=== PATIENT | female | born 1975 | race Caucasian/White ===

== ENCOUNTER → 2020-02-04 09:31 | Outpatient (REF) | payer OTHER, SELFPAY ==
--- NOTE | 2020-02-04 09:30 | CA_ITS ---
Transthoracic Echocardiogram Patient (Last, First, Middle): Brook oGnzales, Gender: Female Date of : 1975 Age: 44 Procedure Date: 02/04/2020 Procedure Type: Transthoracic Echocardiogram Location: OP Height: 157.48 cm Weight: 116.58 kg BSA: 2.13 m2 Heart Rate: bpm BP: 110 / 78 mmHg Coding Specialist: Referring MD: Abdias Yu MD Symptoms: I50.20 HFrEF,I42.8 NON ISCHEMIC CMP, I10 HTN Study Quality: Good ECG Rhythm: Sinus Conclusions: - The left ventricular systolic function is severely decreased. The visually estimated ejection fraction is between 25-30%. Findings Procedure Information Contrast agent, definity, is being given per protocol without apparent complications. Left Ventricle Normal left ventricular cavity size. The left ventricular systolic function is severely decreased. The visually estimated ejection fraction is between 25-30%. The calculated ejection fraction is 29% by biplane method. There is severe global hypokinesis. Prior Study Comparison No significant change compared to prior study dated: 08/10/2019. Measurements 2D Linear Measurements LVIDd: 5.03 3.9-5.3/4.2-5.9 cm LVIDd Index: 2.36 2.4-3.2/2.2-3.1 cm/m2 LVIDs: 4.25 2.0-3.6 cm 2D Systolic Function EF 4C: 24.20 >55% EF 2C: 32.10 >55% EF BiP: 28.60 >55% Mitral Valve MV Pk E: 0.79 MV PK A: 0.67 MV Decel Time: 211.00 E/A: 1.20 E'Lateral: 4.14 E'Medial: 3.97 E/E' Med: 19.90 E/E' Lat: 19.10 PHT: 62.00 MVA PHT: 3.55 Decel [place]: 3.74 Diastolic Function MV Pk E: 0.79 MV Pk A: 0.67 E/A: 1.20 E'Medial: 3.97 E/E' Med: 19.90 E' Laterial: 4.14 E/E' Lat: 19.10 Updated in Other Vendor System with Status of Final Ruben Patel MD electronically signed on 02/06/2020 12:42:51 PM with status of Final
== END ==
LOC: HO.CARD 09:31
PROVIDERS: Visit Provider Internal Medicine Cardiovascular Disease
DX: I42.8 Other cardiomyopathies (principal); I11.0 Hypertensive heart disease with heart failure; I50.20 Unspecified systolic (congestive) heart failure
CPT/HCPCS: 93308; Q9957

== ENCOUNTER → 2020-02-11 10:58 | Outpatient (BNVA) | payer OTHER, SELFPAY | PROVIDERS: PCP Internal Medicine; Visit Provider Internal Medicine Cardiovascular Disease | DX: I50.22 Chronic systolic (congestive) heart failure (principal); I42.8 Other cardiomyopathies | CPT/HCPCS: 99212 ==

== ENCOUNTER 2020-06-04 12:05 | Inpatient (IN) | payer OTHER, SELFPAY ==
[2020-06-04] VITALS (13 sets, daily range): BP systolic 142–200; BP diastolic 77–130; PULSE 90–103; RESP 16–22; TEMP 36–37.1; O2SAT 95–100; BMI 51.0
--- NOTE | ~2020-06-04 | XR_ITS ---
EXAMINATION: XR CHEST CLINICAL INFORMATION: Pneumonia. Follow-up. COMPARISON: CT chest noncontrast 06/04/2020, chest radiographs 06/04/2020, 07/10/2019 TECHNIQUE: 2 views of the chest were obtained. FINDINGS: There is groundglass opacity right lateral base better appreciated on the CT study. Subsegmental atelectasis is seen right midlung zone. The effusions are decreased with only minimal blunting posterior costophrenic sulci. The vascularity is normal. The cardiac and hilar and mediastinal contours and bony structures are unremarkable. XR/XR chest 2V IMPRESSION: 1. Groundglass opacity right lateral base similar to CT 06/04/2020. 2. Subsegmental atelectasis right mid zone. 3. Small bibasilar effusions decreased.
--- NOTE | ~2020-06-04 | CT_ITS ---
EXAMINATION: CT CHEST WITHOUT CONTRAST CLINICAL INFORMATION: Abnormality seen on abdominal CT same day COMPARISON: CT abdomen earlier today, chest radiograph earlier today, chest CT 09/29/2019 TECHNIQUE: Multidetector volumetric CT imaging of the chest was done. Axial MIP volume rendering provided. Sagittal and coronal reformatted images were obtained. This CT examination was performed using dose optimization techniques as appropriate, variously including the following: *Automated exposure control *Adjustment of mA and/or kV according to patient size (this includes techniques or standardized protocols for targeted exams where dose is matched to indication/reason for exam; i.e. extremities or head) *Use of iterative reconstruction technique DLP: 424 mGy-cm FINDINGS: LUNGS and PLEURA: Nonspecific mosaic groundglass changes are present mostly dependently in both lungs with associated small bilateral pleural effusions and associated generalized thickening of interstitium. These findings are mostly suggestive of CHF with interstitial edema. Consolidation/groundglass opacities are seen in the anterobasal segment of the right lower lobe as well as anteriorly in the right middle lobe. No other focal opacities are seen. MEDIASTINUM: Mediastinal nodes are present in the AP window region as well as the pretracheal region the largest measuring 2.6 x 2.1 cm, AXILLA: No lymphadenopathy. UPPER ABDOMEN: See CT abdomen report from earlier today. A cyst is present in the liver. OSSEOUS STRUCTURES: Unremarkable. CT/CT chest wo con IMPRESSION: Cardiomegaly and increased interstitial markings with bilateral pleural effusions. The most likely diagnosis is CHF with interstitial edema. Associated focal infiltrates in the right middle lobe and right lower lobe may be infectious. Nonspecific mediastinal nodes most likely reactive.
--- NOTE | ~2020-06-04 | XR_ITS ---
EXAMINATION: XR CHEST CLINICAL INFORMATION: Cough. Shortness of breath. COMPARISON: Chest done on 07/10/2019. TECHNIQUE: 2 views of the chest were obtained. FINDINGS: Previously documented dense airspace opacity at left mid to lower lung field shows interval resolution. The cardiac mediastinal silhouette is enlarged. There is diffuse apparent opacity identified within the right mid to lower lung field, may represent layering pleural effusion versus asymmetric edema. Small left-sided pleural effusion is present. Mild pulmonary venous congestion. XR/XR chest 2V IMPRESSION: 1. Enlarged cardiac mediastinal silhouette with asymmetric opacity within the right mid to lower lung field, may represent asymmetric pulmonary edema/infiltrate/combination thereof versus layering effusion. Small left-sided pleural effusion is also noted. 2. Previously documented dense airspace opacity at left mid to lower lung field shows interval resolution.
--- NOTE | ~2020-06-04 | CT_ITS ---
EXAMINATION: CT ABDOMEN AND PELVIS WITH CONTRAST CLINICAL INFORMATION: Right-sided abdominal pain. COMPARISON: 09/29/2019 TECHNIQUE: Multidetector volumetric images were obtained from the superior aspect of the liver through the pubic symphysis following administration 85 mL of Omnipaque 350 intravenous contrast. Sagittal and coronal reformatted images were obtained on the technologist's workstation. Oral contrast: No This CT examination was performed using dose optimization techniques as appropriate, variously including the following: *Automated exposure control *Adjustment of mA and/or kV according to patient size (this includes techniques or standardized protocols for targeted exams where dose is matched to indication/reason for exam; i.e. extremities or head) *Use of iterative reconstruction technique DLP: 1102 mGy-cm FINDINGS: LUNG BASES: There is diffuse groundglass haziness in both lower lobes and a patchy airspace consolidation right upper lobe anterior segment adjacent to the major fissure. Heart size is mildly enlarged. There is small bilateral pleural effusions. LIVER, GALLBLADDER, AND BILIARY TREE: The liver is normal in size, shape, and attenuation. There is a 1.1 cm lesion in the right hepatic lobe caudate segment. No additional lesions seen. The gallbladder is nondistended with enhancing area within the gallbladder lumen. There is very gallbladder fluid collection. Similar findings were seen on previous study. Findings are suspicious for cholecystitis. No radiopaque calculi seen. The CBD is normal caliber. PANCREAS: Unremarkable. SPLEEN: Unremarkable. ADRENAL GLANDS: Unremarkable. KIDNEYS AND URETERS: The kidneys are normal in size, shape, and attenuation. No hydronephrosis, hydroureter, or calculi seen. No perinephric stranding. BLADDER: Unremarkable. GASTROINTESTINAL TRACT: There is scattered stool, diverticuli and gas seen throughout the colon without significant distention. The small bowel loops are normal caliber. Appendix is normal caliber. There is no free air or free fluid seen.. ABDOMINAL WALL: There are 2 midline supraumbilical and infraumbilical hernias containing fat . Also visualized is a small umbilical hernia. There is mild haziness in the abdominal wall. LYMPH NODES: Normal. VASCULAR: Unremarkable. PELVIC VISCERA: There is mild fat stranding in the adnexa bilaterally. A pelvic mass seen. The uterus is anteverted and appears unremarkable. No free fluid seen in the cul-de-sac. OSSEOUS STRUCTURES: Mild ventral spondylosis lower dorsal spine. No lytic process. There is mild sclerosis involving bilateral SI joints similar to previous study. CT/CT abdomen pelvis w con IMPRESSION: Right lateral small pleural effusions with bibasilar groundglass attenuation likely low-grade inflammation. Addition there is a right lower lobe anterior segment infiltrate. Mild cardiomegaly. Slight interval or dense area or enhancement in the gallbladder lumen with mild thickening and surrounding fluid suspicious for acalculus cholecystitis. Similar findings were seen on the previous exam 2019. Hepatic cyst is stable. Umbilical, supraumbilical and infraumbilical midline hernias containing fat. These are stable. Mild haziness in abdominal wall could be secondary to mild edema. There is minimal haziness in the parametrium bilaterally similar previous study. Bilateral sacroiliitis similar to previous study from 2019
--- NOTE | ~2020-06-04 | NM_ITS ---
EXAMINATION: NM IMAGING STUDY WITH CCK BILIARY TRACT CLINICAL INFORMATION: Acalculus cholecystitis COMPARISON: 06/04/2020 TECHNIQUE: Serial gamma scintillation camera images were obtained over the abdomen for a total observation period of 90 minutes following the intravenous administration of 5 mCi Tc-99m mebrofenin. FINDINGS: Prompt homogeneous radiotracer accumulation in the liver. The gallbladder is visualized rapidly, by 15 minutes. Radiotracer accumulation within the small bowel is visible by 15 minutes as well, increasing progressively. At 60 minutes post injection, a 30-minute infusion of 2.5 mcg Sincalide was then begun and an additional 40 minutes of images were obtained. The calculated gallbladder ejection fraction is 53% (normal gallbladder ejection fraction is greater than 35%). NM/AR hepatobiliary w pharm IMPRESSION: Normal hepatobiliary scintigraphy. Radiotracer accumulation in the gallbladder is strong evidence of a patent cystic duct. Normal gallbladder ejection fraction.
--- NOTE | 2020-06-04 13:01 | ED_ITS ---
HPI - General Adult General Chief complaint: General Medical Stated complaint: multiple complaints Time Seen by Provider: 06/04/20 12:40 Source: patient Mode of arrival: ambulatory Limitations: no limitations History of Present Illness HPI narrative: 44-year-old female who presents emergency department for evaluation of abdominal pain, shortness of breath, cough and chest pain. The patient states she has been having constant, abdominal pain x2 weeks. The patient runs or hand over her entire abdomen when asked to localize the pain but she states that the right side of her abdomen hurts more than her left, the pain is constant, sharp, associated with distension, nausea with no vomiting. She states that she has had very small bowel movements over the past 2 weeks. She has been passing gas. She states she has had similar pain in the past when she has had gastritis. She states that she is feeling short of breath x1 month and it has gotten progressively worse. She states she has intermittent, sharp, l eft-sided chest pain which lasts minutes and she has had multiple episodes over the past 2 weeks. She has noted increased swelling of her lower extremities x2 weeks. She has had a cough which is productive of mucus occasionally productive of blood. She has had sweats with no fever. The patient states she has 2 abdominal hernias and she states that her hernias feels distended and are painful. The patient has not had a COVID-19 inspection. She has not been vaccinated for COVID-19. Related Data Home Medications Medication Instructions Recorded Confirmed amitriptyline 25 mg tablet 25 mg PO BEDTIME 02/11/20 02/11/20 bupropion HCl 150 mg 24 hr tablet, 150 mg PO QAM 02/11/20 02/11/20 extended release carvedilol 25 mg tablet 25 mg PO BID 02/11/20 02/11/20 paroxetine HCl 30 mg tablet 30 mg PO DAILY 02/11/20 02/11/20 spironolactone 50 mg tablet 50 mg PO DAILY 02/11/20 02/11/20 zolpidem 10 mg tablet 10 mg PO BEDTIME PRN 02/11/20 02/11/20 Previous Rx's Medication Instructions Recorded blood pressure monitor #1 ea 02/11/20 empagliflozin 10 mg tablet 10 mg PO DAILY #30 tab 02/11/20 metolazone 2.5 mg tablet 2.5 mg PO .weekly #20 tab 02/11/20 sacubitril 97 mg-valsartan 103 mg 1 tab PO BID #60 tab 02/11/20 tablet bumetanide 2 mg tablet 2 mg PO BID #60 tab 03/16/20 Allergies Allergy/AdvReac Type Severity Reaction Status Date / Time SEASONAL ALLERGIES Allergy Unknown ASTHMA, Uncoded 06/04/20 12:12 NASAL CONGESTION Review of Systems Review of Systems: Yes all other systems are reviewed and are negative Neurologic: Reports Abnormal speech present [facility] Past Medical History [facility] Narrative: The patient smokes 1 pack of cigarettes per day times greater than 30 years, she cuticle drinks alcohol, she denies alcohol use. Source: unable to obtain Medical History Chronic HFrEF (heart failure with reduced ejection fraction) HTN (hypertension) Nonischemic cardiomyopathy Obesity JONI (obstructive sleep apnea) Surgical History Hx of section Family History Family History Mother HTN (hypertension) Social History Social History Alcohol intake: never Smoking Status: Current every day smoker Use of substances other than those prescribed or required for medical reasons: No Advance Directives: No Advance Directives Information Provided: Yes Physical Exam Vital Signs: Vital Signs: Last Vital Signs Temp 98.0 F 06/04/20 13:50 Pulse 103 H 06/04/20 13:50 Resp 16 06/04/20 16:20 BP 187/112 H 06/04/20 13:50 Pulse Ox 96 06/04/20 13:50 Body Mass Index 51.0 Const: General: cooperative Nutritional Appearance: obese morbidly obese Orientation/consciousness: oriented to person and oriented to place Limitations: no limitations HENMT: Head: Yes normal to inspection, Yes normocephalic and Yes atraumatic Ears: external ears normal General nose exam: Normal external nose present Face and sinus: Yes normal facial exam Mouth: Normal oral and palatal mucosa present Throat: Yes posterior oropharynx normal Eyes: Periorbital: periorbital findings normal Eyelids: Yes eyelids normal Conjunctivae: conjunctivae normal Sclerae: sclerae normal Corneas: corn eas normal Pupils: Equal, round and reactive pupils present Direct Ophthalmoscopy: normal light reflex Neck: Neck: Yes full ROM, Yes no lymphadenopathy, Yes no meningeal signs, Yes trachea midline and Yes supple Chest: Chest palpation & inspection: normal inspection of the chest and normal palpation of entire chest wall Resp: Effort & Inspection: normal respiratory effort and able to speak in complete sentences Auscultation: clear to auscultation bilaterally Cardio: Rate: regular rate Rhythm: regular rhythm Heart sounds: S1 normal heart sound present, S2 normal heart sound present and no murmurs GI: Other: Tender been abdominal hernia and periumbilical hernia Inspection: Yes normal to inspection and Yes obesity Palpation (GI): Soft to palpation, Tenderness to palpation present (GI) ([id number], diffuse tenderness) in the RLQ (Moderate) and in the RUQ (Moderate), no guarding, not rigid and No hepatosplenomegaly present : General: Yes no CVA tenderness Back/Spine/Pelvis: Back: no CVA tenderness Cervical Spine: normal cervical lordosis Thoracic/Lumbar Spine: thoracic and lumbar spine normal to inspection Skin: Lesions: no lesions Rashes: no rashes Wounds: no wounds Neuro: General: oriented to person, oriented to place and no meningeal signs Cranial nerves: Yes Equal, round and reactive pupils present Cognition (Neuro): normal cognition Speech: Abnormal speech present Motor exam (neuro): 5/5 motor strength present throughout Extrem: Other: Trace to 1+ pitting edema, symmetric General: Yes normal to inspection and Yes full ROM Psych: Appearance: well kempt Mental Status: mental status grossly normal Speech and movement: Normal speech and movement present Affect: normal affect Attitude: cooperative Thought process: Normal thought process present Thought content: Normal thought content present Course Course Course Narrative: 44-year-old female who presents emergency department for evaluation of abdominal pain, shortness of breath, cough and chest pain. Physical examination revealed a morbidly obese female with abnormal vital signs including an elevated blood pressure of 200/130, elevated pulse of 103 and elevated respiratory rate of 22. O2 saturation was 100% on room air and she was afebrile. Examination revealed diffuse abdominal tenderness with increased tenderness over the right upper and right lower quadrants of her abdomen. The patient does have to soft abdominal hernias, on located in the mid abdomen 1 periumbilical. I ordered a CBC, CMP, lipase, troponin, EKG, two view chest x- ray and a CT scan of the abdomen pelvis with IV contrast only. Patient's pain w as treated with morphine 4 mg IV and Zofran 4 mg IV. She was also ordered to get normal saline x1 L IV. 1557: The patient's laboratory evaluation [place] an [place] [address], patient had an elevated BNP of 2519 and an elevated troponin of 48.2. LFTs and lipase were normal. COVID-19 test was negative. Chest x-ray revealed asymmetric opacities within the right mid and lower lung [place] which the radiologist felt could be consistent with an asymmetric pulmonary edema versus infiltrate versus layering pleural effusion. CT scan of the abdomen pelvis revealed diffuse ground-glass haziness in both lower lobes and a patchy airspace consolidation in the right upper lobe anterior segment adjacent to the major fissure. This is concerning for possible pneumonia. The patient's gallbladder is nondistended with enhanced area within the gallbladder lumen with mild thickening and surrounding fluid suspicious for a calculous cholecystitis. Patient does have supraumbilical and infraumbilical hernias which are containing fat only. Given these findings, I am concerned that the patient may have a of right-sided pneumonia and right acalculous cholecystitis. Blood cultures will be obtained. Patient also has an elevation in her high sensitivity troponin this will be repeated at 4:30 p.m.. The patient will be treated with Zosyn 4.5 g IV which we give her lung and intra-abdominal coverage. Patient's pain only slightly improved with the initial dose of morphine therefore she was ordered to get a 2nd dose of morphine 4 mg IV. I will discuss the patient's presentation with the covering hospitalist and with the covering surgeon. 1616: I did discuss the patient's presentation with the covering surgical physician property management assistant, Mr. Dutton. He recommended that the patient be admitted and that the patient get a HIDA scan to further evaluate her gallbladder. 16 40: I did discuss the patient's presentation with the covering hospitalist, Dr. Brower. He recommended the patient get a CT scan of the chest without IV contrast evaluate for pneumonia versus CHF. The patient will be admitted to the hospitalist service for further treatment. Medical Decision Making Lab Data Result diagrams: 06/04/20 13:33 04/10/21 13:33 Labs: Lab Results 06/04/20 06/04/20 06/04/20 Range/Units 13:20 13:33 13:33 WBC 14.2 H (4.8-10.8) X10*3/uL RBC 4.90 (4.20-5.50) X10*6/uL Hgb 12.8 (12.0-16.0) g/dl Hct 41.5 (37-47) % MCV 84.7 (80-98) fL MCH 26.1 L (27.0-33.0) pg MCHC 30.8 L (31.0-35.0) g/dl RDW 16.6 H (11.0-16.0) % Plt Count 253 (160-400) X10*3/uL MPV 10.5 (9.4-12.3) fL Immature Gran % (Auto) 0.4 (0.0-0.4) % Neut % (Auto) 79.8 H (45-73) % Lymph % (Auto) 14.0 L (20-40) % [place] % (Auto) 4.9 (2-11) % Eos % (Auto) 0.7 (0-4) % Baso % (Auto) 0.2 (0-2) % Lymph # (Auto) 2.0 (1.2-4.9) X10*3/uL [place] # (Auto) 0.7 (0.1-1.2) X10*3/uL Eos # (Auto) 0.1 (0.0-0.4) X10*3/uL Baso # (Auto) 0.0 (0.0-0.2) X10*3/uL Abs Immat Gran (auto) 0.06 H (0.00-0.03) X10*3/uL Absolute Neuts (auto) 11.3 H (2.0-8.3) X10*3/uL Absolute Nucleated RBC 0.000 (0.0-0.012) X10*3/uL Nucleated RBC % (auto) 0.0 (0.0-0.2) /100WBC PT (10.8-13.0) SEC INR (0.9-1.1) APTT (24.1-38.0) SEC Sodium (135-145) mmol/L Potassium (3.3-5.1) mmol/L Chloride (96-108) mmol/L Carbon Dioxide (22-29) mmol/L Anion Gap (12-20) BUN (9-16) mg/dL Creatinine (0.5-1.4) mg/dL Estim Creat Clear Calc Estimated GFR Random Glucose (60-115) mg/dL Lactic Acid (0.5-2.0) mmol/L Calcium (8.4-10.2) mg/dL Total Bilirubin (0.0-1.0) mg/dL AST (5-31) U/L ALT (0-31) U/L Alkaline Phosphatase (39-117) U/L Troponin I High Sens (<3.5-17.0) ng/L B-Natriuretic Peptide 2519 H (<100) pg/mL Total Protein (6.5-8.0) g/dL Albumin (3.5-5.0) g/dL Lipase (8-78) U/L COVID-19 (ANABELLA) Negative (Negative) COVID-19 Clin Com See Note 06/04/20 06/04/20 06/04/20 Range/Units 13:33 13:33 13:33 WBC (4.8-10.8) X10*3/uL RBC (4.20-5.50) X10*6/uL Hgb (12.0-16.0) g/dl Hct (37-47) % MCV (80-98) fL MCH (27.0-33.0) pg MCHC (31.0-35.0) g/dl RDW (11.0-16.0) % Plt Count (160-400) X10*3/uL MPV (9.4-12.3) fL Immature Gran % (Auto) (0.0-0.4) % Neut % (Auto) (45-73) % Lymph % (Auto) (20-40) % [place] % (Auto) (2-11) % Eos % (Auto) (0-4) % Baso % (Auto) (0-2) % Lymph # (Auto) (1.2-4.9) X10*3/uL [place] # (Auto) (0.1-1.2) X10*3/uL Eos # (Auto) (0.0-0.4) X10*3/uL Baso # (Auto) (0.0-0.2) X10*3/uL Abs Immat Gran (auto) (0.00-0.03) X10*3/uL Absolute Neuts (auto) (2.0-8.3) X10*3/uL Absolute Nucleated RBC (0.0-0.012) X10*3/uL Nucleated RBC % (auto) (0.0-0.2) /100WBC PT (10.8-13.0) SEC INR (0.9-1.1) APTT (24.1-38.0) SEC Sodium 139 (135-145) mmol/L Potassium 4.4 (3.3-5.1) mmol/L Chloride 109 H (96-108) mmol/L Carbon Dioxide 19 L (22-29) mmol/L Anion Gap 15 (12-20) BUN 17 H (9-16) mg/dL Creatinine 0.77 (0.5-1.4) mg/dL Estim Creat Clear Calc 115.4 Estimated GFR > 60 Random Glucose 104 (60-115) mg/dL Lactic Acid 1.2 (0.5-2.0) mmol/L Calcium 8.5 (8.4-10.2) mg/dL Total Bilirubin 1.7 H (0.0-1.0) mg/dL AST 24 (5-31) U/L ALT 22 (0-31) U/L Alkaline Phosphatase 75 (39-117) U/L Troponin I High Sens 48.2 H (<3.5-17.0) ng/L B-Natriuretic Peptide (<100) pg/mL Total Protein 6.7 (6.5-8.0) g/dL Albumin 3.7 (3.5-5.0) g/dL Lipase 8 (8-78) U/L COVID-19 (ANABELLA) (Negative) COVID-19 Clin Com 06/04/20 Range/Units 14:24 WBC (4.8-10.8) X10*3/uL RBC (4.20-5.50) X10*6/uL Hgb (12.0-16.0) g/dl Hct (37-47) % MCV (80-98) fL MCH (27.0-33.0) pg MCHC (31.0-35.0) g/dl RDW (11.0-16.0) % Plt Count (160-400) X10*3/uL MPV (9.4-12.3) fL Immature Gran % (Auto) (0.0-0.4) % Neut % (Auto) (45-73) % Lymph % (Auto) (20-40) % [place] % (Auto) (2-11) % Eos % (Auto) (0-4) % Baso % (Auto) (0-2) % Lymph # (Auto) (1.2-4.9) X10*3/uL [place] # (Auto) (0.1-1.2) X10*3/uL Eos # (Auto) (0.0-0.4) X10*3/uL Baso # (Auto) (0.0-0.2) X10*3/uL Abs Immat Gran (auto) (0.00-0.03) X10*3/uL Absolute Neuts (auto) (2.0-8.3) X10*3/uL Absolute Nucleated RBC (0.0-0.012) X10*3/uL Nucleated RBC % (auto) (0.0-0.2) /100WBC PT 14.9 H (10.8-13.0) SEC INR 1.3 H (0.9-1.1) APTT 30.3 (24.1-38.0) SEC Sodium (135-145) mmol/L Potassium (3.3-5.1) mmol/L Chloride (96-108) mmol/L Carbon Dioxide (22-29) mmol/L Anion Gap (12-20) BUN (9-16) mg/dL Creatinine (0.5-1.4) mg/dL Estim Creat Clear Calc Estimated GFR Random Glucose (60-115) mg/dL Lactic Acid (0.5-2.0) mmol/L Calcium (8.4-10.2) mg/dL Total Bilirubin (0.0-1.0) mg/dL AST (5-31) U/L ALT (0-31) U/L Alkaline Phosphatase (39-117) U/L Troponin I High Sens (<3.5-17.0) ng/L B-Natriuretic Peptide (<100) pg/mL Total Protein (6.5-8.0) g/dL Albumin (3.5-5.0) g/dL Lipase (8-78) U/L COVID-19 (ANABELLA) (Negative) COVID-19 Clin Com ECG Data Attestation: I personally reviewed and interpreted this ECG as follows: Interpretation: 1611: Normal sinus rhythm of rate is 97, normal IN and QRS intervals, prolonged QTC interval of 485 milliseconds, inverted T-waves in lead V5 and V6, no ST segment elevation or depression, no old EKG for comparison. Discharge Plan Discharge Prescriptions: No Action bumetanide 2 mg tablet 2 mg PO BID Qty: 60 RF: 0 carvedilol 25 mg tablet 25 mg PO BID RF: 0 spironolactone 50 mg tablet 50 mg PO DAILY RF: 0 bupropion HCl 150 mg tablet extended release 24 hr 150 mg PO QAM RF: 0 zolpidem 10 mg tablet 10 mg PO BEDTIME PRNRF: 0 paroxetine HCl 30 mg tablet 30 mg PO DAILY RF: 0 amitriptyline 25 mg tablet 25 mg PO BEDTIME RF: 0 Entresto 97-103 mg tablet 1 tab PO BID Qty: 60 RF: 3 Jardiance 10 mg tablet 10 mg PO DAILY Qty: 30 RF: 2 metolazone 2.5 mg tablet 2.5 mg PO .weekly Qty: 20 RF: 5 (DME) blood pressure monitor [Blood Pressure Kit] Kit See Rx Instructions .ROUTE .MEDSUPPLY Qty: 1 RF: 0
[2020-06-04 13:38] LABS: MANUAL DIFF FLAG NO
[2020-06-04 13:41] LABS: Basophils Percent Auto 0.2 % (0-2); Eosinophils Absolute Auto 0.1 X10*3/uL (0.0-0.4); Eosinophils Percent Auto 0.7 % (0-4); Hematocrit 41.5 % (37-47); Hemoglobin 12.8 g/dl (12.0-16.0); Imm Gran Abs Auto 0.06 X10*3/uL (0.00-0.03); Imm Gran Pct Auto 0.4 % (0.0-0.4); Mean Corpuscular HGB Conc 30.8 g/dl (31.0-35.0); Mean Corpuscular Hemoglobin 26.1 pg (27.0-33.0); Mean Corpuscular Volume 84.7 fL (80-98); Mean Platelet Volume 10.5 fL (9.4-12.3); Monocytes Absolute Auto 0.7 X10*3/uL (0.1-1.2); Monocytes Percent Auto 4.9 % (2-11); Neutrophils Absolute Auto 11.3 X10*3/uL (2.0-8.3); Neutrophils Percent Auto 79.8 % (45-73); Platelet Count 253 X10*3/uL (160-400); Red Cell Distribution Width 16.6 % (11.0-16.0); White Blood Count 14.2 X10*3/uL (4.8-10.8)
[2020-06-04] MEDS: Morphine Sulfate 4 MG/ML CARTRIDGE IVPUSH ×2 (13:41→16:20)
[2020-06-04] MEDS: ondansetron HCL 4 MG/2 ML VIAL IVPUSH (13:41)
[2020-06-04] MEDS: 0.9 % Sodium Chloride 1,000 ML 999 ML IV (13:41)
[2020-06-04 13:54] LABS: COVID-19 Test Negative (Negative); IDNOW Serial# 9DD0AD1C
[2020-06-04 14:04] LABS: Lactic Acid 1.2 mmol/L (0.5-2.0)
[2020-06-04 14:10] LABS: Alanine Aminotransferase 22 U/L (0-31); Albumin Level 3.7 g/dL (3.5-5.0); Alkaline Phosphatase 75 U/L (39-117); Anion Gap 15 (12-20); Aspartate Amino Transferase 24 U/L (5-31); B Type Natriuretic Peptide 2519 pg/mL (<100); Bilirubin Total 1.7 mg/dL (0.0-1.0); Blood Urea Nitrogen 17 mg/dL (9-16); Calcium 8.5 mg/dL (8.4-10.2); Carbon Dioxide 19 mmol/L (22-29); Chloride 109 mmol/L (96-108); Creatinine Clr Calc Pharmacy 115.4; Estimated Glomerular Filt Rate > 60; Glucose Random 104 mg/dL (60-115); Lipase 8 U/L (8-78); Potassium 4.4 mmol/L (3.3-5.1); Sodium 139 mmol/L (135-145); Total Protein 6.7 g/dL (6.5-8.0)
[2020-06-04 14:19] LABS: Troponin-I High Sensitivity 48.2 ng/L (<3.5-17.0)
[2020-06-04 14:36] LABS: INTERNATIONAL NORM RATIO 1.3 (0.9-1.1); Prothrombin Time 14.9 SEC (10.8-13.0)
[2020-06-04 14:39] LABS: Partial Thromboplastin Time 30.3 SEC (24.1-38.0)
[2020-06-04] MEDS: iohexoL 350 MG/ML 100 ML INFUS..BTL IV (14:59)
--- NOTE | 2020-06-04 15:58 | ECG_ITS ---
Test Reason : ABDOMINAL PAIN Blood Pressure : / mmHG Vent. Rate : 097 BPM Atrial Rate : 097 BPM P-R Int : 152 ms QRS Dur : 092 ms QT Int : 382 ms P-R-T Axes : 066 037 049 degrees QTc Int : 485 ms Normal sinus rhythm Possible Left atrial enlargement Left ventricular hypertrophy with repolizeration abnormality. Prolonged QT Abnormal ECG When compared with ECG of 10-JUL-2019 13:18, Nonspecific T wave abnormality now evident in Inferior leads Referred By: Valeriano Laguna Electronically Signed By:BISI WASHINGTON
[2020-06-04] MEDS: Piperacillin Sodium/Tazobactam 4.5 GM in 0.9 % Sodium Chloride 100 ML IV ×2 (17:01→20:24)
--- NOTE | 2020-06-04 17:43 | P.HPHOSP_ITS ---
History of Present Illness Date of Service: 06/04/20 Chief Complaint: generalized swelling, dyspnea, RUQ pain Ms Gonzales is a 44 year-old Hungarian- and Iranian-speaking woman with severe nonischemic cardiomyopathy (LVEF 25% 02/04/20) followed by Abdias Yu here at [facility] [place], essential hypertension, JONI on CPAP, and morbid obesity who presents with approximately 3 months of worsening swelling of her legs and abdomen, nearly 50- pound weight gain (dry weight approximately 220 lb), increasing dyspnea on exertion, and 3-pillow orthopnea. She also notes an intermittent dry cough over the last month or so, and today coughed up some blood. She denies fever, nasal congestion, anosmia, or sore throat. She denies contact with any COVID-19 cases. Her , with whom she lives, had his 2nd dose of the COVID-19 vacc ine today; the patient has not had any COVID-19 vaccination. Over the last 2 weeks, she has also developed severe pain in her right upper quadrant, just under her ribcage. The pain is constant and not exacerbated by eating fatty foods. It is associated with nausea and bloating. In the ED, she was noted to be severely hypertensive with BP 200/130; currently 170/116. Room air SaO2 was 100% EKG showed NSR with LAE and LVH with strain pattern. CXR demonstrated cardiac enlargement with asymmetric opacity in the right mid-to lower-lung field concerning for asymmetric pulmonary edema or infiltrate or layering effusion, with a small left-sided effusion. CT of the abdomen demonstrated bibasilar groundglass opacities of the lungs, an anterior RLL infiltrate, enhancement and thickening of the gallbladder with surrounding fluid suspicious for acalculous cholecystitits, stable periumbilical hernias, and haziness of the abdominal wall. She was given about 500 mL of normal saline and a dose of IV piperacillin/tazobactam. At that point, the hospitalist team was called to evaluate and admit the patient. Review of Systems Review of Systems: Yes all other systems are reviewed and are negative [facility] Medical History Chronic HFrEF (heart failure with reduced ejection fraction) HTN (hypertension) Nonischemic cardiomyopathy Obesity JONI (obstructive sleep apnea) Family History Mother HTN (hypertension) Surgical History Hx of section Social History Alcohol intake: never Smoking Status: Current every day smoker Use of substances other than those prescribed or required for medical reasons: No Advance Directives: No Advance Directives Information Provided: Yes Meds Allergies Allergy/AdvReac Type Severity Reaction Status Date / Time SEASONAL ALLERGIES Allergy Unknown ASTHMA, Uncoded 06/04/20 12:12 NASAL CONGESTION Active Medications: Current Medications Generic Name Dose Route Start Last Admin Trade Name Freq PRN Reason Stop Dose Admin Acetaminophen 650 mg 06/04/20 17:35 Acetaminophen 325 Mg Tablet PO Q6H PRN fever or pain Carvedilol 25 mg 06/04/20 21:00 Carvedilol 25 Mg Tablet PO BID JOSTIN Protocol Chlorothiazide Sodium 500 mg 06/04/20 17:34 Chlorothiazide Sodium 500 Mg Vial IVPUSH 06/04/20 17:35 ONCE ONE Protocol Docusate Sodium 100 mg 06/04/20 17:35 Docusate Sodium 100 Mg Capsule PO BID PRN Constipation Enoxaparin Sodium 40 mg 06/04/20 17:45 Enoxaparin Sodium 40 Mg/0.4 Ml Syringe SUBCUT Q24H JOSTIN Bumetanide 25 mg/ IV 100 mls @ 2 mls/hr 06/04/20 17:45 Miscellaneous Supplies IVCONT .Q24H JOSTIN 0.5 MG/HR Loratadine 10 mg 06/05/20 09:00 Loratadine 10 Mg Tablet PO DAILY JOSTIN Ondansetron HCl 4 mg 06/04/20 17:35 Ondansetron Hcl 4 Mg/2 Ml Vial IVPUSH Q8H PRN Nausea and Vomiting Pharmacy Consult 1 each 06/04/20 16:43 Consult Rx Perform Med Rec MISCELLANE ONCE PRN Consult order Sodium Chloride 3 ml 06/05/20 00:00 0.9 % Sodium Chloride Flush 3 Ml Syringe IVFLUSH QSHIFT [facility] Home Medications Medication Instructions Recorded Confirmed Last Taken Type carvedilol 25 mg tablet 25 mg PO BID 02/11/20 06/04/20 Unknown History spironolactone 50 mg tablet 50 mg PO DAILY 02/11/20 06/04/20 Unknown History bumetanide 1 tab PO BID 06/04/20 06/04/20 Unknown History cetirizine 1 tab PO DAILY 06/04/20 06/04/20 Unknown History Physical Exam Vital Signs and Narrative: Vital Signs: Last Vital Signs Temp 98.8 F 06/04/20 17:06 Pulse 93 06/04/20 17:06 Resp 17 06/04/20 17:06 BP 170/116 H 06/04/20 17:06 Pulse Ox 100 06/04/20 17:06 Body Mass Index 51.0 Gen: in no acute distress but with obvious generalized edema HEENT: sclera anicteric, moist mucus membranes Neck: supple Lungs: diminished at bases bilaterally Heart: regular rate and rhythm, no murmurs though auscultation limited due to body habitus, JVD Abd: soft, obese, RUQ tender without Pizano sign, generalized abdominal wall edema Ext: 3+ pitting LE edema Skin: warm/well-perfused Neuro: alert and oriented x3, no focal findings Psych: appropriate affect Results Labs CBC and Chem 7: 06/04/20 13:33 06/04/20 13:33 Labs: Laboratory Results - last 24 hr 06/04/20 06/04/20 06/04/20 13:20 13:33 13:33 MCV 84.7 MCH 26.1 L MCHC 30.8 L RDW 16.6 H Plt Count 253 MPV 10.5 Immature Gran % (Auto) 0.4 Neut % (Auto) 79.8 H Lymph % (Auto) 14.0 L Sibley % (Auto) 4.9 Eos % (Auto) 0.7 Baso % (Auto) 0.2 Lymph # (Auto) 2.0 Sibley # (Auto) 0.7 Eos # (Auto) 0.1 Baso # (Auto) 0.0 Abs Immat Gran (auto) 0.06 H Absolute Neuts (auto) 11.3 H Absolute Nucleated RBC 0.000 Nucleated RBC % (auto) 0.0 PT INR APTT Anion Gap Estim Creat Clear Calc Estimated GFR Random Glucose Lactic Acid Calcium Total Bilirubin AST ALT Alkaline Phosphatase Troponin I High Sens B-Natriuretic Peptide 2519 H Total Protein Albumin Lipase COVID-19 (ANABELLA) Negative COVID-19 Clin Com See Note 06/04/20 06/04/20 06/04/20 13:33 13:33 13:33 MCV MCH MCHC RDW Plt Count MPV Immature Gran % (Auto) Neut % (Auto) Lymph % (Auto) Sibley % (Auto) Eos % (Auto) Baso % (Auto) Lymph # (Auto) Sibley # (Auto) Eos # (Auto) Baso # (Auto) Abs Immat Gran (auto) Absolute Neuts (auto) Absolute Nucleated RBC Nucleated RBC % (auto) PT INR APTT Anion Gap 15 Estim Creat Clear Calc 115.4 Estimated GFR > 60 Random Glucose 104 Lactic Acid 1.2 Calcium 8.5 Total Bilirubin 1.7 H AST 24 ALT 22 Alkaline Phosphatase 75 Troponin I High Sens 48.2 H B-Natriuretic Peptide Total Protein 6.7 Albumin 3.7 Lipase 8 COVID-19 (ANABELLA) COVID-19 Clin Com 06/04/20 14:24 MCV MCH MCHC RDW Plt Count MPV Immature Gran % (Auto) Neut % (Auto) Lymph % (Auto) Sibley % (Auto) Eos % (Auto) Baso % (Auto) Lymph # (Auto) Sibley # (Auto) Eos # (Auto) Baso # (Auto) Abs Immat Gran (auto) Absolute Neuts (auto) Absolute Nucleated RBC Nucleated RBC % (auto) PT 14.9 H INR 1.3 H APTT 30.3 Anion Gap Estim Creat Clear Calc Estimated GFR Random Glucose Lactic Acid Calcium Total Bilirubin AST ALT Alkaline Phosphatase Troponin I High Sens B-Natriuretic Peptide Total Protein Albumin Lipase COVID-19 (ANABELLA) COVID-19 Clin Com Imaging Radiologist's Impressions: Impressions Abdomen/Pelvis CT 06/04/20 12:58 IMPRESSION: Right lateral small pleural effusions with bibasilar groundglass attenuation likely low-grade inflammation. Addition there is a right lower lobe anterior segment infiltrate. Mild cardiomegaly. Slight interval or dense area or enhancement in the gallbladder lumen with mild thickening and surrounding fluid suspicious for acalculus cholecystitis. Similar findings were seen on the previous exam 2019. Hepatic cyst is stable. Umbilical, supraumbilical and infraumbilical midline hernias containing fat. These are stable. Mild haziness in abdominal wall could be secondary to mild edema. There is minimal haziness in the parametrium bilaterally similar previous study. Bilateral sacroiliitis similar to previous study from 2019 Chest X-Ray 06/04/20 12:58 IMPRESSION: 1. Enlarged cardiac mediastinal silhouette with asymmetric opacity within the right mid to lower lung field, may represent asymmetric pulmonary edema/infiltrate/combination thereof versus layering effusion. Small left-sided pleural effusion is also noted. 2. Previously documented dense airspace opacity at left mid to lower lung field shows interval resolution. Assessment and Plan (1) Acute decompensated heart failure: Status: Acute (2) Acalculous cholecystitis: Status: Acute (3) Pneumonia: Qualifiers: Laterality: right Pneumonia type: due to unspecified organism Status: Acute (4) Elevated troponin: Status: Acute (5) Nonischemic cardiomyopathy: Status: Acute (6) Acute on chronic HFrEF (heart failure with reduced ejection fraction): Status: Acute 44 year-old woman with severe HFrEF/nonischemic cardiomyopathy, essential HTN, obstructive sleep apnea, morbid obesity, and tobacco abuse presenting with progressive dyspnea and edema along with 50-lb weight gain over the past 3 months, now with cough with minor hemoptysis, and RUQ pain. She's presenting in acute decompensated heart failure and may have acalculous cholecystitis. There is also a question of pneumonia. # ADHF, acute/chronic HFrEF, nonischemic cardiomyopathy # HTN urgency # troponin elevation - admit to [facility] and start butemanide infusion. will also give 1 dose of IV chlorthiazide. consult Cardiology; trend BNP; monitor BMP, Mg, and I/O - continue carvedilol, Entresto, and spironolactone; will also start Imdur - suspect troponin elevation is due to CHF and HTN, not ACS # acute acalculous cholecystitis - HIDA scan, surgery consult, IV piperacillin/tazobactam # possible pneumonia with hemoptysis - could all be due to pulmonary edema from CHF, but will continue piperacillin/tazobactam [also for cholecystitis] and add doxycycline; follow blood cultures and trend PCT. out of an abundance of caution, will check CT chest and also perform respiratory virus PCR panel. # JONI - CPAP as per home regimen # morbid obesity - weight loss will be encouraged # tobacco abuse - NRT # VTE ppx - SCDs; in the presence of hemoptysis, will hold off on heparinoids # code - FULL
[2020-06-04 17:44] LABS: C Reactive Protein 0.73 mg/dL (< or = 0.50)
--- NOTE | 2020-06-04 17:47 | PC.NURSE ---
Pt unable to tell this rn name or doses of home meds, has not filled any meds after 01/2020. Pt states she has extras at home...I sometimes take them . Dr. Brower aware.
[2020-06-04 17:54] LABS: Troponin-I High Sensitivity 43.8 ng/L (<3.5-17.0)
[2020-06-04 18:00] LABS: Lactate Dehydrogenase 307 U/L (122-220)
[2020-06-04 18:05] LABS: Ferritin 82 ng/mL (10-250)
[2020-06-04 18:09] LABS: Procalcitonin 0.03 ng/mL
[2020-06-04] MEDS: Bumetanide 25 MG in Container,Empty 0 ML IVCONT (18:43)
[2020-06-04] MEDS: Isosorbide Mononitrate 30 MG TAB.ER.24H PO (18:48)
[2020-06-04] MEDS: Chlorothiazide Sodium 500 MG VIAL IVPUSH (20:20)
[2020-06-04] MEDS: carvediloL 25 MG TABLET PO (20:23)
[2020-06-04] MEDS: Sacubitril/Valsartan 97/103 1 TAB TABLET PO (20:24)
[2020-06-04 20:27] LABS: Glucose Urine UA NEG (NEG); Leukocyte Esterase Urine NEG (NEG); Nitrite Urine NEG (NEG); PH 5.5 (5.0-8.0); Specific Gravity - Urine 1.015 (1.005-1.025); Urine Blood TRACE (NEG); Urine Ketones NEG (NEG); Urine Protein 2+ MG/DL (NEG-TRACE)
[2020-06-04 20:29] LABS: Appearance Urine CLEAR; Color Urine YELLOW
[2020-06-04 20:30] LABS: UPreg QC Valid YES; Urine Pregnancy NEGATIVE (NEGATIVE)
[2020-06-04 20:30] LABS: Adenovirus PCR Not Detected (Not Detect.); Bordetella parapertussis PCR Not Detected (Not Detect.); Bordetella pertussis PCR Not Detected (Not Detect.); Chlamydia pneumoniae PCR Not Detected (Not Detect.); Coronavirus 229E PCR Not Detected (Not Detect.); Coronavirus HKU1 PCR Not Detected (Not Detect.); Coronavirus NL63 PCR Not Detected (Not Detect.); Coronavirus OC43 PCR Not Detected (Not Detect.); Human metapneumovirus PCR Not Detected (Not Detect.); Influenza A PCR Not Detected (Not Detect.); Influenza B PCR Not Detected (Not Detect.); Mycoplasma pneumoniae PCR Not Detected (Not Detect.); Parainfluenza 1 PCR Not Detected (Not Detect.); Parainfluenza 2 PCR Not Detected (Not Detect.); Parainfluenza 3 PCR Not Detected (Not Detect.); Parainfluenza 4 PCR Not Detected (Not Detect.); RSV PCR Not Detected (Not Detect.); Rhino/Enterovirus PCR Not Detected (Not Detect.); SARS-CoV-2 PCR Not Detected (Not Detect.)
--- NOTE | 2020-06-04 20:33 | PC.NURSE ---
Pt ambulatory with steady gait to bathroom with this RN standby assist. Pt returned to stretcher without incidence. Pt urine sample obained and sent to lab. Pt with collection vial at bedside for resp culture. Pt aware to provide sample when possible. Meds infusing as appropriate per MAR. Pt offers no additional complaints/concerns. This RN appreciates fine crackles in R bases on lungs, bilateral diminished breath sounds. Pt with +2-+3 pitting edema BLE. Pt resting on stretcher in NAD. Stretcher low locked, rails raised, call sykes within reach.
[2020-06-04 20:36] LABS: Squamous Epithelial Cell Urine 1+ /LPF; WBC Urine 0 /HPF (0-4)
--- NOTE | 2020-06-04 22:07 | PC.NURSE ---
Report called to ROMAIN Chris
[2020-06-05] VITALS (8 sets, daily range): BP systolic 73–140; BP diastolic 54–65; PULSE 67–76; RESP 16–20; TEMP 36.2–36.9; O2SAT 94–98; BMI 51.0
[2020-06-05] MEDS: Piperacillin Sodium/Tazobactam 4.5 GM in 0.9 % Sodium Chloride 100 ML IV ×4 (02:53→21:03)
[2020-06-05] MEDS: Acetaminophen 325 MG TABLET 650 MG PO ×2 (06:25→18:45)
[2020-06-05 06:47] LABS: MANUAL DIFF FLAG NO
[2020-06-05 07:02] LABS: Basophils Percent Auto 0.2 % (0-2); Eosinophils Absolute Auto 0.1 X10*3/uL (0.0-0.4); Eosinophils Percent Auto 0.6 % (0-4); Hematocrit 45.7 % (37-47); Imm Gran Abs Auto 0.08 X10*3/uL (0.00-0.03); Imm Gran Pct Auto 0.5 % (0.0-0.4); Lymphocytes Absolute Auto 1.5 X10*3/uL (1.2-4.9); Lymphocytes Percent Auto 10.3 % (20-40); Mean Corpuscular HGB Conc 30.6 g/dl (31.0-35.0); Mean Corpuscular Hemoglobin 26.3 pg (27.0-33.0); Mean Corpuscular Volume 85.9 fL (80-98); Monocytes Absolute Auto 0.8 X10*3/uL (0.1-1.2); Monocytes Percent Auto 5.2 % (2-11); Neutrophils Absolute Auto 12.2 X10*3/uL (2.0-8.3); Neutrophils Percent Auto 83.2 % (45-73); Platelet Count 257 X10*3/uL (160-400); Red Blood Count 5.32 X10*6/uL (4.20-5.50); Red Cell Distribution Width 16.8 % (11.0-16.0); White Blood Count 14.7 X10*3/uL (4.8-10.8)
[2020-06-05 07:17] LABS: Anion Gap 18 (12-20); Blood Urea Nitrogen 16 mg/dL (9-16); Calcium 8.6 mg/dL (8.4-10.2); Carbon Dioxide 28 mmol/L (22-29); Chloride 99 mmol/L (96-108); Creatinine Clr Calc Pharmacy 83.1; Estimated Glomerular Filt Rate 56; Glucose Random 98 mg/dL (60-115); Magnesium 1.6 mg/dL (1.6-2.6); Potassium 3.6 mmol/L (3.3-5.1); Sodium 141 mmol/L (135-145)
[2020-06-05 07:34] LABS: B Type Natriuretic Peptide 2249 pg/mL (<100)
[2020-06-05] MEDS: Loratadine 10 MG TABLET PO (08:05)
--- NOTE | 2020-06-05 11:14 | P.CONCA_ITS ---
History of Present Illness History of Present Illness Date of Service: 06/05/20 Consult reason: congestive heart failure Chief complaint: ADHF, cholecystitis Narrative: This is a cardiology consultation regarding congestive heart failure. She is a patient of Dr. Yu. Has a history of obesity, hypertension, obstructive sleep apnea. She has been gaining weight recently with increasing shortness of breath and also orthopnea. Additionally, some cough with blood- tinged mucus in her sputum. She also felt as though her abdomen was bloated and she had some right upper quadrant discomfort. In the ER, she was quite hypertensive at 200/130 mm Hg. She was admitted for further care with a diagnosis of congestive heart failure. She is on a Bumex drip. She admits to being very compliant with her medications and takes Bumex b.i.d. and also takes metolazone once a week. Other medications for heart failure per guidelines. Review of Systems Review of Systems: Yes all other systems are reviewed and are negative Cardiovascular: Cardiovascular: Reports as per HPI, Reports no additional cardiovascular complaints, Denies acrocyanosis, Denies cool extremities, Denies painful fingertips, Denies chest pain, Denies chest pain at rest, Denies diaphoresis, Denies syncope, Denies irregular heart rhythm, Denies claudication, Denies leg edema, Denies lightheadedness, Denies palpitations and Reports dyspnea Respiratory: Respiratory: Reports dyspnea Neurologic: Denies syncope Endocrine: Endocrine: Denies palpitations [facility] Past Medical History Medical History (Updated 06/05/20 @ 11:18 by Ruben Patel MD) Chronic HFrEF (heart failure with reduced ejection fraction) Essential hypertension HTN (hypertension) Morbid obesity Nonischemic cardiomyopathy Obesity JONI (obstructive sleep apnea) Family History Family History Mother HTN (hypertension) Surgical History Surgical History Hx of section Social History Social History Household Members: Spouse and Children Housing: Apartment Do you presently have visiting nurse or other home services: No Alcohol intake: never Smoking Status: Current every day smoker Tobacco Type: Cigarette Smoked in Last 30 Days: Yes Patient Interested in Nicotine Replacement: Yes Patient Given Instructions on How to Stop Smoking: No Second Hand Smoke Exposure: Yes Use of substances other than those prescribed or required for medical reasons: No Currently Displaying Signs/Symptoms of Drug Intoxication Withdrawal: No Have you been hit, kicked, punched, or otherwise hurt by someone within the past year? If so, by whom?: No Do you feel safe in your current relationship?: Yes Is there a partner from a previous relationship who is making you feel unsafe now?: No Are you made to feel afraid or neglected: No Advance Directives: No Advance Directives Information Provided: Yes Advance Directives on File: No Do you have thoughts of harming others: None Do you have a plan to hurt others: No Plan Recently lost weight without trying: No Meds Allergies Allergy/AdvReac Type Severity Reaction Status Date / Time SEASONAL ALLERGIES Allergy Unknown ASTHMA, Uncoded 06/04/20 12:12 NASAL CONGESTION Active Medications: Current Medications Generic Name Dose Route Start Last Admin Trade Name Freq PRN Reason Stop Dose Admin Acetaminophen 650 mg 06/04/20 17:35 06/05/20 06:25 Acetaminophen 325 Mg Tablet PO 650 mg Q6H PRN Administration fever or pain Carvedilol 25 mg 06/04/20 21:00 06/04/20 20:23 Carvedilol 25 Mg Tablet PO 25 mg BID JOSTIN Administration Protocol Docusate Sodium 100 mg 06/04/20 17:35 Docusate Sodium 100 Mg Capsule PO BID PRN Constipation Doxycycline Hyclate 100 mg 06/04/20 20:00 06/05/20 08:05 Doxycycline Hyclate 100 Mg Tablet PO 100 mg Q12H JOSTIN Administration Bumetanide 25 mg/ IV 100 mls @ 2 mls/hr 06/04/20 17:45 06/04/20 18:43 Miscellaneous Supplies IVCONT 0.5 mg/hr .Q24H JOSTIN 2 mls/hr Administration 0.5 MG/HR Piperacillin Sod/Tazobactam 100 mls @ 200 mls/hr 06/04/20 21:00 06/05/20 0 9:11 Sod 4.5 gm/ Sodium Chloride IV Infused Q6H JOSTIN Infusion Isosorbide Mononitrate 30 mg 06/04/20 17:55 06/04/20 18:48 Isosorbide Mononitrate 30 Mg Tab.Er.24h PO 30 mg DAILY [facility] Administration Protocol Loratadine 10 mg 06/05/20 09:00 06/05/20 08:05 Loratadine 10 Mg Tablet PO 10 mg DAILY [facility] Administration Nicotine Polacrilex 4 mg 06/04/20 18:01 Nicotine Polacrilex 4 Mg Lozenge BUCCAL Q2H PRN Nicotine Cravings Ondansetron HCl 4 mg 06/04/20 17:35 Ondansetron Hcl 4 Mg/2 Ml Vial IVPUSH Q8H PRN Nausea and Vomiting Pharmacy Consult 1 each 06/04/20 16:43 Consult Rx Perform Med Rec MISCELLANE ONCE PRN Consult order Sacubitril/Valsartan 1 tab 06/04/20 18:00 06/04/20 20:24 Sacubitril/Valsartan 97/103 1 Tab Tablet PO 1 tab DAILY [facility] Administration Protocol Sodium Chloride 3 ml 06/05/20 00:00 06/05/20 08:16 0.9 % Sodium Chloride Flush 3 Ml Syringe IVFLUSH Not [facility] Spironolactone 50 mg 06/05/20 09:00 Spironolactone 25 Mg Tablet PO DAILY [facility] Protocol Home Medications Medication Instructions Recorded Confirmed Last Taken Type carvedilol 25 mg tablet 25 mg PO BID 02/11/20 06/04/20 Unknown History spironolactone 50 mg tablet 50 mg PO DAILY 02/11/20 06/04/20 Unknown History bumetanide 1 tab PO BID 06/04/20 06/04/20 Unknown History cetirizine 1 tab PO DAILY 06/04/20 06/04/20 Unknown History Physical Exam Vital Signs: Vital Signs: Last Vital Signs Temp 97.1 F 06/05/20 07:20 Pulse 71 06/05/20 07:20 Resp 18 06/05/20 07:20 BP 102/60 06/05/20 08:32 Pulse Ox 96 06/05/20 07:20 Body Mass Index 51.0 Const: General: cooperative, comfortable and no acute distress Orientation/consciousness: patient oriented x3 HENMT: Other: Unremarkable Neck: Neck: Yes normal visual inspection Chest: Chest palpation & inspection: normal inspection of the chest Resp: Auscultation: crackles (At lung bases) and no wheezes Cardio: Jugular venous distension: no JVD Palpation: normal PMI Heart sounds: S1 normal heart sound present, S2 normal heart sound present, no gallops, no murmurs and no rubs GI: Palpation (GI): Soft to palpation Back/Spine/Pelvis: Other: unremarkable Skin: General skin exam: no rashes or lesions noted Neuro: General: patient oriented x3 Extrem: General: Yes edema (1+) Psych: Mental Status: mental status grossly normal Results Labs and Meds Result diagrams: 06/05/20 06:05 06/05/20 06:05 Lab results: Laboratory Results - last 24 hr 06/04/20 06/04/20 06/04/20 13:20 13:33 13:33 WBC 14.2 H RBC 4.90 Hgb 12.8 Hct 41.5 MCV 84.7 MCH 26.1 L MCHC 30.8 L RDW 16.6 H Plt Count 253 MPV 10.5 Immature Gran % (Auto) 0.4 Neut % (Auto) 79.8 H Lymph % (Auto) 14.0 L [place] % (Auto) 4.9 Eos % (Auto) 0.7 Baso % (Auto) 0.2 Lymph # (Auto) 2.0 [place] # (Auto) 0.7 Eos # (Auto) 0.1 Baso # (Auto) 0.0 Abs Immat Gran (auto) 0.06 H Absolute Neuts (auto) 11.3 H Absolute Nucleated RBC 0.000 Nucleated RBC % (auto) 0.0 PT INR APTT Sodium Potassium Chloride Carbon Dioxide Anion Gap BUN Creatinine Estim Creat Clear Calc Estimated GFR Random Glucose Lactic Acid Calcium Magnesium Ferritin Total Bilirubin AST ALT Alkaline Phosphatase Lactate Dehydrogenase Troponin I High Sens C-Reactive Protein B-Natriuretic Peptide 2519 H Total Protein Albumin Lipase Procalcitonin Urine Color Urine Appearance Urine pH Ur Specific [place] Urine Protein Urine Glucose (UA) Urine Ketones Urine Blood Urine Nitrite Ur Leukocyte Esterase Urine RBC Urine WBC Ur Squamous Epith Cells Urine Bacteria Urine Test Respiratory Panel [place] Adenovirus (Rapid PCR) B.pert (TEM-PCR) B.parapertussis DNA PCR C. pneumoniae DNA (PCR) Coronavirus OC43 (PCR) Coronavirus HKU1 (PCR) Coronavirus 229E (PCR) COVID-19 (ANABELLA) Negative COVID-19 Clin Com See Note Coronavirus NL63 (PCR) Human Metapneumovir PCR Influenza A (RT-PCR) Influenza B (RT-PCR) M. pneumoniae (PCR) Parainfluenza 1 (PCR) Parainfluenza 2 (PCR) Parainfluenza 3 (PCR) Parainfluenza 4 (PCR) RSV (PCR) Entero/Rhino (PCR) SARS-CoV-2 RNA (RT-PCR) 06/04/20 06/04/20 06/04/20 13:33 13:33 13:33 WBC RBC Hgb Hct MCV MCH MCHC RDW Plt Count MPV Immature Gran % (Auto) Neut % (Auto) Lymph % (Auto) [place] % (Auto) Eos % (Auto) Baso % (Auto) Lymph # (Auto) [place] # (Auto) Eos # (Auto) Baso # (Auto) Abs Immat Gran (auto) Absolute Neuts (auto) Absolute Nucleated RBC Nucleated RBC % (auto) PT INR APTT Sodium 139 Potassium 4.4 Chloride 109 H Carbon Dioxide 19 L Anion Gap 15 BUN 17 H Creatinine 0.77 Estim Creat Clear Calc 115.4 Estimated GFR > 60 Random Glucose 104 Lactic Acid 1.2 Calcium 8.5 Magnesium Ferritin 82 Total Bilirubin 1.7 H AST 24 ALT 22 Alkaline Phosphatase 75 Lactate Dehydrogenase 307 H Troponin I High Sens 48.2 H C-Reactive Protein 0.73 H B-Natriuretic Peptide Total Protein 6.7 Albumin 3.7 Lipase 8 Procalcitonin Urine Color Urine Appearance Urine pH Ur Specific [place] Urine Protein Urine Glucose (UA) Urine Ketones Urine Blood Urine Nitrite Ur Leukocyte Esterase Urine RBC Urine WBC Ur Squamous Epith Cells Urine Bacteria Urine Test Respiratory Panel [place] Adenovirus (Rapid PCR) B.pert (TEM-PCR) B.parapertussis DNA PCR C. pneumoniae DNA (PCR) Coronavirus OC43 (PCR) Coronavirus HKU1 (PCR) Coronavirus 229E (PCR) COVID-19 (ANABELLA) COVID-19 Clin Com Coronavirus NL63 (PCR) Human Metapneumovir PCR Influenza A (RT-PCR) Influenza B (RT-PCR) M. pneumoniae (PCR) Parainfluenza 1 (PCR) Parainfluenza 2 (PCR) Parainfluenza 3 (PCR) Parainfluenza 4 (PCR) RSV (PCR) Entero/Rhino (PCR) SARS-CoV-2 RNA (RT-PCR) 06/04/20 06/04/20 06/04/20 13:33 14:24 16:53 WBC RBC Hgb Hct MCV MCH MCHC RDW Plt Count MPV Immature Gran % (Auto) Neut % (Auto) Lymph % (Auto) [place] % (Auto) Eos % (Auto) Baso % (Auto) Lymph # (Auto) [place] # (Auto) Eos # (Auto) Baso # (Auto) Abs Immat Gran (auto) Absolute Neuts (auto) Absolute Nucleated RBC Nucleated RBC % (auto) PT 14.9 H INR 1.3 H APTT 30.3 Sodium Potassium Chloride Carbon Dioxide Anion Gap BUN Creatinine Estim Creat Clear Calc Estimated GFR Random Glucose Lactic Acid Calcium Magnesium Ferritin Total Bilirubin AST ALT Alkaline Phosphatase Lactate Dehydrogenase Troponin I High Sens 43.8 H C-Reactive Protein B-Natriuretic Peptide Total Protein Albumin Lipase Procalcitonin 0.03 Urine Color Urine Appearance Urine pH Ur Specific [place] Urine Protein Urine Glucose (UA) Urine Ketones Urine Blood Urine Nitrite Ur Leukocyte Esterase Urine RBC Urine WBC Ur Squamous Epith Cells Urine Bacteria Urine Test Respiratory Panel [place] Adenovirus (Rapid PCR) B.pert (TEM-PCR) B.parapertussis DNA PCR C. pneumoniae DNA (PCR) Coronavirus OC43 (PCR) Coronavirus HKU1 (PCR) Coronavirus 229E (PCR) COVID-19 (ANABELLA) COVID-19 Clin Com Coronavirus NL63 (PCR) Human Metapneumovir PCR Influenza A (RT-PCR) Influenza B (RT-PCR) M. pneumoniae (PCR) Parainfluenza 1 (PCR) Parainfluenza 2 (PCR) Parainfluenza 3 (PCR) Parainfluenza 4 (PCR) RSV (PCR) Entero/Rhino (PCR) SARS-CoV-2 RNA (RT-PCR) 06/04/20 06/04/20 06/04/20 20:17 20:17 20:18 WBC RBC Hgb Hct MCV MCH MCHC RDW Plt Count MPV Immature Gran % (Auto) Neut % (Auto) Lymph % (Auto) [place] % (Auto) Eos % (Auto) Baso % (Auto) Lymph # (Auto) [place] # (Auto) Eos # (Auto) Baso # (Auto) Abs Immat Gran (auto) Absolute Neuts (auto) Absolute Nucleated RBC Nucleated RBC % (auto) PT INR APTT Sodium Potassium Chloride Carbon Dioxide Anion Gap BUN Creatinine Estim Creat Clear Calc Estimated GFR Random Glucose Lactic Acid Calcium Magnesium Ferritin Total Bilirubin AST ALT Alkaline Phosphatase Lactate Dehydrogenase Troponin I High Sens C-Reactive Protein B-Natriuretic Peptide Total Protein Albumin Lipase Procalcitonin Urine Color YELLOW Urine Appearance CLEAR Urine pH 5.5 Ur Specific [place] 1.015 Urine Protein 2+ H Urine Glucose (UA) NEG Urine Ketones NEG Urine Blood TRACE Urine Nitrite NEG Ur Leukocyte Esterase NEG Urine RBC 1-4 Urine WBC 0 Ur Squamous Epith Cells 1+ Urine Bacteria NONE Urine Test NEGATIVE Respiratory Panel [place] See Note Adenovirus (Rapid PCR) Not Detected B.pert (TEM-PCR) Not Detected B.parapertussis DNA PCR Not Detected C. pneumoniae DNA (PCR) Not Detected Coronavirus OC43 (PCR) Not Detected Coronavirus HKU1 (PCR) Not Detected Coronavirus 229E (PCR) Not Detected COVID-19 (ANABELLA) COVID-19 Clin Com Coronavirus NL63 (PCR) Not Detected Human Metapneumovir PCR Not Detected Influenza A (RT-PCR) Not Detected Influenza B (RT-PCR) Not Detected M. pneumoniae (PCR) Not Detected Parainfluenza 1 (PCR) Not Detected Parainfluenza 2 (PCR) Not Detected Parainfluenza 3 (PCR) Not Detected Parainfluenza 4 (PCR) Not Detected RSV (PCR) Not Detected Entero/Rhino (PCR) Not Detected SARS-CoV-2 RNA (RT-PCR) Not Detected 06/05/20 06/05/20 06/05/20 06:05 06:05 06:05 WBC 14.7 H RBC 5.32 Hgb 14.0 Hct 45.7 MCV 85.9 MCH 26.3 L MCHC 30.6 L RDW 16.8 H Plt Count 257 MPV 11.0 Immature Gran % (Auto) 0.5 H Neut % (Auto) 83.2 H Lymph % (Auto) 10.3 L [place] % (Auto) 5.2 Eos % (Auto) 0.6 Baso % (Auto) 0.2 Lymph # (Auto) 1.5 [place] # (Auto) 0.8 Eos # (Auto) 0.1 Baso # (Auto) 0.0 Abs Immat Gran (auto) 0.08 H Absolute Neuts (auto) 12.2 H Absolute Nucleated RBC 0.000 Nucleated RBC % (auto) 0.0 PT INR APTT Sodium 141 Potassium 3.6 Chloride 99 Carbon Dioxide 28 Anion Gap 18 BUN 16 Creatinine 1.07 Estim Creat Clear Calc 83.1 Estimated GFR 56 Random Glucose 98 Lactic Acid Calcium 8.6 Magnesium 1.6 Ferritin Total Bilirubin AST ALT Alkaline Phosphatase Lactate Dehydrogenase Troponin I High Sens C-Reactive Protein B-Natriuretic Peptide 2249 H Total Protein Albumin Lipase Procalcitonin Urine Color Urine Appearance Urine pH Ur Specific [place] Urine Protein Urine Glucose (UA) Urine Ketones Urine Blood Urine Nitrite Ur Leukocyte Esterase Urine RBC Urine WBC Ur Squamous Epith Cells Urine Bacteria Urine Test Respiratory Panel [place] Adenovirus (Rapid PCR) B.pert (TEM-PCR) B.parapertussis DNA PCR C. pneumoniae DNA (PCR) Coronavirus OC43 (PCR) Coronavirus HKU1 (PCR) Coronavirus 229E (PCR) COVID-19 (ANABELLA) COVID-19 Clin Com Coronavirus NL63 (PCR) Human Metapneumovir PCR Influenza A (RT-PCR) Influenza B (RT-PCR) M. pneumoniae (PCR) Parainfluenza 1 (PCR) Parainfluenza 2 (PCR) Parainfluenza 3 (PCR) Parainfluenza 4 (PCR) RSV (PCR) Entero/Rhino (PCR) SARS-CoV-2 RNA (RT-PCR) ECG Attestation: I personally reviewed and interpreted this ECG as follows: Interpretation: EKG with sinus rhythm at 97/Min; changes for left ventricular hypertrophy and a left atrial enlargement. QTc slightly prolonged Imaging Radiologist's impression: Impressions Abdomen/Pelvis CT 06/04/20 12:58 IMPRESSION: Right lateral small pleural effusions with bibasilar groundglass attenuation likely low-grade inflammation. Addition there is a right lower lobe anterior segment infiltrate. Mild cardiomegaly. Slight interval or dense area or enhancement in the gallbladder lumen with mild thickening and surrounding fluid suspicious for acalculus cholecystitis. Similar findings were seen on the previous exam 2019. Hepatic cyst is stable. Umbilical, supraumbilical and infraumbilical midline hernias containing fat. These are stable. Mild haziness in abdominal wall could be secondary to mild edema. There is minimal haziness in the parametrium bilaterally similar previous study. Bilateral sacroiliitis similar to previous study from 2019 Chest X-Ray 06/04/20 12:58 IMPRESSION: 1. Enlarged cardiac mediastinal silhouette with asymmetric opacity within the right mid to lower lung field, may represent asymmetric pulmonary edema/infiltrate/combination thereof versus layering effusion. Small left-sided pleural effusion is also noted. 2. Previously documented dense airspace opacity at left mid to lower lung field shows interval resolution. Chest CT 06/04/20 16:39 IMPRESSION: Cardiomegaly and increased interstitial markings with bilateral pleural effusions. The most likely diagnosis is CHF with interstitial edema. Associated focal infiltrates in the right middle lobe and right lower lobe may be infectious. Nonspecific mediastinal nodes most likely reactive. Assessment and Plan (1) Acute on chronic HFrEF (heart failure with reduced ejection fraction): Status: Acute (2) Essential hypertension: Status: Acute (3) Morbid obesity: Status: Acute (4) JONI (obstructive sleep apnea): Status: Acute Last echocardiogram from January 2020 with LVEF 25-30%. Agree with IV Bumex drip. Continue Coreg, Entresto, spironolactone. Echocardiogram tomorrow. We will follow. Cardiac catheterization from 2019-no significant coronary disease. Pertinent labs including troponins, cardiac BNP reviewed.
[2020-06-05] MEDS: Sacubitril/Valsartan 97/103 1 TAB TABLET PO (12:02)
[2020-06-05] MEDS: carvediloL 25 MG TABLET PO ×2 (12:02→21:02)
[2020-06-05] MEDS: Spironolactone 25 MG TABLET 50 MG PO (12:02)
--- NOTE | 2020-06-05 14:47 | PM.CNGS ---
History of Present Illness Consult details Consult date: 06/05/20 Reason for consult: abdominal pain Requesting physician: Yoselin Brower Narrative: 44 yo female with h/o Chronic HFrEF, Cardiomyopathy, HTN and morbid obesity presents for multiple complaints including RUQ pain. She states that she has been having this pain for about three weeks but worsened yesterday. She also admits to worsening cough and chest discomfort that also started yesterday to acutely worsen. She admits to coughing with blood tinged sputum. She states that most of her ABD discomfort in under her Right lower ribs and epigastic area. Not exacerbated by anything nor does it radiate. She denies worsening pain with food. She states she does not really have belly pain . She reports nausea and dry heaves, no dairrhea. A CT performed in the ED suggested possible acalculolus cholecystitis and patient had WBC of 14K. Surgery was consulted for further evaluation. She also had a elevated Troponin of 43.8 Review of Systems Review of Systems: Yes all other systems are reviewed and are negative Cardiovascular: Cardiovascular: Reports Epigastric Pain Respiratory: Respiratory: Reports cough (with blood tinged sputum) Gastrointestinal: Gastrointestinal: Reports as per [facility] Past Medical History Medical History (Updated 06/05/20 @ 15:01 by LISETTE Hector) Chronic HFrEF (heart failure with reduced ejection fraction) Essential hypertension HTN (hypertension) Morbid obesity Nonischemic cardiomyopathy Obesity JONI (obstructive sleep apnea) Family History Family History Mother HTN (hypertension) Surgical History Surgical History Hx of section Social History Social History Household Members: Spouse and Children Housing: Apartment Do you presently have visiting nurse or other home services: No Alcohol intake: never Smoking Status: Current every day smoker Tobacco Type: Cigarette Smoked in Last 30 Days: Yes Patient Interested in Nicotine Replacement: Yes Patient Given Instructions on How to Stop Smoking: No Second Hand Smoke Exposure: Yes Use of substances other than those prescribed or required for medical reasons: No Currently Displaying Signs/Symptoms of Drug Intoxication Withdrawal: No Have you been hit, kicked, punched, or otherwise hurt by someone within the past year? If so, by whom?: No Do you feel safe in your current relationship?: Yes Is there a partner from a previous relationship who is making you feel unsafe now?: No Are you made to feel afraid or neglected: No Advance Directives: No Advance Directives Information Provided: Yes Advance Directives on File: No Do you have thoughts of harming others: None Do you have a plan to hurt others: No Plan Recently lost weight without trying: No Meds Allergies Allergy/AdvReac Type Severity Reaction Status Date / Time SEASONAL ALLERGIES Allergy Unknown ASTHMA, Uncoded 06/04/20 12:12 NASAL CONGESTION Active Medications: Current Medications Generic Name Dose Route Start Last Admin Trade Name Freq PRN Reason Stop Dose Admin Acetaminophen 650 mg 06/04/20 17:35 06/05/20 06:25 Acetaminophen 325 Mg Tablet PO 650 mg Q6H PRN Administration fever or pain Carvedilol 25 mg 06/04/20 21:00 06/05/20 12:02 Carvedilol 25 Mg Tablet PO 25 mg BID JOSTIN Administration Protocol Docusate Sodium 100 mg 06/04/20 17:35 Docusate Sodium 100 Mg Capsule PO BID PRN Constipation Doxycycline Hyclate 100 mg 06/04/20 20:00 06/05/20 08:05 Doxycycline Hyclate 100 Mg Tablet PO 100 mg Q12H JOSTIN Administration Bumetanide 25 mg/ IV 100 mls @ 2 mls/hr 06/04/20 17:45 06/04/20 18:43 Miscellaneous Supplies IVCONT 0.5 mg/hr .Q24H JOSTIN 2 mls/hr Administration 0.5 MG/HR Piperacillin Sod/Tazobactam 100 mls @ 200 mls/hr 06/04/20 21:00 06/05/20 09:11 Sod 4.5 gm/ Sodium Chloride IV Infused Q6H JOSTIN Infusion Loratadine 10 mg 06/05/20 09:00 06/05/20 08:05 Loratadine 10 Mg Tablet PO 10 mg DAILY JOSTIN Administration Nicotine Polacrilex 4 mg 06/04/20 18:01 Nicotine Polacrilex 4 Mg Lozenge BUCCAL Q2H PRN Nicotine Cravings Ondansetron HCl 4 mg 06/04/20 17:35 Ondansetron Hcl 4 Mg/2 Ml Vial IVPUSH Q8H PRN Nausea and Vomiting Pharmacy Consult 1 each 06/04/20 16:43 Consult Rx Perform Med Rec MISCELLANE ONCE PRN Consult order Sacubitril/Valsartan 1 tab 06/04/20 18:00 06/05/20 12:02 Sacubitril/Valsartan 97/103 1 Tab Tablet PO 1 tab DAILY [facility] Administration Protocol Sodium Chloride 3 ml 06/05/20 00:00 06/05/20 08:16 0.9 % Sodium Chloride Flush 3 Ml Syringe IVFLUSH Not Given QSHIFT [facility] Spironolactone 50 mg 06/05/20 09:00 06/05/20 12:02 Spironolactone 25 Mg Tablet PO 50 mg DAILY [facility] Administration Protocol Home Medications Medication Instructions Recorded Confirmed Last Taken Type carvedilol 25 mg tablet 25 mg PO BID 02/11/20 06/04/20 Unknown History spironolactone 50 mg tablet 50 mg PO DAILY 02/11/20 06/04/20 Unknown History bumetanide 1 tab PO BID 06/04/20 06/04/20 Unknown History cetirizine 1 tab PO DAILY 06/04/20 06/04/20 Unknown History Physical Exam Vital Signs: Vital Signs: Last Vital Signs Temp 97.3 F 06/05/20 11:45 Pulse 69 06/05/20 11:45 Resp 18 06/05/20 11:45 BP 109/62 06/05/20 11:45 Pulse Ox 98 06/05/20 11:45 Body Mass Index 51.0 Const: General: cooperative and no acute distress Nutritional Appearance: obese Resp: Effort & Inspection: normal respiratory effort and able to speak in complete sentences Auscultation: clear to auscultation bilaterally Cardio: Jugular venous distension: no JVD Rhythm: regular rhythm Heart sounds: S1 normal heart sound present and S2 normal heart sound present GI: Inspection: Yes normal to inspection and Yes obesity Palpation (GI): Soft to palpation Auscultation: normal bowel sounds Skin: General skin exam: no rashes or lesions noted Extrem: General: Yes edema (Bilateral LE) Results Labs Result diagrams: 06/05/20 06:05 06/05/20 06:05 Labs: Abnormal lab results 06/04/20 06/04/20 06/04/20 Range/Units 13:33 16:53 20:17 WBC (4.8-10.8) X10*3/uL MCH (27.0-33.0) pg MCHC (31.0-35.0) g/dl RDW (11.0-16.0) % Immature Gran % (Auto) (0.0-0.4) % Neut % (Auto) (45-73) % Lymph % (Auto) (20-40) % Abs Immat Gran (auto) (0.00-0.03) X10*3/uL Absolute Neuts (auto) (2.0-8.3) X10*3/uL Lactate Dehydrogenase 307 H (122-220) U/L Troponin I High Sens 43.8 H (<3.5-17.0) ng/L C-Reactive Protein 0.73 H (< or = 0.50) mg/dL B-Natriuretic Peptide (<100) pg/mL Urine Protein 2+ H (NEG-TRACE) MG/DL 06/05/20 06/05/20 Range/Units 06:05 06:05 WBC 14.7 H (4.8-10.8) X10*3/uL MCH 26.3 L (27.0-33.0) pg MCHC 30.6 L (31.0-35.0) g/dl RDW 16.8 H (11.0-16.0) % Immature Gran % (Auto) 0.5 H (0.0-0.4) % Neut % (Auto) 83.2 H (45-73) % Lymph % (Auto) 10.3 L (20-40) % Abs Immat Gran (auto) 0.08 H (0.00-0.03) X10*3/uL Absolute Neuts (auto) 12.2 H (2.0-8.3) X10*3/uL Lactate Dehydrogenase (122-220) U/L Troponin I High Sens (<3.5-17.0) ng/L C-Reactive Protein (< or = 0.50) mg/dL B-Natriuretic Peptide 2249 H (<100) pg/mL Urine Protein (NEG-TRACE) MG/DL Short CBC 06/05/20 Range/Units 06:05 WBC 14.7 H (4.8-10.8) X10*3/uL Hgb 14.0 (12.0-16.0) g/dl Hct 45.7 (37-47) % Plt Count 257 (160-400) X10*3/uL BMP 06/05/20 06:05 Sodium 141 Potassium 3.6 Chloride 99 Carbon Dioxide 28 BUN 16 Creatinine 1.07 Calcium 8.6 Urine 06/04/20 06/04/20 Range/Units 20:17 20:17 Urine Color YELLOW Urine Appearance CLEAR Urine pH 5.5 (5.0-8.0) Ur Specific [place] 1.015 (1.005-1.025) Urine Protein 2+ H (NEG-TRACE) MG/DL Urine Glucose (UA) NEG (NEG) MG/DL Urine Test NEGATIVE (NEGATIVE) All other labs normal. Assessment and Plan (1) Acalculous cholecystitis: Problem details: 44 yo female with multiple complaints including RUQ pain with CT findings of possible acalculous cholecystitis with WBC of 14K. Status: Acute She will need HIDA scan to assess GB for conformation of cholecystitis. Continue ABX Pain mgmt She is currently not a surgical patient as she had multiple other possible etiologies that need further work-up. Surgery will follow along with patient while admitted Cardiac and Pulmonary issues being work-up by medicine service
--- NOTE | 2020-06-05 15:27 | P.PNIM_ITS ---
Subjective Subjective Date of Service: 06/05/20 Interval History: BP normalized I/O poorly recorded less dyspneic RUQ pain improved Physical Exam Vital Signs: Vital Signs: Last Vital Signs Temp 97.3 F 06/05/20 11:45 Pulse 69 06/05/20 11:45 Resp 18 06/05/20 11:45 BP 109/62 06/05/20 11:45 Pulse Ox 98 06/05/20 11:45 Body Mass Index 51.0 Gen: in no acute distress HEENT: sclera anicteric, moist mucus membranes Neck: supple Lungs: diminished at bases bilaterally Heart: regular rate and rhythm, no murmurs Abd: soft, obese, mild RUQ tenderness without [place] sign Ext: 2+ BLE edema Skin: warm/well-perfused Neuro: alert and oriented x3, no focal findings Psych: appropriate affect Objective Data Current Medications Generic Name Dose Route Start Last Admin Trade Name Freq PRN Reason Stop Dose Admin Acetaminophen 650 mg 06/04/20 17:35 06/05/20 06:25 Acetaminophen 325 Mg Tablet PO 650 mg Q6H PRN Administration fever or pain Carvedilol 25 mg 06/04/20 21:00 06/05/20 12:02 Carvedilol 25 Mg Tablet PO 25 mg BID JOSTIN Administration Protocol Docusate Sodium 100 mg 06/04/20 17:35 Docusate Sodium 100 Mg Capsule PO BID PRN Constipation Doxycycline Hyclate 100 mg 06/04/20 20:00 06/05/20 08:05 Doxycycline Hyclate 100 Mg Tablet PO 100 mg Q12H JOSTIN Administration Bumetanide 25 mg/ IV 100 mls @ 2 mls/hr 06/04/20 17:45 06/04/20 18:43 Miscellaneous Supplies IVCONT 0.5 mg/hr .Q24H JOSTIN 2 mls/hr Administration 0.5 MG/HR Piperacillin Sod/Tazobactam 100 mls @ 200 mls/hr 06/04/20 21:00 06/05/20 09:11 Sod 4.5 gm/ Sodium Chloride IV Infused Q6H JOSTIN Infusion Loratadine 10 mg 06/05/20 09:00 06/05/20 08:05 Loratadine 10 Mg Tablet PO 10 mg DAILY [facility] Administration Nicotine Polacrilex 4 mg 06/04/20 18:01 Nicotine Polacrilex 4 Mg Lozenge BUCCAL Q2H PRN Nicotine Cravings Ondansetron HCl 4 mg 06/04/20 17:35 Ondansetron Hcl 4 Mg/2 Ml Vial IVPUSH Q8H PRN Nausea and Vomiting Pharmacy Consult 1 each 06/04/20 16:43 Consult Rx Perform Med Rec MISCELLANE ONCE PRN Consult order Sacubitril/Valsartan 1 tab 06/04/20 18:00 06/05/20 12:02 Sacubitril/Valsartan 97/103 1 Tab Tablet PO 1 tab DAILY [facility]OST[facility] Administration Protocol Sodium Chloride 3 ml 06/05/20 00:00 06/05/20 08:16 0.9 % Sodium Chloride Flush 3 Ml Syringe IVFLUSH Not Given QSHIFT [facility] Spironolactone 50 mg 06/05/20 09:00 06/05/20 12:02 Spironolactone 25 Mg Tablet PO 50 mg DAILY [facility]OSTIN Administration Protocol Labs CBC & Chem 7: 06/05/20 06:05 06/05/20 06:05 Assessment and Plan (1) Acute decompensated heart failure: Status: Acute (2) Pneumonia: Status: Acute (3) Acalculous cholecystitis: Status: Acute Assessment and Plan: hospital d#2 44yo F with HFrEF/NICM, HTN, JONI, obesity presenting with weight gain,edema, dyspnea, cough, and RUQ pain admitted for ADHF, possible acalculous cholecystitis, possible pneumonia # ADHF, acute/chronic HFrEF, nonischemic cardiomyopathy - continue bumetanide infusion; got 1 dose IV chlorthiazide. TTE tomorrow. trend BNP; monitor BMP, Mg, I/O - continue carvedilol, Entresto, spironolactone # acute acalculous cholecystitis - surgery following, HIDA scan pending, IV piperacillin/tazobactam d#2, not currently a surgical candidate # possible pneumonia with hemoptysis - pip/miranda d#2, doxy d#2; follow blood cultures and trend PCT; however, ultim ately, could be attritubatle to pulmonary edema from CHF # JONI - CPAP as per home regimen # morbid obesity - weight loss # tobacco abuse - NRT # VTE ppx - SCDs; in the presence of hemoptysis, will hold off on heparinoids
--- NOTE | 2020-06-05 15:35 | MHC.CM.PN ---
CM ATTEMPTED TO SEE PT WHO WAS OFF UNIT. CM TO REVISIT
[2020-06-05] MEDS: 0.9 % Sodium Chloride Flush 3 ML SYRINGE IVFLUSH (16:09)
[2020-06-05] MEDS: Bumetanide 25 MG in Container,Empty 0 ML IVCONT (18:38)
[2020-06-06] VITALS (7 sets, daily range): BP systolic 84–163; BP diastolic 50–81; PULSE 68–82; RESP 18; TEMP 36.4–36.7; O2SAT 98–100; BMI 49.7
[2020-06-06] MEDS: Piperacillin Sodium/Tazobactam 4.5 GM in 0.9 % Sodium Chloride 100 ML IV (02:53)
[2020-06-06] MEDS: Acetaminophen 325 MG TABLET 650 MG PO (03:40)
--- NOTE | 2020-06-06 05:44 | PC.NURSE ---
0515 bp-88/54 p-68.pt asymptomatic. notified.ordered to hold bumex drip.
[2020-06-06 06:20] LABS: MANUAL DIFF FLAG NO
[2020-06-06 06:54] LABS: B Type Natriuretic Peptide 221 pg/mL (<100)
[2020-06-06 07:09] LABS: Basophils Percent Auto 0.2 % (0-2); Eosinophils Absolute Auto 0.2 X10*3/uL (0.0-0.4); Eosinophils Percent Auto 1.4 % (0-4); Hemoglobin 14.4 g/dl (12.0-16.0); Imm Gran Abs Auto 0.13 X10*3/uL (0.00-0.03); Imm Gran Pct Auto 0.9 % (0.0-0.4); Lymphocytes Absolute Auto 1.8 X10*3/uL (1.2-4.9); Lymphocytes Percent Auto 11.8 % (20-40); Mean Corpuscular HGB Conc 30.6 g/dl (31.0-35.0); Mean Corpuscular Hemoglobin 25.9 pg (27.0-33.0); Mean Corpuscular Volume 84.7 fL (80-98); Mean Platelet Volume 10.7 fL (9.4-12.3); Monocytes Percent Auto 6.8 % (2-11); Neutrophils Percent Auto 78.9 % (45-73); Platelet Count 249 X10*3/uL (160-400); Red Blood Count 5.55 X10*6/uL (4.20-5.50); Red Cell Distribution Width 16.9 % (11.0-16.0); White Blood Count 15.2 X10*3/uL (4.8-10.8)
[2020-06-06 07:18] LABS: Procalcitonin 0.06 ng/mL
[2020-06-06 07:30] LABS: Anion Gap 17 (12-20); Blood Urea Nitrogen 25 mg/dL (9-16); Calcium 7.8 mg/dL (8.4-10.2); Carbon Dioxide 29 mmol/L (22-29); Chloride 97 mmol/L (96-108); Creatinine Clr Calc Pharmacy 76.1; Estimated Glomerular Filt Rate 51; Glucose Random 122 mg/dL (60-115); Magnesium 1.4 mg/dL (1.6-2.6); Potassium 3.3 mmol/L (3.3-5.1); Sodium 140 mmol/L (135-145)
--- NOTE | 2020-06-06 07:30 | CA_ITS ---
Transthoracic Echocardiogram Patient (Last, First, Middle): Brook Gonzales, Gender: Female Date of : 1975 Age: 44 Procedure Date: 06/06/2020 Procedure Type: Transthoracic Echocardiogram Location: [facility] [place] Height: 154.94 cm Weight: 119.3 kg BSA: 2.12 m2 Heart Rate: bpm BP: 88 / 54 mmHg Medical Administrative Assistant: Referring MD: Yoselin Brower MD Symptoms: HFrEF Study Quality: Good ECG Rhythm: Sinus Conclusions: - The left ventricular systolic function is severely decreased. The visually estimated ejection fraction is between 15-20%. - There is severe global hypokinesis. The basal inferior segment is akinetic. - There is mild mitral valve regurgitation. Findings Left Ventricle Normal left ventricular cavity size. There is moderately increased left ventricular wall thickness. The left ventricular systolic function is severely decreased. The visually estimated ejection fraction is between 15 20%. There is severe global hypokinesis. E/E prime ratio is between 8 and 15 consistent with indeterminate filling pressures. Evidence suggests grade I (mild) diastolic dysfunction. Wall Motion Rest Echo Findings The basal inferior segment is akinetic. Right Ventricle Mildly increased right ventricular cavity size. There is normal right ventricular systolic function. Atria Both atria are normal in size. Aortic Valve There is a normal trileaflet aortic valve. There is no aortic valve stenosis. There is no aortic valve regurgitation. Mitral Valve There is mild anterior and posterior mitral leaflet thickening. The posterior mitral leaflet has restricted mobility. There is mild mitral annular calcification. There is mild mitral valve regurgitation. There is no mitral valve stenosis. Pulmonic Valve The pulmonic valve was not well visualized. Tricuspid Valve Normal tricuspid valve structure. There is trace tricuspid valve regurgitation. The pulmonary artery systolic pressure is normal. Great Vessels The aortic annulus, sinuses of valsalva, and asc aorta are normal in size. Venous The inferior vena cava is normal in size and collapses greater than 50% with inspiration. Pericardium/Pleural There is a trivial pericardial effusion. Prior Study Comparison No significant change compared to prior study dated: 02/04/2020. Measurements 2D Linear Measurements IVSd: 1.48 0.6-0.9/0.6-1.0 cm LVIDd: 5.68 3.9-5.3/4.2-5.9 cm LVIDd Index: 2.68 2.4-3.2/2.2-3.1 cm/m2 LVIDs: 4.96 2.0-3.6 cm LVPWd: 1.46 0.7-1.1 cm Ao Root: 3.10 2.1-3.5 cm LA Diam: 4.20 2.7-3.8/3.0-4.0 cm LAIDs Index: 1.98 1.5-2.3 cm/m2 LV Mass: 475.54 67-162/88-224 g LV Mass Index: 224.31 43-95/49-115 g/m2 LVOT Diam: 2.10 3.0+(-)1.3 cm 2D Systolic Function EF 4C: 25.00 >55% EF 2C: 14.60 >55% EF BiP: 19.60 >55% Mitral Valve MV Pk E: 0.52 MV PK A: 0.58 MV Decel Time: 188.00 E/A: 0.90 E'Lateral: 4.79 E'Medial: 3.15 E/E' Med: 16.50 E/E' Lat: 10.90 PHT: 55.00 MVA PHT: 4.00 Decel Day: 2.77 Aortic Valve AoV Pk Gennaro: 1.15 AoV Mn Gennaro: 0.73 AoV VTI: 0.18 AoV Pk Grad: 5.00 Aov Mn Grad: 3.00 MICHELLE Cont.VTI: 2.08 LVOT LVOT Pk Gennaro: 0.66 LVOT Mn Gennaro: 0.46 LVOT VTI: 0.11 LVOT Pk Grad: 2.00 LVOT Mn Grad: 1.00 LVOT Diam: 2.10 LVOT Area: 3.46 Diastolic Function MV Pk E: 0.52 MV Pk A: 0.58 E/A: 0.90 E'Medial: 3.15 E/E' Med: 16.50 E' Laterial: 4.79 E/E' Lat: 10.90 Tricuspid Valve TR Pk Gennaro: 2.45 TR Pk Grad: 24.00 RA Press: 3.00 RVSP: 27.00 Great Vessels Aorta Ao Root-2D: 3.10 2.0-3.7 cm Ao Asc: 3.20 2.1-3.4 cm Pulmonary Valve PV Pk Gennaro: 0.81 Peak PV Grad: 3.00 Updated in Other Vendor System with Status of Final Ruben Patel MD electronically signed on 06/06/2020 12:44:40 PM with status of Final
[2020-06-06] MEDS: Loratadine 10 MG TABLET PO (07:58)
[2020-06-06] MEDS: Magnesium Sulfate/H2O 2 GM/50 ML PIGGYBACK IV (07:58)
[2020-06-06] MEDS: 0.9 % Sodium Chloride Flush 3 ML SYRINGE IVFLUSH ×3 (07:58→20:28)
--- NOTE | 2020-06-06 08:07 | P.PNGS_ITS ---
Subjective Subjective Date of Service: 06/06/20 Interval history: says she has pain on the right chest and ribs c/o coughing with phlegm Physical Exam Vital Signs: Vital Signs: Last Vital Signs Temp 95.7 F L 06/06/20 07:35 Pulse 78 06/06/20 07:35 Resp 18 06/06/20 07:35 BP 101/59 L 06/06/20 07:35 Pulse Ox 98 06/06/20 07:35 Body Mass Index 49.7 Laboratory Results - last 24 hr 06/04/20 06/06/20 06/06/20 20:18 05:29 05:29 WBC 15.2 H RBC 5.55 H Hgb 14.4 Hct 47.0 MCV 84.7 MCH 25.9 L MCHC 30.6 L RDW 16.9 H Plt Count 249 MPV 10.7 Immature Gran % (A uto) 0.9 H Neut % (Auto) 78.9 H Lymph % (Auto) 11.8 L [place] % (Auto) 6.8 Eos % (Auto) 1.4 Baso % (Auto) 0.2 Lymph # (Auto) 1.8 [place] # (Auto) 1.0 Eos # (Auto) 0.2 Baso # (Auto) 0.0 Abs Immat Gran (au to) 0.13 H Absolute Neuts (au to) 12.0 H Absolute Nucleated RBC 0.000 Nucleated RBC % (a uto) 0.0 Sodium 140 Potassium 3.3 Chloride 97 Carbon Dioxide 29 Anion Gap 17 BUN 25 H D Creatinine 1.15 Estim Creat Clear Calc 76.1 Estimated GFR 51 Random Glucose 122 H Calcium 7.8 L D Magnesium 1.4 L* B-Natriuretic Pept [place] Procalcitonin Respiratory Panel [place] See Note Adenovirus (Rapid PCR) Not Detected B.pert (TEM-PCR) Not Detected B.parapertussis DN A PCR Not Detected C. pneumoniae DNA (PCR) Not Detected Coronavirus OC43 ( PCR) Not Detected Coronavirus HKU1 ( PCR) Not Detected Coronavirus 229E ( PCR) Not Detected Coronavirus NL63 ( PCR) Not Detected Human Metapneumovi r PCR Not Detected Influenza A (RT-PC R) Not Detected Influenza B (RT-PC R) Not Detected M. pneumoniae (PCR ) Not Detected Parainfluenza 1 (P CR) Not Detected Parainfluenza 2 (P CR) Not Detected Parainfluenza 3 (P CR) Not Detected Parainfluenza 4 (P CR) Not Detected RSV (PCR) Not Detected Entero/Rhino (PCR) Not Detected SARS-CoV-2 RNA (RT -PCR) Not Detected 06/06/20 06/06/20 05:29 05:29 WBC RBC Hgb Hct MCV MCH MCHC RDW Plt Count MPV Immature Gran % (A uto) Neut % (Auto) Lymph % (Auto) [place] % (Auto) Eos % (Auto) Baso % (Auto) Lymph # (Auto) [place] # (Auto) Eos # (Auto) Baso # (Auto) Abs Immat Gran (au to) Absolute Neuts (au to) Absolute Nucleated RBC Nucleated RBC % (a uto) Sodium Potassium Chloride Carbon Dioxide Anion Gap BUN Creatinine Estim Creat Clear Calc Estimated GFR Random Glucose Calcium Magnesium B-Natriuretic Pept [place] 221 H Procalcitonin 0.06 Respiratory Panel [place] Adenovirus (Rapid PCR) B.pert (TEM-PCR) B.parapertussis DN A PCR C. pneumoniae DNA (PCR) Coronavirus OC43 ( PCR) Coronavirus HKU1 ( PCR) Coronavirus 229E ( PCR) Coronavirus NL63 ( PCR) Human Metapneumovi r PCR Influenza A (RT-PC R) Influenza B (RT-PC R) M. pneumoniae (PCR ) Parainfluenza 1 (P CR) Parainfluenza 2 (P CR) Parainfluenza 3 (P CR) Parainfluenza 4 (P CR) RSV (PCR) Entero/Rhino (PCR) SARS-CoV-2 RNA (RT -PCR) Const: Other: Appears morbidly obese General: no acute distress Resp: Effort & Inspection: normal respiratory effort Cardio: Rhythm: regular rhythm GI: Other: Soft, obese, no guarding or rebound Progress Note: A&P Assessment and plan (1) Acute decompensated heart failure: Status: Acute Assessment and Plan: HIDA scan does not show cholecystitis Has acute medical issues Management as per the hospitalist service No surgical issues at this Fall Risk Details Current Medications: Current Medications Generic Name Dose Route Start Last Admin Trade Name Freq PRN Reason Stop Dose Admin Acetaminophen 650 mg 06/04/20 17:35 06/06/20 03:40 Acetaminophen 325 Mg Tablet PO 650 mg Q6H PRN Administration fever or pain Carvedilol 25 mg 06/04/20 21:00 06/05/20 21:02 Carvedilol 25 Mg Tablet PO 25 mg BID JOSTIN Administration Protocol Docusate Sodium 100 mg 06/04/20 17:35 Docusate Sodium 100 Mg Capsule PO BID PRN Constipation Bumetanide 25 mg/ IV 100 mls @ 2 mls/hr 06/04/20 17:45 06/06/20 07:27 Miscellaneous Supplies IVCONT 0 mg/hr .Q24H JOSTIN 0 mls/hr Infusion 0.5 MG/HR Magnesium Sulfate 2 gm in 50 mls @ 25 mls/hr 06/06/20 07:36 IV 06/06/20 09:35 ONCE ONE Loratadine 10 mg 06/05/20 09:00 06/05/20 08:05 Loratadine 10 Mg Tablet PO 10 mg DAILY [facility]OSTIN Administration Nicotine Polacrilex 4 mg 06/04/20 18:01 06/06/20 03:46 Nicotine Polacrilex 4 Mg Lozenge BUCCAL 4 mg Q2H PRN Administration Nicotine Cravings Ondansetron HCl 4 mg 06/04/20 17:35 Ondansetron Hcl 4 Mg/2 Ml Vial IVPUSH Q8H PRN Nausea and Vomiting Pharmacy Consult 1 each 06/04/20 16:43 Consult Rx Perform Med Rec MISCELLANE ONCE PRN Consult order Sacubitril/Valsartan 1 tab 06/04/20 18:00 06/05/20 12:02 Sacubitril/Valsartan 97/103 1 Tab Tablet PO 1 tab DAILY [facility] Administration Protocol Sodium Chloride 3 ml 06/05/20 00:00 06/05/20 21:03 0.9 % Sodium Chloride Flush 3 Ml Syringe IVFLUSH Not Given QSHIFT [facility] Spironolactone 50 mg 06/05/20 09:00 06/05/20 12:02 Spironolactone 25 Mg Tablet PO 50 mg DAILY [facility]OSTIN Administration Protocol Time Spent With Patient Time: Total time spent is greater than 50% in coordination of care (as documented) at patient's floor/unit and/or counseling patient: Time with patient: 15 - 24 minutes
--- NOTE | 2020-06-06 10:08 | P.PNCA_ITS ---
Subjective Subjective Date of Service: 06/06/20 Interval history: She states that she still has some discomfort in the right upper quadrant. Shortness of breath is at baseline. Review of Systems Review of Systems Yes all other systems are reviewed and are negative Cardiovascular: Reports as per HPI, Reports no additional cardiovascular complaints, Denies acrocyanosis, Denies cool extremities, Denies painful fingertips, Denies chest pain, Denies chest pain at rest, Denies diaphoresis, Denies syncope, Denies irregular heart rhythm, Denies claudication, Denies leg edema, Denies lightheadedness, Denies palpitations and Reports dyspnea Respiratory: Reports dyspnea Denies syncope Endocrine: Denies palpitations Physical Exam Vital Signs: Last Vital Signs Temp 97.8 F 06/06/20 07:35 Pulse 78 06/06/20 07:35 Resp 18 06/06/20 07:35 BP 101/59 L 06/06/20 07:35 Pulse Ox 98 06/06/20 07:35 Body Mass Index 49.7 Const General: cooperative, comfortable and no acute distress Orientation/consciousness: patient oriented x3 HENAZ Other: Unremarkable Neck Neck: Yes normal visual inspection Chest Chest palpation & inspection: normal inspection of the chest Resp Auscultation: crackles (At lung bases) and no wheezes Cardio Jugular venous distension: no JVD Palpation: normal PMI Heart sounds: S1 normal heart sound present, S2 normal heart sound present, no gallops, no murmurs and no rubs GI Palpation (GI): Soft to palpation Back/Spine/Pelvis Other: unremarkable Skin General skin exam: no rashes or lesions noted Neuro General: patient oriented x3 Extrem General: Yes edema (1+) Psych Mental Status: mental status grossly normal Results Labs and Meds Result diagrams: 06/06/20 05:29 06/06/20 05:29 Lab results: Laboratory Results - last 24 hr 06/04/20 06/06/20 06/06/20 20:18 05:29 05:29 WBC 15.2 H RBC 5.55 H Hgb 14.4 Hct 47.0 MCV 84.7 MCH 25.9 L MCHC 30.6 L RDW 16.9 H Plt Count 249 MPV 10.7 Immature Gran % (Auto) 0.9 H Neut % (Auto) 78.9 H Lymph % (Auto) 11.8 L [place] % (Auto) 6.8 Eos % (Auto) 1.4 Baso % (Auto) 0.2 Lymph # (Auto) 1.8 [place] # (Auto) 1.0 Eos # (Auto) 0.2 Baso # (Auto) 0.0 Abs Immat Gran (auto) 0.13 H Absolute Neuts (auto) 12.0 H Absolute Nucleated RBC 0.000 Nucleated RBC % (auto) 0.0 Sodium 140 Potassium 3.3 Chloride 97 Carbon Dioxide 29 Anion Gap 17 BUN 25 H D Creatinine 1.15 Estim Creat Clear Calc 76.1 Estimated GFR 51 Random Glucose 122 H Calcium 7.8 L D Magnesium 1.4 L* B-Natriuretic Peptide Procalcitonin Respiratory Panel [place] See Note Adenovirus (Rapid PCR) Not Detected B.pert (TEM-PCR) Not Detected B.parapertussis DNA PCR Not Detected C. pneumoniae DNA (PCR) Not Detected Coronavirus OC43 (PCR) Not Detected Coronavirus HKU1 (PCR) Not Detected Coronavirus 229E (PCR) Not Detected Coronavirus NL63 (PCR) Not Detected Human Metapneumovir PCR Not Detected Influenza A (RT-PCR) Not Detected Influenza B (RT-PCR) Not Detected M. pneumoniae (PCR) Not Detected Parainfluenza 1 (PCR) Not Detected Parainfluenza 2 (PCR) Not Detected Parainfluenza 3 (PCR) Not Detected Parainfluenza 4 (PCR) Not Detected RSV (PCR) Not Detected Entero/Rhino (PCR) Not Detected SARS-CoV-2 RNA (RT-PCR) Not Detected 06/06/20 06/06/20 05:29 05:29 WBC RBC Hgb Hct MCV MCH MCHC RDW Plt Count MPV Immature Gran % (Auto) Neut % (Auto) Lymph % (Auto) [place] % (Auto) Eos % (Auto) Baso % (Auto) Lymph # (Auto) [place] # (Auto) Eos # (Auto) Baso # (Auto) Abs Immat Gran (auto) Absolute Neuts (auto) Absolute Nucleated RBC Nucleated RBC % (auto) Sodium Potassium Chloride Carbon Dioxide Anion Gap BUN Creatinine Estim Creat Clear Calc Estimated GFR Random Glucose Calcium Magnesium B-Natriuretic Peptide 221 H Procalcitonin 0.06 Respiratory Panel [place] Adenovirus (Rapid PCR) B.pert (TEM-PCR) B.parapertussis DNA PCR C. pneumoniae DNA (PCR) Coronavirus OC43 (PCR) Coronavirus HKU1 (PCR) Coronavirus 229E (PCR) Coronavirus NL63 (PCR) Human Metapneumovir PCR Influenza A (RT-PCR) Influenza B (RT-PCR) M. pneumoniae (PCR) Parainfluenza 1 (PCR) Parainfluenza 2 (PCR) Parainfluenza 3 (PCR) Parainfluenza 4 (PCR) RSV (PCR) Entero/Rhino (PCR) SARS-CoV-2 RNA (RT-PCR) Imaging Radiologist's impression: Impressions Hepatobiliary Scan Nuclear Medicine 06/04/20 16:00 IMPRESSION: Normal hepatobiliary scintigraphy. Radiotracer accumulation in the gallbladder is strong evidence of a patent cystic duct. Normal gallbladder ejection fraction. Progress Note: A&P Assessment and plan (1) Acute on chronic HFrEF (heart failure with reduced ejection fraction): Status: Acute (2) Essential hypertension: Status: Acute (3) Morbid obesity: Status: Acute (4) JONI (obstructive sleep apnea): Status: Acute Assessment and Plan: Last echocardiogram from January 2020 with LVEF 25-30%. Continue IV Bumex dri p. Add oral Metolazone. Continue Coreg, Entresto, spironolactone. Correct lytes. Echocardiogram today. We will follow. Cardiac catheterization from 2019-no significant coronary disease. All labs including troponins, cardiac BNP reviewed. Fall Risk Details Current Medications: Current Medications Generic Name Dose Route Start Last Admin Trade Name Freq PRN Reason Stop Dose Admin Acetaminophen 650 mg 06/04/20 17:35 06/06/20 03:40 Acetaminophen 325 Mg Tablet PO 650 mg Q6H PRN Administration fever or pain Carvedilol 25 mg 06/04/20 21:00 06/05/20 21:02 Carvedilol 25 Mg Tablet PO 25 mg BID JOSTIN Administration Protocol Docusate Sodium 100 mg 06/04/20 17:35 Docusate Sodium 100 Mg Capsule PO BID PRN Constipation Bumetanide 25 mg/ IV 100 mls @ 2 mls/hr 06/04/20 17:45 06/06/20 07:27 Miscellaneous Supplies IVCONT 0 mg/hr .Q24H JOSTIN 0 mls/hr Infusion 0.5 MG/HR Loratadine 10 mg 06/05/20 09:00 06/06/20 07:58 Loratadine 10 Mg Tablet PO 10 mg DAILY JOSTIN Administration Nicotine Polacrilex 4 mg 06/04/20 18:01 06/06/20 03:46 Nicotine Polacrilex 4 Mg Lozenge BUCCAL 4 mg Q2H PRN Administration Nicotine Cravings Ondansetron HCl 4 mg 06/04/20 17:35 Ondansetron Hcl 4 Mg/2 Ml Vial IVPUSH Q8H PRN Nausea and Vomiting Pharmacy Consult 1 each 06/04/20 16:43 Consult Rx Perform Med Rec MISCELLANE ONCE PRN Consult order Sacubitril/Valsartan 1 tab 06/04/20 18:00 06/05/20 12:02 Sacubitril/Valsartan 97/103 1 Tab Tablet PO 1 tab DAILY JOSTIN Administration Protocol Sodium Chloride 3 ml 06/05/20 00:00 06/06/20 07:58 0.9 % Sodium Chloride Flush 3 Ml Syringe IVFLUSH 3 ml QSHIFT JOSTIN Administration Spironolactone 50 mg 06/05/20 09:00 06/05/20 12:02 Spironolactone 25 Mg Tablet PO 50 mg DAILY JOSTIN Administration Protocol Time Spent With Patient Time: Total time spent is greater than 50% in coordination of care (as documented) at patient's floor/unit and/or counseling patient: Time with patient: less than 15 minutes
--- NOTE | 2020-06-06 10:59 | MHC.CM.PN ---
met with pt who is independent pt reports having own ride home when dcd she has questions about her bill which she mstates she repeatly gets billed when she has been inpt here ,refferred to rtell paiz who will call pt
--- NOTE | 2020-06-06 12:45 | P.PNIM_ITS ---
Subjective Subjective Date of Service: 06/06/20 Interval History: Bumetanide gtt held overnight due to low BP This am, while transferring from chair to bed for TTE, became dizzy and blacked out and had 2 sinus pauses x3sec She has been having intermittent sudden blackout episodes at home dating back to at least January per last Cardiology clinic note Still c/o dyspnea + edema. RUQ pain improving, mostly with coughing. Physical Exam Vital Signs: Vital Signs: Last Vital Signs Temp 97.8 F 06/06/20 07:35 Pulse 78 06/06/20 07:35 Resp 18 06/06/20 07:35 BP 101/59 L 06/06/20 07:35 Pulse Ox 98 06/06/20 07:35 Body Mass Index 49.7 Gen: in no acute distress HEENT: sclera anicteric, moist mucus membranes Neck: supple Lungs: diminished at bases bilaterally Heart: regular rate and rhythm, no murmurs Abd: soft, obese, mild RUQ tenderness without [place] sign Ext: 2+ BLE edema Skin: warm/well-perfused Neuro: alert and oriented x3, no focal findings Psych: appropriate affect Objective Data Current Medications Generic Name Dose Route Start Last Admin Trade Name Freq PRN Reason Stop Dose Admin Acetaminophen 650 mg 06/04/20 17:35 06/06/20 03:40 Acetaminophen 325 Mg Tablet PO 650 mg Q6H PRN Administration fever or pain Carvedilol 25 mg 06/04/20 21:00 06/05/20 21:02 Carvedilol 25 Mg Tablet PO 25 mg BID JOSTIN Administration Protocol Docusate Sodium 100 mg 06/04/20 17:35 Docusate Sodium 100 Mg Capsule PO BID PRN Constipation Bumetanide 25 mg/ IV 100 mls @ 2 mls/hr 06/04/20 17:45 06/06/20 07:27 Miscellaneous Supplies IVCONT 0 mg/hr .Q24H JSOTIN 0 mls/hr Infusion 0.5 MG/HR Loratadine 10 mg 06/05/20 09:00 06/06/20 07:58 Loratadine 10 Mg Tablet PO 10 mg DAILY JOSTIN Administration Nicotine Polacrilex 4 mg 06/04/20 18:01 06/06/20 03:46 Nicotine Polacrilex 4 Mg Lozenge BUCCAL 4 mg Q2H PRN Administration Nicotine Cravings Ondansetron HCl 4 mg 06/04/20 17:35 Ondansetron Hcl 4 Mg/2 Ml Vial IVPUSH Q8H PRN Nausea and Vomiting Pharmacy Consult 1 each 06/04/20 16:43 Consult Rx Perform Med Rec MISCELLANE ONCE PRN Consult order Sacubitril/Valsartan 1 tab 06/04/20 18:00 06/05/20 12:02 Sacubitril/Valsartan 97/103 1 Tab Tablet PO 1 tab DAILY JOSTIN Administration Protocol Sodium Chloride 3 ml 06/05/20 00:00 06/06/20 07:58 0.9 % Sodium Chloride Flush 3 Ml Syringe IVFLUSH 3 ml QSHIFT JOSTIN Administration Spironolactone 50 mg 06/05/20 09:00 06/05/20 12:02 Spironolactone 25 Mg Tablet PO 50 mg DAILY JOSTIN Administration Protocol Labs CBC & Chem 7: 06/06/20 05:29 06/06/20 05:29 Labs: Laboratory Results - last 24 hr 06/06/20 06/06/20 06/06/20 05:29 05:29 05:29 WBC 15.2 H RBC 5.55 H Hgb 14.4 Hct 47.0 MCV 84.7 MCH 25.9 L MCHC 30.6 L RDW 16.9 H Plt Count 249 MPV 10.7 Immature Gran % (Auto) 0.9 H Neut % (Auto) 78.9 H Lymph % (Auto) 11.8 L [place] % (Auto) 6.8 Eos % (Auto) 1.4 Baso % (Auto) 0.2 Lymph # (Auto) 1.8 [place] # (Auto) 1.0 Eos # (Auto) 0.2 Baso # (Auto) 0.0 Abs Immat Gran (auto) 0.13 H Absolute Neuts (auto) 12.0 H Absolute Nucleated RBC 0.000 Nucleated RBC % (auto) 0.0 Sodium 140 Potassium 3.3 Chloride 97 Carbon Dioxide 29 Anion Gap 17 BUN 25 H D Creatinine 1.15 Estim Creat Clear Calc 76.1 Estimated GFR 51 Random Glucose 122 H Calcium 7.8 L D Magnesium 1.4 L* B-Natriuretic Peptide 221 H Procalcitonin 06/06/20 05:29 WBC RBC Hgb Hct MCV MCH MCHC RDW Plt Count MPV Immature Gran % (Auto) Neut % (Auto) Lymph % (Auto) [place] % (Auto) Eos % (Auto) Baso % (Auto) Lymph # (Auto) [place] # (Auto) Eos # (Auto) Baso # (Auto) Abs Immat Gran (auto) Absolute Neuts (auto) Absolute Nucleated RBC Nucleated RBC % (auto) Sodium Potassium Chloride Carbon Dioxide Anion Gap BUN Creatinine Estim Creat Clear Calc Estimated GFR Random Glucose Calcium Magnesium B-Natriuretic Peptide Procalcitonin 0.06 Microbiology Microbiology Results: Microbiology 06/04/20 17:00 Blood - Venous Blood Culture - Preliminary No growth after 24 hours. 06/04/20 16:53 Blood - Venous Blood Culture - Preliminary No growth after 24 hours. Assessment and Plan (1) Acute decompensated heart failure: Status: Acute (2) Pneumonia: Status: Acute (3) Acalculous cholecystitis: Status: Acute Assessment and Plan: hospital d#3 44yo F with HFrEF/NICM, HTN, JONI, obesity presenting with weight gain,edema, dyspnea, cough, and RUQ pain admitted for ADHF with question of acalculous cholecystitis and pneumonia # ADHF, acute/chronic HFrEF, nonischemic cardiomyopathy - holding bumetanide infusion, carvedilol, Entresto, and spironolactone for now; resume if BP recovers. also got 1 dose IV chlorthiazide, t/c metolazone if needed; monitor BMP, BNP, Mg, I/O - TTE pending - Cardiology following # acute acalculous cholecystitis, not - HIDA scan argues against cholecystitis, will d/c pip/miranda, Surgery signing off # possible pneumonia with hemoptysis, not - PCT remains low, BCx NGTD, SARS-CoV2 neg x2, likely lung findings due to pu lmonary edema from CHF, will d/c pip/miranda + doxy # JONI - CPAP as per home regimen, pulmonary consult # morbid obesity - weight loss # tobacco abuse - NRT # VTE ppx - SCDs; in the presence of hemoptysis, will hold off on heparinoids though has not had any hemoptysis since admission
--- NOTE | 2020-06-06 12:50 | PC.NURSE ---
Addendum entered by Jenna Ramirez RN 06/06/20 19:50: 1330- Pt had 11 beat vtach with about 2 second pause afterwards. Pt was resting in bed, with student nurses taking her vitals. Per patient she had same feeling as before where she feels like her heart stops and blackouts . Vitals stable. Dr. Brower made aware. No new orders at this time. Original Note: 1100- Pt had 3.3 and 3.2 second pauses. This RN was not in room at the time of pauses. Around that time pt was getting out of recliner to bed for echo. Upon assessing pt afterwards pt states she was, dizzy and blacked out when she got back in bed. 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 Dr. Brower made aware. Pulmonary consult placed. Pt has no complaints at this time.
[2020-06-06 15:23] LABS: Anion Gap 14 (12-20); Blood Urea Nitrogen 22 mg/dL (9-16); Calcium 8.4 mg/dL (8.4-10.2); Carbon Dioxide 33 mmol/L (22-29); Chloride 96 mmol/L (96-108); Creatinine Clr Calc Pharmacy 102.9; Estimated Glomerular Filt Rate > 60; Glucose Random 100 mg/dL (60-115); Magnesium 1.8 mg/dL (1.6-2.6); Potassium 3.3 mmol/L (3.3-5.1); Sodium 140 mmol/L (135-145)
--- NOTE | 2020-06-06 15:28 | MHC.CM.PN ---
yoon randhawa with vna referral given
[2020-06-06] MEDS: Potassium Chloride Packet 20 MEQ PACKET 40 MEQ PO (15:29)
[2020-06-06] MEDS: Bumetanide 25 MG in Container,Empty 0 ML IVCONT (20:18)
[2020-06-07 04:00] VITALS: BP 114/57; PULSE 76; RESP 20; TEMP 37.2; O2SAT 98
[2020-06-07 05:44] VITALS: BMI 48.3
[2020-06-07 06:51] LABS: MANUAL DIFF FLAG NO
[2020-06-07 07:00] LABS: Basophils Percent Auto 0.3 % (0-2); Eosinophils Absolute Auto 0.2 X10*3/uL (0.0-0.4); Eosinophils Percent Auto 1.3 % (0-4); Hematocrit 48.3 % (37-47); Hemoglobin 14.9 g/dl (12.0-16.0); Imm Gran Abs Auto 0.06 X10*3/uL (0.00-0.03); Imm Gran Pct Auto 0.4 % (0.0-0.4); Lymphocytes Absolute Auto 2.3 X10*3/uL (1.2-4.9); Lymphocytes Percent Auto 16.5 % (20-40); Mean Corpuscular HGB Conc 30.8 g/dl (31.0-35.0); Mean Corpuscular Hemoglobin 25.7 pg (27.0-33.0); Mean Corpuscular Volume 83.4 fL (80-98); Mean Platelet Volume 10.8 fL (9.4-12.3); Monocytes Percent Auto 6.8 % (2-11); Neutrophils Absolute Auto 10.6 X10*3/uL (2.0-8.3); Neutrophils Percent Auto 74.7 % (45-73); Platelet Count 325 X10*3/uL (160-400); Red Blood Count 5.79 X10*6/uL (4.20-5.50); Red Cell Distribution Width 17.9 % (11.0-16.0); White Blood Count 14.2 X10*3/uL (4.8-10.8)
[2020-06-07 07:30] LABS: B Type Natriuretic Peptide 198 pg/mL (<100)
[2020-06-07 07:43] VITALS: BP 102/54; PULSE 77; RESP 18; TEMP 36.5; O2SAT 99
[2020-06-07 07:43] LABS: Anion Gap 16 (12-20); Blood Urea Nitrogen 20 mg/dL (9-16); Calcium 8.6 mg/dL (8.4-10.2); Carbon Dioxide 33 mmol/L (22-29); Chloride 93 mmol/L (96-108); Creatinine Clr Calc Pharmacy 108.8; Estimated Glomerular Filt Rate > 60; Glucose Random 154 mg/dL (60-115); Magnesium 1.6 mg/dL (1.6-2.6); Potassium 3.2 mmol/L (3.3-5.1); Sodium 139 mmol/L (135-145)
[2020-06-07] MEDS: Magnesium Oxide 400 MG TABLET 800 MG PO (08:26)
[2020-06-07] MEDS: Loratadine 10 MG TABLET PO (08:27)
--- NOTE | 2020-06-07 09:32 | P.PNCA_ITS ---
Subjective Subjective Date of Service: 06/07/20 Interval history: She still has some shortness of breath. Cough with blood- tinged sputum. Occasional dizzy episodes. Review of Systems Review of Systems Yes all other systems are reviewed and are negative Cardiovascular: Reports as per HPI, Reports no additional cardiovascular com plaints, Denies acrocyanosis, Denies cool extremities, Denies painful fingertips, Denies chest pain, Denies chest pain at rest, Denies diaphoresis, Denies syncope, Denies irregular heart rhythm, Denies claudication, Denies leg edema, Denies lightheadedness, Denies palpitations and Reports dyspnea Respiratory: Reports dyspnea Denies syncope Endocrine: Denies palpitations Physical Exam Vital Signs: Last Vital Signs Temp 97.7 F 06/07/20 07:43 Pulse 77 06/07/20 07:43 Resp 18 06/07/20 07:43 BP 102/54 L 06/07/20 07:43 Pulse Ox 99 06/07/20 07:43 Body Mass Index 48.3 Const General: cooperative, comfortable and no acute distress Orientation/consciousness: patient oriented x3 HENMT Other: Unremarkable Neck Neck: Yes normal visual inspection Chest Chest palpation & inspection: normal inspection of the chest Resp Auscultation: crackles (At lung bases) and no wheezes Cardio Jugular venous distension: no JVD Palpation: normal PMI Heart sounds: S1 normal heart sound present, S2 normal heart sound present, no gallops, no murmurs and no rubs GI Palpation (GI): Soft to palpation Back/Spine/Pelvis Other: unremarkable Skin General skin exam: no rashes or lesions noted Neuro General: patient oriented x3 Extrem General: Yes edema (1+) Psych Mental Status: mental status grossly normal Results Labs and Meds Result diagrams: 06/07/20 06:19 06/07/20 06:19 Lab results: Laboratory Results - last 24 hr 06/06/20 06/07/20 06/07/20 14:30 06:19 06:19 WBC RBC Hgb Hct MCV MCH MCHC RDW Plt Count MPV Immature Gran % (Auto) Neut % (Auto) Lymph % (Auto) [place] % (Auto) Eos % (Auto) Baso % (Auto) Lymph # (Auto) [place] # (Auto) Eos # (Auto) Baso # (Auto) Abs Immat Gran (auto) Absolute Neuts (auto) Absolute Nucleated RBC Nucleated RBC % (auto) Sodium 140 139 Potassium 3.3 3.2 L Chloride 96 93 L Carbon Dioxide 33 H 33 H Anion Gap 14 16 BUN 22 H 20 H Creatinine 0.85 0.79 Estim Creat Clear Calc 102.9 108.8 Estimated GFR > 60 > 60 Random Glucose 100 154 H D Calcium 8.4 D 8.6 Magnesium 1.8 1.6 B-Natriuretic Peptide 198 H 06/07/20 06:19 WBC 14.2 H RBC 5.79 H Hgb 14.9 Hct 48.3 H MCV 83.4 MCH 25.7 L MCHC 30.8 L RDW 17.9 H Plt Count 325 D MPV 10.8 Immature Gran % (Auto) 0.4 Neut % (Auto) 74.7 H Lymph % (Auto) 16.5 L [place] % (Auto) 6.8 Eos % (Auto) 1.3 Baso % (Auto) 0.3 Lymph # (Auto) 2.3 [place] # (Auto) 1.0 Eos # (Auto) 0.2 Baso # (Auto) 0.0 Abs Immat Gran (auto) 0.06 H Absolute Neuts (auto) 10.6 H Absolute Nucleated RBC 0.000 Nucleated RBC % (auto) 0.0 Sodium Potassium Chloride Carbon Dioxide Anion Gap BUN Creatinine Estim Creat Clear Calc Estimated GFR Random Glucose Calcium Magnesium B-Natriuretic Peptide ECG Attestation: I personally reviewed and interpreted this ECG as follows: Interpretation: Telemetry shows short run of NSVT. Also daytime transient heart block with maximum duration of about 3.3 seconds. Progress Note: A&P Assessment and plan (1) Acute on chronic HFrEF (heart failure with reduced ejection fraction): Status: Acute (2) Essential hypertension: Status: Acute (3) Morbid obesity: Status: Acute (4) JONI (obstructive sleep apnea): Status: Acute Assessment and Plan: Last echocardiogram from January 2020 with LVEF 25-30%. Continue IV Bumex drip. Add oral Metolazone. Other meds on hold due to low BP, but may resume entresto. Correct lytes. Will discuss with EP about ICD. Ask pulm to see regarding sleep apea. Cardiac catheterization from 2019-no significant coronary disease. All labs including troponins, cardiac BNP reviewed. Fall Risk Details Current Medications: Current Medications Generic Name Dose Route Start Last Admin Trade Name Freq PRN Reason Stop Dose Admin Acetaminophen 650 mg 06/04/20 17:35 06/06/20 03:40 Acetaminophen 325 Mg Tablet PO 650 mg Q6H PRN Administration fever or pain Carvedilol 25 mg 06/04/20 21:00 06/05/20 21:02 Carvedilol 25 Mg Tablet PO 25 mg BID JOSTIN Administration Protocol Docusate Sodium 100 mg 06/04/20 17:35 Docusate Sodium 100 Mg Capsule PO BID PRN Constipation Doxycycline Hyclate 100 mg 06/07/20 09:15 Doxycycline Hyclate 100 Mg Tablet PO Q12H JOSTIN Bumetanide 25 mg/ IV 100 mls @ 2 mls/hr 06/06/20 19:00 06/06/20 20:18 Miscellaneous Supplies IVCONT 0.5 mg/hr .Q24H JOSTIN 2 mls/hr Administration 0.5 MG/HR Ceftriaxone Sodium 1 gm/ 50 mls @ 100 mls/hr 06/07/20 09:15 Sodium Chloride IV Q24H JOSTIN Loratadine 10 mg 06/05/20 09:00 06/07/20 08:27 Loratadine 10 Mg Tablet PO 10 mg DAILY JOSTIN Administration Nicotine Polacrilex 4 mg 06/04/20 18:01 06/06/20 03:46 Nicotine Polacrilex 4 Mg Lozenge BUCCAL 4 mg Q2H PRN Administration Nicotine Cravings Ondansetron HCl 4 mg 06/04/20 17:35 Ondansetron Hcl 4 Mg/2 Ml Vial IVPUSH Q8H PRN Nausea and Vomiting Pharmacy Consult 1 each 06/04/20 16:43 Consult Rx Perform Med Rec MISCELLANE ONCE PRN Consult order Sacubitril/Valsartan 1 tab 06/04/20 18:00 06/05/20 12:02 Sacubitril/Valsartan 97/103 1 Tab Tablet PO 1 tab DAILY JOSTIN Administration Protocol Sodium Chloride 3 ml 06/05/20 00:00 06/07/20 08:27 0.9 % Sodium Chloride Flush 3 Ml Syringe IVFLUSH Not Given QSHIFT JOSTIN Spironolactone 50 mg 06/05/20 09:00 06/05/20 12:02 Spironolactone 25 Mg Tablet PO 50 mg DAILY JOSTIN Administration Protocol Time Spent With Patient Time: Total time spent is greater than 50% in coordination of care (as documented) at patient's floor/unit and/or counseling patient: Time with patient: less than 15 minutes
--- NOTE | 2020-06-07 09:57 | P.CONPL_ITS ---
History of Present Illness History of Present Illness Consult date: 06/07/20 Chief complaint: ADHF, cholecystitis Narrative: Ms Gonzales is a 44 year-old [place]ijani- and Divehi-speaking woman with severe nonischemic cardiomyopathy (LVEF 25% 02/04/20) followed by Abdias Yu here at [facility] [place], essential hypertension, JONI on CPAP, and morbid obesity who presents with approximately 3 months of worsening swelling of her legs and abdomen, nearly 50-pound weight gain (dry weight approximately 220 lb), increasing dyspnea on exertion, and 3-pillow orthopnea. She also notes an intermittent dry cough over the last month or so, and today coughed up some blood. She denies fever, nasal congestion, anosmia, or sore throat. She denies contact with any COVID-19 cases. Her , with whom she lives, had his 2nd dose of the COVID-19 vaccine today; the patient has not had any COVID-19 vaccination. Over the last 2 weeks, she has also developed severe pain in her right upper quadrant, just under her ribcage. The pain is constant and not exacerbated by eating fatty foods. It is associated with nausea and bloating. The patient also has been describing worsening cough with yellow mucus along w ith hemoptysis. She does have pleuritic discomfort. She did have a CT scan of the chest demonstrating by lobar consolidations on the right hemithorax along with significant air trapping. The patient initially was thought to have cholecystitis but that was ruled out. The right upper quadrant discomfort is likely more consistent with her pneumonia. There is also a risk of aspiration pneumonia being the culprit. In addition to that the patient does have daytime drowsiness. Her [place] score is elevated 12/24. She did have a sleep study back in October 2019 demonstrating mild sleep apnea. She also has significant hypoxia. At this point the patient be started on CPAP in the hospital. She needs to be set up with CPAP as an outpatient as well. Review of Systems Constitutional: Constitutional: Reports daytime sleepiness and Denies night sweats ENT: Denies change in voice, Denies lip swelling, Denies mouth pain, Reports nasal congestion, Reports nasal discharge and Denies tongue swelling Cardiovascular: Cardiovascular: Denies chest pain Respiratory: Respiratory: Reports cough, Reports hemoptysis, Reports excessive phlegm production, Reports pain on inspiration and Reports pain with cough Gastrointestinal: Gastrointestinal: Denies abdominal pain Musculoskeletal: Musculoskeletal: Denies no additional musculoskeletal complaints Neurologic: Denies Neuro-related abnormal movements Psychiatric: Psychiatric: Denies no additional psychiatric complaints Hematologic/Lymphatic: Hematologic/Lymphatic: Denies easy bleeding and Denies lymphadenopathy Allergic/Immunologic: Allergic/Immunologic: Denies lip swelling and Denies tongue swelling PMFSH Past Medical History Medical History (Updated 06/07/20 @ 10:06 by Fred Velez MD) Chronic HFrEF (heart failure with reduced ejection fraction) Essential hypertension HTN (hypertension) Morbid obesity Nonischemic cardiomyopathy Obesity JONI (obstructive sleep apnea) Family History Family History Mother HTN (hypertension) Surgical History Surgical History Hx of section Social History Social History Household Members: Spouse and Children Housing: Apartment Alcohol intake: never Smoking Status: Current every day smoker Tobacco Type: Cigarette Second Hand Smoke Exposure: Yes service: No Meds Allergies Allergy/AdvReac Type Severity Reaction Status Date / Time SEASONAL ALLERGIES Allergy Unknown ASTHMA, Uncoded 06/04/20 12:12 NASAL CONGESTION Active Medications: Current Medications Generic Name Dose Route Start Last Admin Trade Name Freq PRN Reason Stop Dose Admin Acetaminophen 650 mg 06/04/20 17:35 06/06/20 03:40 Acetaminophen 325 Mg Tablet PO 650 mg Q6H PRN Administration fever or pain Carvedilol 25 mg 06/04/20 21:00 06/05/20 21:02 Carvedilol 25 Mg Tablet PO 25 mg BID JOSTIN Administration Protocol Docusate Sodium 100 mg 06/04/20 17:35 Docusate Sodium 100 Mg Capsule PO BID PRN Constipation Doxycycline Hyclate 100 mg 06/07/20 09:15 Doxycycline Hyclate 100 Mg Tablet PO Q12H JOSTIN Bumetanide 25 mg/ IV 100 mls @ 2 mls/hr 06/06/20 19:00 06/06/20 20:18 Miscellaneous Supplies IVCONT 0.5 mg/hr .Q24H JOSTIN 2 mls/hr Administration 0.5 MG/HR Ceftriaxone Sodium 1 gm/ 50 mls @ 100 mls/hr 06/07/20 09:15 Sodium Chloride IV Q24H JOSTIN Loratadine 10 mg 06/05/20 09:00 06/07/20 08:27 Loratadine 10 Mg Tablet PO 10 mg DAILY JOSTIN Administration Nicotine Polacrilex 4 mg 06/04/20 18:01 06/06/20 03:46 Nicotine Polacrilex 4 Mg Lozenge BUCCAL 4 mg Q2H PRN Administration Nicotine Cravings Ondansetron HCl 4 mg 06/04/20 17:35 Ondansetron Hcl 4 Mg/2 Ml Vial IVPUSH Q8H PRN Nausea and Vomiting Pharmacy Consult 1 each 06/04/20 16:43 Consult Rx Perform Med Rec MISCELLANE ONCE PRN Consult order Sacubitril/Valsartan 1 tab 06/04/20 18:00 06/05/20 12:02 Sacubitril/Valsartan 97/103 1 Tab Tablet PO 1 tab DAILY [facility] Administration Protocol Sodium Chloride 3 ml 06/05/20 00:00 06/07/20 08:27 0.9 % Sodium Chloride Flush 3 Ml Syringe IVFLUSH Not Given QSHIFT [facility] Spironolactone 50 mg 06/05/20 09:00 06/05/20 12:02 Spironolactone 25 Mg Tablet PO 50 mg DAILY [facility] Administration Protocol Home Medications Medication Instructions Recorded Confirmed Last Taken Type carvedilol 25 mg tablet 25 mg PO BID 02/11/20 06/04/20 Unknown History spironolactone 50 mg tablet 50 mg PO DAILY 02/11/20 06/04/20 Unknown History bumetanide 1 tab PO BID 06/04/20 06/04/20 Unknown History cetirizine 1 tab PO DAILY 06/04/20 06/04/20 Unknown History Physical Exam Vital Signs: Vital Signs: Last Vital Signs Temp 97.7 F 06/07/20 07:43 Pulse 77 06/07/20 07:43 Resp 18 06/07/20 07:43 BP 102/54 L 06/07/20 07:43 Pulse Ox 99 06/07/20 07:43 Body Mass Index 48.3 Const: General: alert HENMT: General nose exam: Abnormal external nose present and Nasal discharge present Eyes: Pupils: Equal, round and reactive pupils present Neck: Neck: Yes normal visual inspection, Yes full ROM and Yes no lymphadeno teresa Chest: Chest palpation & inspection: normal inspection of the chest Resp: Auscultation: diminished lung sounds Cardio: Rate: regular rate Rhythm: regular rhythm Heart sounds: S1 normal heart sound present and S2 normal heart sound present GI: Palpation (GI): Soft to palpation and nontender Auscultation: normal bowel sounds : General: Yes no CVA tenderness Back/Spine/Pelvis: Back: no CVA tenderness Skin: General skin exam: rashes and/or lesions noted Neuro: Cranial nerves: Yes Equal, round and reactive pupils present Results Laboratory Findings CBC and BMP: 06/07/20 06:19 06/07/20 06:19 ABG, PT/INR, D-dimer: PT/INR, D-dimer PT 14.9 SEC (10.8-13.0) H 06/04/20 14:24 INR 1.3 (0.9-1.1) H 06/04/20 14:24 Abnormal lab findings: Abnormal Labs 06/04/20 06/04/20 06/04/20 13:33 13:33 13:33 WBC 14.2 H RBC Hct MCH 26.1 L MCHC 30.8 L RDW 16.6 H Immature Gran % (Auto) Neut % (Auto) 79.8 H Lymph % (Auto) 14.0 L Abs Immat Gran (auto) 0.06 H Absolute Neuts (auto) 11.3 H PT INR Potassium Chloride 109 H Carbon Dioxide 19 L BUN 17 H Random Glucose Calcium Magnesium Total Bilirubin 1.7 H Lactate Dehydrogenase 307 H Troponin I High Sens C-Reactive Protein 0.73 H B-Natriuretic Peptide 2519 H Urine Protein 06/04/20 06/04/20 06/04/20 13:33 14:24 16:53 WBC RBC Hct MCH MCHC RDW Immature Gran % (Auto) Neut % (Auto) Lymph % (Auto) Abs Immat Gran (auto) Absolute Neuts (auto) PT 14.9 H INR 1.3 H Potassium Chloride Carbon Dioxide BUN Random Glucose Calcium Magnesium Total Bilirubin Lactate Dehydrogenase Troponin I High Sens 48.2 H 43.8 H C-Reactive Protein B-Natriuretic Peptide Urine Protein 06/04/20 06/05/20 06/05/20 20:17 06:05 06:05 WBC 14.7 H RBC Hct MCH 26.3 L MCHC 30.6 L RDW 16.8 H Immature Gran % (Auto) 0.5 H Neut % (Auto) 83.2 H Lymph % (Auto) 10.3 L Abs Immat Gran (auto) 0.08 H Absolute Neuts (auto) 12.2 H PT INR Potassium Chloride Carbon Dioxide BUN Random Glucose Calcium Magnesium Total Bilirubin Lactate Dehydrogenase Troponin I High Sens C-Reactive Protein B-Natriuretic Peptide 2249 H Urine Protein 2+ H 06/06/20 06/06/20 06/06/20 05:29 05:29 05:29 WBC 15.2 H RBC 5.55 H Hct MCH 25.9 L MCHC 30.6 L RDW 16.9 H Immature Gran % (Auto) 0.9 H Neut % (Auto) 78.9 H Lymph % (Auto) 11.8 L Abs Immat Gran (auto) 0.13 H Absolute Neuts (auto) 12.0 H PT INR Potassium Chloride Carbon Dioxide BUN 25 H D Random Glucose 122 H Calcium 7.8 L D Magnesium 1.4 L* Total Bilirubin Lactate Dehydrogenase Troponin I High Sens C-Reactive Protein B-Natriuretic Peptide 221 H Urine Protein 06/06/20 06/07/20 06/07/20 14:30 06:19 06:19 WBC RBC Hct MCH MCHC RDW Immature Gran % (Auto) Neut % (Auto) Lymph % (Auto) Abs Immat Gran (auto) Absolute Neuts (auto) PT INR Potassium 3.2 L Chloride 93 L Carbon Dioxide 33 H 33 H BUN 22 H 20 H Random Glucose 154 H D Calcium Magnesium Total Bilirubin Lactate Dehydrogenase Troponin I High Sens C-Reactive Protein B-Natriuretic Peptide 198 H Urine Protein 06/07/20 06:19 WBC 14.2 H RBC 5.79 H Hct 48.3 H MCH 25.7 L MCHC 30.8 L RDW 17.9 H Immature Gran % (Auto) Neut % (Auto) 74.7 H Lymph % (Auto) 16.5 L Abs Immat Gran (auto) 0.06 H Absolute Neuts (auto) 10.6 H PT INR Potassium Chloride Carbon Dioxide BUN Random Glucose Calcium Magnesium Total Bilirubin Lactate Dehydrogenase Troponin I High Sens C-Reactive Protein B-Natriuretic Peptide Urine Protein Microbiology: Microbiology 06/04/20 17:00 Blood - Venous Blood Culture - Preliminary No growth after 48 hours. 06/04/20 16:53 Blood - Venous Blood Culture - Preliminary No growth after 48 hours. Assessment and Plan (1) JONI (obstructive sleep apnea): Status: Acute (2) Pneumonia: Qualifiers: Laterality: right Pneumonia type: due to unspecified organism Lung location: unspecified part of lung Qualified Code(s): J18.9 - Pneumonia, unspecified organism Status: Acute (3) Nonischemic cardiomyopathy: Status: Acute Start antibiotic coverage for aspiration pneumonia. Urine pneumococcal and Legionella studies Repeat chest x-ray in 1-2 days Start CPAP therapy at nighttime Will follow
[2020-06-07] MEDS: cefTRIAXone sodium 1 GM in 0.9 % Sodium Chloride 50 ML IV (10:06)
[2020-06-07 11:16] VITALS: BP 117/68; PULSE 76; RESP 16; TEMP 36.3; O2SAT 99
[2020-06-07] MEDS: Potassium Chloride ER 20 MEQ TAB.ER.PRT PO ×2 (11:17→20:18)
[2020-06-07] MEDS: metOLazone 2.5 MG TABLET PO (11:17)
[2020-06-07] MEDS: Sacubitril/Valsartan 24/26 1 TAB TABLET PO ×2 (11:18→20:18)
[2020-06-07 15:29] VITALS: BP 103/70; PULSE 66; RESP 16; TEMP 36.1; O2SAT 99
--- NOTE | 2020-06-07 16:45 | HO.PM.IMPN ---
Subjective Subjective Date of Service: 06/07/20 Interval History: still dyspneic. cough improved. RUQ pain also improved. still quite edematous. no further dizzy spells. Physical Exam Vital Signs: Vital Signs: Last Vital Signs Temp 97.0 F 06/07/20 15:29 Pulse 66 06/07/20 15:29 Resp 16 06/07/20 15:29 BP 103/70 06/07/20 15:29 Pulse Ox 99 06/07/20 15:29 Body Mass Index 48.3 Gen: in no acute distress HEENT: sclera anicteric, moist mucus membranes Neck: supple Lungs: diminished at bases bilaterally Heart: regular rate and rhythm, no murmurs Abd: soft, obese, mild RUQ tenderness without [place] sign Ext: 2+ BLE edema Skin: warm/well-perfused Neuro: alert and oriented x3, no focal findings Psych: appropriate affect Objective Data Current Medications Generic Name Dose Route Start Last Admin Trade Name Freq PRN Reason Stop Dose Admin Acetaminophen 650 mg 06/04/20 17:35 06/06/20 03:40 Acetaminophen 325 Mg Tablet PO 650 mg Q6H PRN Administration fever or pain Carvedilol 25 mg 06/04/20 21:00 06/05/20 21:02 Carvedilol 25 Mg Tablet PO 25 mg BID JOSTIN Administration Protocol Docusate Sodium 100 mg 06/04/20 17:35 Docusate Sodium 100 Mg Capsule PO BID PRN Constipation Doxycycline Hyclate 100 mg 06/07/20 09:15 06/07/20 10:06 Doxycycline Hyclate 100 Mg Tablet PO 100 mg Q12H JOSTIN Administration Bumetanide 25 mg/ IV 100 mls @ 2 mls/hr 06/06/20 19:00 06/06/20 20:18 Miscellaneous Supplies IVCONT 0.5 mg/hr .Q24H JOSTIN 2 mls/hr Administration 0.5 MG/HR Ceftriaxone Sodium 1 gm/ 50 mls @ 100 mls/hr 06/07/20 09:15 06/07/20 11:01 Sodium Chloride IV Infused Q24H JOSTIN Infusion Loratadine 10 mg 06/05/20 09:00 06/07/20 08:27 Loratadine 10 Mg Tablet PO 10 mg DAILY JOSTIN Administration Nicotine Polacrilex 4 mg 06/04/20 18:01 06/06/20 03:46 Nicotine Polacrilex 4 Mg Lozenge BUCCAL 4 mg Q2H PRN Administration Nicotine Cravings Ondansetron HCl 4 mg 06/04/20 17:35 Ondansetron Hcl 4 Mg/2 Ml Vial IVPUSH Q8H PRN Nausea and Vomiting Pharmacy Consult 1 each 06/04/20 16:43 Consult Rx Perform Med Rec MISCELLANE ONCE PRN Consult order Potassium Chloride 20 meq 06/07/20 10:30 06/07/20 11:17 Potassium Chloride Er 20 Meq Tab.Er.Prt PO 06/07/20 21:01 20 meq BID JOSTIN Administration Sacubitril/Valsartan 1 tab 06/07/20 10:30 06/07/20 11:18 Sacubitril/Valsartan 1 Tab Tablet PO 1 tab BID JOSTIN Administration Protocol Sodium Chloride 3 ml 06/05/20 00:00 06/07/20 16:18 0.9 % Sodium Chloride Flush 3 Ml Syringe IVFLUSH Not Given QSHIFT [facility] Spironolactone 50 mg 06/05/20 09:00 06/05/20 12:02 Spironolactone 25 Mg Tablet PO 50 mg DAILY JOSTIN Administration Protocol Labs CBC & Chem 7: 06/07/20 06:19 06/07/20 06:19 Labs: Laboratory Results - last 24 hr 06/07/20 06/07/20 06/07/20 06:19 06:19 06:19 WBC 14.2 H RBC 5.79 H Hgb 14.9 Hct 48.3 H MCV 83.4 MCH 25.7 L MCHC 30.8 L RDW 17.9 H Plt Count 325 D MPV 10.8 Immature Gran % (Auto) 0.4 Neut % (Auto) 74.7 H Lymph % (Auto) 16.5 L [place] % (Auto) 6.8 Eos % (Auto) 1.3 Baso % (Auto) 0.3 Lymph # (Auto) 2.3 [place] # (Auto) 1.0 Eos # (Auto) 0.2 Baso # (Auto) 0.0 Abs Immat Gran (auto) 0.06 H Absolute Neuts (auto) 10.6 H Absolute Nucleated RBC 0.000 Nucleated RBC % (auto) 0.0 Sodium 139 Potassium 3.2 L Chloride 93 L Carbon Dioxide 33 H Anion Gap 16 BUN 20 H Creatinine 0.79 Estim Creat Clear Calc 108.8 Estimated GFR > 60 Random Glucose 154 H D Calcium 8.6 Magnesium 1.6 B-Natriuretic Peptide 198 H TTE 06/06/20 The left ventricular systolic function is severely decreased. The visually estimated ejection fraction is between 15-20%. - There is severe global hypokinesis. The basal inferior segment is akinetic. - There is mild mitral valve regurgitation. Microbiology Microbiology Results: Microbiology 06/04/20 17:00 Blood - Venous Blood Culture - Preliminary No growth after 48 hours. 06/04/20 16:53 Blood - Venous Blood Culture - Preliminary No growth after 48 hours. Assessment and Plan (1) Acute decompensated heart failure: Status: Acute (2) Pneumonia: Status: Acute (3) Acalculous cholecystitis: Status: Acute Assessment and Plan: hospital d#4 44yo F with HFrEF/NICM, HTN, JONI, obesity presenting with weight gain,edema, dyspnea, cough, and RUQ pain admitted for ADHF with question of acalculous cholecystitis and pneumonia # ADHF, acute/chronic HFrEF, nonischemic cardiomyopathy - resumed bumetanide infusion, Entresto at starting dose given hypotension; carvedilol + spironolactone still on hold; will give 1 dose PO metolazone; monitor BMP, BNP, Mg, I/O - Cardiology following # NSVT # sinus pause - replete Mg/K, Cardiology to discuss AICD with EP # hypo K - replete # acute acalculous cholecystitis, not - HIDA scan argues against cholecystitis, d/c'ed pip/miranda # possible pneumonia with hemoptysis - resume ABX per Pulmonology-ceftriaxone + doxycycline d#3; repeat CXR in 2d, SARS-CoV2 neg x2, UAgs pending # JONI - CPAP as per Pulmonology # morbid obesity - weight loss # tobacco abuse - NRT # VTE ppx - SCDs; in the presence of hemoptysis, will hold off on heparinoids
[2020-06-07] MEDS: Bumetanide 25 MG in Container,Empty 0 ML IVCONT (18:29)
[2020-06-07 19:16] VITALS: BP 112/66; PULSE 80; RESP 16; TEMP 36.5; O2SAT 100
[2020-06-08] VITALS (7 sets, daily range): BP systolic 90–145; BP diastolic 61–78; PULSE 69–82; RESP 18–20; TEMP 36.7–37.1; O2SAT 96–100; BMI 48.9
--- NOTE | 2020-06-08 02:16 | PC.NURSE ---
Pt complaining of mid abdominal pain that she states as been getting worse throughout hospital stay. Pt refusing pain medication. Alternative pain relief methods offered, pt declined. Pt mildly agitated and refusing IV placement and IV bumex. Pt educated on the importance of IV bumex. Pt stated she no longer wants the IV running. Bumex stopped at 0200. Dr Gutierrez notified. No new orders at this time. Will continue to reeducate patient and address pain management.
[2020-06-08 05:31] LABS: Anion Gap 18 (12-20); Blood Urea Nitrogen 30 mg/dL (9-16); Calcium 9.6 mg/dL (8.4-10.2); Carbon Dioxide 30 mmol/L (22-29); Chloride 89 mmol/L (96-108); Estimated Glomerular Filt Rate > 60; Glucose Random 107 mg/dL (60-115); Magnesium 1.7 mg/dL (1.6-2.6); Potassium 3.4 mmol/L (3.3-5.1); Sodium 134 mmol/L (135-145)
[2020-06-08 05:34] LABS: B Type Natriuretic Peptide 133 pg/mL (<100)
[2020-06-08 06:27] LABS: Procalcitonin 0.06 ng/mL
--- NOTE | 2020-06-08 09:18 | PM.PNPUL ---
Subjective Subjective Date of Service: 06/08/20 Interval history: The patient was seen and examined. Overall she is doing okay. Still complaining of the pleuritic right-sided chest discomfort. Also on the shoulder and also in the right upper quadrant of the abdomen. Moderate severity. Her white counts little decreased. At nighttime she did use the CPAP. Still getting used to it. She was able to tolerated. I did decrease the pressure down to for minimum in order for her to tolerate a little better initially. Objective Data Labs CBC & Chem 7: 06/07/20 06:19 06/08/20 04:07 Labs: Laboratory Results - last 24 hr 06/08/20 06/08/20 06/08/20 04:07 04:07 04:07 Sodium 134 L Potassium 3.4 Chloride 89 L Carbon Dioxide 30 H Anion Gap 18 BUN 30 H Creatinine 0.86 Estim Creat Clear Calc 100.0 Estimated GFR > 60 Random Glucose 107 Calcium 9.6 D Magnesium 1.7 B-Natriuretic Peptide 133 H Procalcitonin 0.06 Microbiology Microbiology Results: Microbiology 06/04/20 17:00 Blood - Venous Blood Culture - Preliminary No growth after 48 hours. 06/04/20 16:53 Blood - Venous Blood Culture - Preliminary No growth after 48 hours. Review of Systems Constitutional: Reports daytime sleepiness and Denies night sweats Denies change in voice, Denies lip swelling, Denies mouth pain, Reports nasal congestion, Reports nasal discharge and Denies tongue swelling Cardiovascular: Denies chest pain Respiratory: Reports cough, Reports hemoptysis, Reports excessive phlegm production, Reports pain on inspiration and Reports pain with cough Gastrointestinal: Denies abdominal pain Musculoskeletal: Denies no additional musculoskeletal complaints Denies Neuro-related abnormal movements Psychiatric: Denies no additional psychiatric complaints Hematologic/Lymphatic: Denies easy bleeding and Denies lymphadenopathy Allergic/Immunologic: Denies lip swelling and Denies tongue swelling Physical Exam Vital Signs: Vital Signs: Last Vital Signs Temp 98.2 F 06/08/20 07:50 Pulse 72 06/08/20 07:50 Resp 18 06/08/20 07:50 BP 122/69 06/08/20 07:50 Pulse Ox 96 06/08/20 07:50 Body Mass Index 48.9 Const: General: alert Neck: Neck: Yes normal visual inspection, Yes full ROM and Yes no lymphadenopathy Chest: Chest palpation & inspection: normal inspection of the chest Resp: Auscultation: diminished lung sounds Cardio: Rate: regular rate Rhythm: regular rhythm Heart sounds: S1 normal heart sound present and S2 normal heart sound present GI: Palpation (GI): Soft to palpation and nontender Auscultation: normal bowel sounds Skin: General skin exam: rashes and/or lesions noted Assessment and Plan Assessment and plan (1) Pneumonia: Status: Acute (2) JONI (obstructive sleep apnea): Status: Acute Assessment and Plan: Continue CPAP therapy The antibiotic regimen Repeat chest x-ray tomorrow Time Spent With Patient Time: Total time spent is greater than 50% in coordination of care (as documented) at patient's floor/unit and/or counseling patient: Time with patient: 15 - 24 minutes
--- NOTE | 2020-06-08 10:17 | PM.PNCARD ---
Subjective Subjective Date of Service: 06/08/20 Interval history: She still complains of some abdominal pain but shortness of breath seems slightly better. Improved leg swelling. She seems to be diuresing. Review of Systems Review of Systems Yes all other systems are reviewed and are negative Cardiovascular: Reports as per HPI, Reports no additional cardiovascular complaints, Denies acrocyanosis, Denies cool extremities, Denies painful fingertips, Denies chest pain, Denies chest pain at rest, Denies diaphoresis, Denies syncope, Denies irregular heart rhythm, Denies claudication, Denies leg edema, Denies lightheadedness, Denies palpitations and Reports dyspnea Respiratory: Reports dyspnea Denies syncope Endocrine: Denies palpitations Physical Exam Vital Signs: Last Vital Signs Temp 98.2 F 06/08/20 07:50 Pulse 72 06/08/20 07:50 Resp 18 06/08/20 07:50 BP 122/69 06/08/20 07:50 Pulse Ox 96 06/08/20 07:50 Body Mass Index 48.9 Const General: cooperative, comfortable and no acute distress Orientation/consciousness: patient oriented x3 HENPA Other: Unremarkable Neck Neck: Yes normal visual inspection Chest Chest palpation & inspection: normal inspection of the chest Resp Auscultation: crackles (At lung bases) and no wheezes Cardio Jugular venous distension: no JVD Palpation: normal PMI Heart sounds: S1 normal heart sound present, S2 normal heart sound present, no gallops, no murmurs and no rubs GI Palpation (GI): Soft to palpation Back/Spine/Pelvis Other: unremarkable Skin General skin exam: no rashes or lesions noted Neuro General: patient oriented x3 Extrem General: Yes edema (1+) Psych Mental Status: mental status grossly normal Results Labs and Meds Result diagrams: 06/07/20 06:19 06/08/20 04:07 Lab results: Laboratory Results - last 24 hr 06/08/20 06/08/20 06/08/20 04:07 04:07 04:07 Sodium 134 L Potassium 3.4 Chloride 89 L Carbon Dioxide 30 H Anion Gap 18 BUN 30 H Creatinine 0.86 Estim Creat Clear Calc 100.0 Estimated GFR > 60 Random Glucose 107 Calcium 9.6 D Magnesium 1.7 B-Natriuretic Peptide 133 H Procalcitonin 0.06 Progress Note: A&P Assessment and plan (1) Acute on chronic HFrEF (heart failure with reduced ejection fraction): Status: Acute (2) Essential hypertension: Status: Acute (3) Morbid obesity: Status: Acute (4) JONI (obstructive sleep apnea): Status: Acute Assessment and Plan: Last echocardiogram from January 2020 with LVEF 25-30%. May stop the Bumex drip and changed to b.i.d.. Additional metolazone. Back on Entresto at a lower dose. She is also back on spironolactone. Coreg is on hold due to pauses on telemetry and dizziness symptoms. Discussed with electrophysiology and plans for ICD in the near future. Then will resume the Coreg. Cardiac catheterization from 2019-no significant coronary disease. All labs including troponins, cardiac BNP reviewed. Fall Risk Details Current Medications: Current Medications Generic Name Dose Route Start Last Admin Trade Name Freq PRN Reason Stop Dose Admin Acetaminophen 650 mg 06/04/20 17:35 06/06/20 03:40 Acetaminophen 325 Mg Tablet PO 650 mg Q6H PRN Administration fever or pain Cyclobenzaprine HCl 5 mg 06/08/20 10:16 Cyclobenzaprine Hcl 5 Mg Tablet PO TID PRN R shoulder pain/muscle spasm Docusate Sodium 100 mg 06/04/20 17:35 Docusate Sodium 100 Mg Capsule PO BID PRN Constipation Doxycycline Hyclate 100 mg 06/07/20 09:15 06/07/20 20:18 Doxycycline Hyclate 100 Mg Tablet PO 100 mg Q12H JOSTIN Administration Bumetanide 25 mg/ IV 100 mls @ 2 mls/hr 06/06/20 19:00 06/08/20 02:00 Miscellaneous Supplies IVCONT 0 mg/hr .Q24H JOSTIN 0 mls/hr Infusion 0.5 MG/HR Ceftriaxone Sodium 1 gm/ 50 mls @ 100 mls/hr 06/07/20 09:15 06/07/20 11:01 Sodium Chloride IV Infused Q24H JOSTIN Infusion Loratadine 10 mg 06/05/20 09:00 06/07/20 08:27 Loratadine 10 Mg Tablet PO 10 mg DAILY JOSTIN Administration Metolazone 5 mg 06/08/20 09:00 Metolazone 5 Mg Tablet PO DAILY JOSTIN Nicotine Polacrilex 4 mg 06/04/20 18:01 06/06/20 03:46 Nicotine Polacrilex 4 Mg Lozenge BUCCAL 4 mg Q2H PRN Administration Nicotine Cravings Ondansetron HCl 4 mg 06/04/20 17:35 Ondansetron Hcl 4 Mg/2 Ml Vial IVPUSH Q8H PRN Nausea and Vomiting Pharmacy Consult 1 each 06/04/20 16:43 Consult Rx Perform Med Rec MISCELLANE ONCE PRN Consult order Sacubitril/Valsartan 1 tab 06/07/20 10:30 06/07/20 20:18 Sacubitril/Valsartan 1 Tab Tablet PO 1 tab BID JOSTIN Administration Protocol Sodium Chloride 3 ml 06/05/20 00:00 06/08/20 10:06 0.9 % Sodium Chloride Flush 3 Ml Syringe IVFLUSH Not Given QSHIFT JOSTIN Spironolactone 50 mg 06/05/20 09:00 06/05/20 12:02 Spironolactone 25 Mg Tablet PO 50 mg DAILY JOSTIN Administration Protocol Time Spent With Patient Time: Total time spent is greater than 50% in coordination of care (as documented) at patient's floor/unit and/or counseling patient: Time with patient: less than 15 minutes
[2020-06-08] MEDS: Loratadine 10 MG TABLET PO (10:19)
[2020-06-08] MEDS: Sacubitril/Valsartan 24/26 1 TAB TABLET PO ×2 (10:20→21:34)
--- NOTE | 2020-06-08 12:01 | MHC.CM.PN ---
dc plan remain s home with hvns when pt medically ready for dc
[2020-06-08] MEDS: Cyclobenzaprine HCl 5 MG TABLET PO (12:12)
[2020-06-08] MEDS: metOLazone 5 MG TABLET PO (12:12)
[2020-06-08] MEDS: cefTRIAXone sodium 1 GM in 0.9 % Sodium Chloride 50 ML IV (12:21)
--- NOTE | 2020-06-08 14:32 | P.PNIM_ITS ---
Subjective Subjective Date of Service: 06/08/20 Interval History: Pulled out IV overnight. C/o R shoulder pain. Still c/o abd bloating, significant edema, and dyspnea. Physical Exam Vital Signs: Vital Signs: Last Vital Signs Temp 98.7 F 06/08/20 11:19 Pulse 69 06/08/20 11:19 Resp 20 06/08/20 11:19 BP 138/70 06/08/20 11:19 Pulse Ox 96 06/08/20 11:19 Body Mass Index 48.9 Gen: short of breath HEENT: sclera anicteric, moist mucus membranes Neck: supple Lungs: diminished bilaterally at bases Heart: regular rate and rhythm, no murmurs Abd: soft, obese, tender, extensive abd wall edema Ext: 2+ pitting LE edema Skin: warm/well-perfused Neuro: alert and oriented x3, no focal findings Psych: appropriate affect Objective Data Current Medications Generic Name Dose Route Start Last Admin Trade Name Freq PRN Reason Stop Dose Admin Acetaminophen 650 mg 06/04/20 17:35 06/06/20 03:40 Acetaminophen 325 Mg Tablet PO 650 mg Q6H PRN Administration fever or pain Cyclobenzaprine HCl 5 mg 06/08/20 10:16 06/08/20 12:12 Cyclobenzaprine Hcl 5 Mg Tablet PO 5 mg TID PRN Administration R shoulder pain/muscle spasm Docusate Sodium 100 mg 06/04/20 17:35 Docusate Sodium 100 Mg Capsule PO BID PRN Constipation Doxycycline Hyclate 100 mg 06/07/20 09:15 06/08/20 10:19 Doxycycline Hyclate 100 Mg Tablet PO 100 mg Q12H JOSTIN Administration Bumetanide 25 mg/ IV 100 mls @ 2 mls/hr 06/06/20 19:00 06/08/20 02:00 Miscellaneous Supplies IVCONT 0 mg/hr .Q24H JOSTIN 0 mls/hr Infusion 0.5 MG/HR Ceftriaxone Sodium 1 gm/ 50 mls @ 100 mls/hr 06/07/20 09:15 06/08/20 13:02 Sodium Chloride IV Infused Q24H JOSTIN Infusion Loratadine 10 mg 06/05/20 09:00 06/08/20 10:19 Loratadine 10 Mg Tablet PO 10 mg DAILY JOSTIN Administration Metolazone 5 mg 06/08/20 09:00 06/08/20 12:12 Metolazone 5 Mg Tablet PO 5 mg DAILY JOSTIN Administration Nicotine Polacrilex 4 mg 06/04/20 18:01 06/06/20 03:46 Nicotine Polacrilex 4 Mg Lozenge BUCCAL 4 mg Q2H PRN Administration Nicotine Cravings Ondansetron HCl 4 mg 06/04/20 17:35 Ondansetron Hcl 4 Mg/2 Ml Vial IVPUSH Q8H PRN Nausea and Vomiting Pharmacy Consult 1 each 06/04/20 16:43 Consult Rx Perform Med Rec MISCELLANE ONCE PRN Consult order Sacubitril/Valsartan 1 tab 06/07/20 10:30 06/08/20 10:20 Sacubitril/Valsartan 1 Tab Tablet PO 1 tab BID [facility] Administration Protocol Sodium Chloride 3 ml 06/05/20 00:00 06/08/20 10:06 0.9 % Sodium Chloride Flush 3 Ml Syringe IVFLUSH Not Given QSHIFT [facility] Spironolactone 50 mg 06/05/20 09:00 06/05/20 12:02 Spironolactone 25 Mg Tablet PO 50 mg DAILY JOSTIN Administration Protocol Labs CBC & Chem 7: 06/07/20 06:19 06/08/20 04:07 Labs: Laboratory Results - last 24 hr 06/08/20 06/08/20 06/08/20 04:07 04:07 04:07 Sodium 134 L Potassium 3.4 Chloride 89 L Carbon Dioxide 30 H Anion Gap 18 BUN 30 H Creatinine 0.86 Estim Creat Clear Calc 100.0 Estimated GFR > 60 Random Glucose 107 Calcium 9.6 D Magnesium 1.7 B-Natriuretic Peptide 133 H Procalcitonin 0.06 Microbiology Microbiology Results: Microbiology 06/04/20 17:00 Blood - Venous Blood Culture - Preliminary No growth after 48 hours. 06/04/20 16:53 Blood - Venous Blood Culture - Preliminary No growth after 48 hours. Assessment and Plan (1) Acute decompensated heart failure: Status: Acute (2) Pneumonia: Status: Acute (3) Acalculous cholecystitis: Status: Acute Assessment and Plan: hospital d#4 44yo F with HFrEF/NICM, HTN, JONI, obesity presenting with weight gain,edema, dyspnea, cough, and RUQ pain admitted for ADHF with question of acalculous cholecystitis and pneumonia # ADHF, acute/chronic HFrEF, nonischemic cardiomyopathy - resume bumetanide infusion, give PO metolazone; Entresto at starting dose given hypotension; resume spironolactone; monitor BMP, BNP, Mg, I/O - Cardiology following # NSVT # sinus pause - repleted Mg + K - hold carvedilol until she has an AICD/pacer, to be arranged with EP as outpt per Cardiology # hypo K - repleted # acute acalculous cholecystitis, not - HIDA scan argues against cholecystitis # possible pneumonia with hemoptysis - resume ABX per Pulmonology-ceftriaxone + doxycycline d#4; repeat CXR tomorrow, SARS-CoV2 neg x2, UAgs pending # JONI - CPAP as per Pulmonology # morbid obesity - weight loss # tobacco abuse - NRT # VTE ppx - SCDs; in the presence of hemoptysis, will hold off on heparinoids
[2020-06-08] MEDS: 0.9 % Sodium Chloride Flush 3 ML SYRINGE IVFLUSH (21:39)
[2020-06-09] VITALS: BP 96/53; PULSE 84; RESP 20; TEMP 36.6; O2SAT 98
--- NOTE | 2020-06-09 00:30 | PC.NURSE ---
Pt a&ox4, VSS, report pain in R shoulder, medicated with tylenol and flexeril, reports poor effect. LS dim, exp wheeze noted, maintaining O2 on RA CPAP in use at HS. Continent of bowel and bladder, +BS, LBM 06/07/20. pure wick in place per pt request, reports urge incontinence. Skin intact. New IV access placed in R wrist, conts on bumex gtt and IV ABX therapy. Stand by asst OOB to chair.
[2020-06-09 04:00] VITALS: BP 108/58; PULSE 78; RESP 20; TEMP 36.6; O2SAT 96
[2020-06-09 06:00] VITALS: BMI 48.7
[2020-06-09 06:25] LABS: MANUAL DIFF FLAG NO
[2020-06-09 06:38] LABS: Basophils Percent Auto 0.3 % (0-2); Eosinophils Absolute Auto 0.2 X10*3/uL (0.0-0.4); Eosinophils Percent Auto 1.5 % (0-4); Hematocrit 52.4 % (37-47); Hemoglobin 16.5 g/dl (12.0-16.0); Imm Gran Abs Auto 0.06 X10*3/uL (0.00-0.03); Imm Gran Pct Auto 0.5 % (0.0-0.4); Lymphocytes Percent Auto 17.2 % (20-40); Mean Corpuscular HGB Conc 31.5 g/dl (31.0-35.0); Mean Corpuscular Hemoglobin 25.5 pg (27.0-33.0); Mean Platelet Volume 10.5 fL (9.4-12.3); Monocytes Absolute Auto 0.9 X10*3/uL (0.1-1.2); Monocytes Percent Auto 7.5 % (2-11); Neutrophils Absolute Auto 8.4 X10*3/uL (2.0-8.3); Platelet Count 334 X10*3/uL (160-400); Red Blood Count 6.47 X10*6/uL (4.20-5.50); Red Cell Distribution Width 18.1 % (11.0-16.0); White Blood Count 11.5 X10*3/uL (4.8-10.8)
[2020-06-09 07:11] LABS: Anion Gap 22 (12-20); Blood Urea Nitrogen 52 mg/dL (9-16); Calcium 10.1 mg/dL (8.4-10.2); Carbon Dioxide 31 mmol/L (22-29); Chloride 86 mmol/L (96-108); Creatinine Clr Calc Pharmacy 78.8; Estimated Glomerular Filt Rate 54; Glucose Random 120 mg/dL (60-115); Magnesium 1.8 mg/dL (1.6-2.6); Potassium 3.1 mmol/L (3.3-5.1); Sodium 136 mmol/L (135-145)
[2020-06-09 07:12] LABS: B Type Natriuretic Peptide 84 pg/mL (<100)
[2020-06-09 08:00] VITALS: BP 110/59; PULSE 78; RESP 20; TEMP 37; O2SAT 93
[2020-06-09] MEDS: 0.9 % Sodium Chloride Flush 3 ML SYRINGE IVFLUSH (09:02)
[2020-06-09] MEDS: Loratadine 10 MG TABLET PO (09:03)
[2020-06-09] MEDS: Sacubitril/Valsartan 24/26 1 TAB TABLET PO (09:03)
[2020-06-09] MEDS: Spironolactone 25 MG TABLET 50 MG PO (09:03)
[2020-06-09] MEDS: metOLazone 5 MG TABLET PO (09:03)
[2020-06-09] MEDS: cefTRIAXone sodium 1 GM in 0.9 % Sodium Chloride 50 ML IV (09:04)
[2020-06-09] MEDS: Potassium Chloride ER 20 MEQ TAB.ER.PRT 40 MEQ PO (09:08)
[2020-06-09 11:45] VITALS: BP 125/66; PULSE 80; RESP 18; TEMP 36.6; O2SAT 94
--- NOTE | 2020-06-09 12:06 | MHC.CM.PN ---
spoke with bi /respiratory,he will be arranging for a new cpap for pt
--- NOTE | 2020-06-09 12:07 | PM.PNCARD ---
Subjective Subjective Date of Service: 06/09/20 Interval history: She has some shoulder discomfort, but breathing seems improved. Leg swelling is improved. Review of Systems Review of Systems Yes all other systems are reviewed and are negative Cardiovascular: Reports as per HPI, Reports no additional cardiovascular complaints, Denies acrocyanosis, Denies cool extremities, Denies painful fingertips, Denies chest pain, Denies chest pain at rest, Denies diaphoresis, Denies syncope, Denies irregular heart rhythm, Denies claudication, Denies leg edema, Denies lightheadedness, Denies palpitations and Reports dyspnea Respiratory: Reports dyspnea Denies syncope Endocrine: Denies palpitations Physical Exam Vital Signs: Last Vital Signs Temp 97.8 F 06/09/20 11:45 Pulse 80 06/09/20 11:45 Resp 18 06/09/20 11:45 BP 125/66 06/09/20 11:45 Pulse Ox 94 06/09/20 11:45 Body Mass Index 48.7 Const General: cooperative, comfortable and no acute distress Orientation/consciousness: patient oriented x3 HENAR Other: Unremarkable Neck Neck: Yes normal visual inspection Chest Chest palpation & inspection: normal inspection of the chest Resp Auscultation: crackles (At lung bases) and no wheezes Cardio Jugular venous distension: no JVD Palpation: normal PMI Heart sounds: S1 normal heart sound present, S2 normal heart sound present, no gallops, no murmurs and no rubs GI Palpation (GI): Soft to palpation Back/Spine/Pelvis Other: unremarkable Skin General skin exam: no rashes or lesions noted Neuro General: patient oriented x3 Extrem General: Yes edema (1+) Psych Mental Status: mental status grossly normal Results Labs and Meds Result diagrams: 06/09/20 05:34 06/09/20 05:34 Lab results: Laboratory Results - last 24 hr 06/09/20 06/09/20 06/09/20 05:34 05:34 05:34 WBC 11.5 H RBC 6.47 H Hgb 16.5 H Hct 52.4 H MCV 81.0 MCH 25.5 L MCHC 31.5 RDW 18.1 H Plt Count 334 MPV 10.5 Immature Gran % (Auto) 0.5 H Neut % (Auto) 73.0 Lymph % (Auto) 17.2 L [place] % (Auto) 7.5 Eos % (Auto) 1.5 Baso % (Auto) 0.3 Lymph # (Auto) 2.0 [place] # (Auto) 0.9 Eos # (Auto) 0.2 Baso # (Auto) 0.0 Abs Immat Gran (auto) 0.06 H Absolute Neuts (auto) 8.4 H Absolute Nucleated RBC 0.000 Nucleated RBC % (auto) 0.0 Sodium 136 Potassium 3.1 L Chloride 86 L Carbon Dioxide 31 H Anion Gap 22 H BUN 52 H D Creatinine 1.10 Estim Creat Clear Calc 78.8 Estimated GFR 54 Random Glucose 120 H Calcium 10.1 Magnesium 1.8 B-Natriuretic Peptide 84 Imaging Radiologist's impression: Impressions Chest X-Ray 06/09/20 08:00 IMPRESSION: 1. Groundglass opacity right lateral base similar to CT 06/04/2020. 2. Subsegmental atelectasis right mid zone. 3. Small bibasilar effusions decreased. Progress Note: A&P Assessment and plan (1) Acute on chronic HFrEF (heart failure with reduced ejection fraction): Status: Acute (2) Essential hypertension: Status: Acute (3) Morbid obesity: Status: Acute (4) JONI (obstructive sleep apnea): Status: Acute Assessment and Plan: Last echocardiogram from January 2020 with LVEF 25-30%. May change to oral diuretics. Back on Entresto at a lower dose. She is also back on spironolactone. Coreg is on hold due to pauses on telemetry and dizziness symptoms. Discussed with electrophysiology and plans for ICD in the near future. Then will resume the Coreg. Strongly advised to stop smoking completely. Also discussed with her over the phone. Cardiac catheterization from 2019-no significant coronary disease. All labs including troponins, cardiac BNP reviewed. Fall Risk Details Current Medications: Current Medications Generic Name Dose Route Start Last Admin Trade Name Freq PRN Reason Stop Dose Admin Acetaminophen 650 mg 06/04/20 17:35 06/06/20 03:40 Acetaminophen 325 Mg Tablet PO 650 mg Q6H PRN Administration fever or pain Bumetanide 2 mg 06/09/20 17:00 Bumetanide 1 Mg Tablet PO BID@0800,1700 [facility] Protocol Cyclobenzaprine HCl 5 mg 06/08/20 10:16 06/08/20 12:12 Cyclobenzaprine Hcl 5 Mg Tablet PO 5 mg TID PRN Administration R shoulder pain/muscle spasm Docusate Sodium 100 mg 06/04/20 17:35 Docusate Sodium 100 Mg Capsule PO BID PRN Constipation Doxycycline Hyclate 100 mg 06/07/20 09:15 06/09/20 09:02 Doxycycline Hyclate 100 Mg Tablet PO 100 mg Q12H JOSTIN Administration Ceftriaxone Sodium 1 gm/ 50 mls @ 100 mls/hr 06/07/20 09:15 06/09/20 09:56 Sodium Chloride IV Infused Q24H JOSTIN Infusion Loratadine 10 mg 06/05/20 09:00 06/09/20 09:03 Loratadine 10 Mg Tablet PO 10 mg DAILY JOSTIN Administration Metolazone 5 mg 06/08/20 09:00 06/09/20 09:03 Metolazone 5 Mg Tablet PO 5 mg DAILY JOSTIN Administration Nicotine Polacrilex 4 mg 06/04/20 18:01 06/06/20 03:46 Nicotine Polacrilex 4 Mg Lozenge BUCCAL 4 mg Q2H PRN Administration Nicotine Cravings Ondansetron HCl 4 mg 06/04/20 17:35 Ondansetron Hcl 4 Mg/2 Ml Vial IVPUSH Q8H PRN Nausea and Vomiting Pharmacy Consult 1 each 06/04/20 16:43 Consult Rx Perform Med Rec MISCELLANE ONCE PRN Consult order Potassium Chloride 40 meq 06/09/20 09:00 06/09/20 09:08 Potassium Chloride Er 20 Meq Tab.Er.Prt PO 06/09/20 21:01 40 meq BID JOSTIN Administration Sacubitril/Valsartan 1 tab 06/07/20 10:30 06/09/20 09:03 Sacubitril/Valsartan 24/ 1 Tab Tablet PO 1 tab BID JOSTIN Administration Protocol Sodium Chloride 3 ml 06/05/20 00:00 06/09/20 09:02 0.9 % Sodium Chloride Flush 3 Ml Syringe IVFLUSH 3 ml QSHIFT JOSTIN Administration Spironolactone 50 mg 06/05/20 09:00 06/09/20 09:03 Spironolactone 25 Mg Tablet PO 50 mg DAILY JOSTIN Administration Protocol Time Spent With Patient Time: Total time spent is greater than 50% in coordination of care (as documented) at patient's floor/unit and/or counseling patient: Time with patient: less than 15 minutes
--- NOTE | 2020-06-09 12:20 | W.MHC.F2F ---
Service Date Service Date: 06/09/20 Encounter Date of encounter: 06/09/20 Reasons for Services Signs and symptoms assessed: CHF Reason for retirement: medication management, medication treatment and teach disease management Reason for physical therapy: home safety and mobility, therapeutic exercises, gait/transfer training, assess need for DME, ADL training and energy conservation MD Overseeing Care: Elin Onofre Homebound: Leaving the home is medically contraindicated at this time without the asist of a device and/or another person due th the listed conditions above and below. Reason homebound: weakness related to hospital stay Certification: Based on the above findings, I certify that this patient is confined to the home and needs intermittent retirement care, physical therapy and/or speech therapy, or continues to need occupational therapy. The patient is under my care, and I have initiated the establishment of the plan of care. The patient will be followed by a physician who will periodically review the plan of care.
--- NOTE | 2020-06-09 12:33 | MHC.CM.PN ---
pt is dcd hvns notified ,bi respiratory arranging for cpap
--- NOTE | 2020-06-09 12:40 | P.DS_ITS ---
DS: Providers Provider Date of Service: 06/09/20 Date of admission: 06/04/20 17:35 Primary care physician: Elin Onofre MD Consults: 06/04/20 17:35 Consult to Cardiology Routine Consulting Provider: Ruben Patel Reason for consultation: ADHF Consult to General Surgery Routine Consulting Provider: [facility] [place] General Surgeons Reason for consultation: acalculous cholecystitis 06/06/20 12:43 Consult to Pulmonology Routine Consulting Provider: [facility] Pulmonology Services Reason for consultation: JONI, severe HFrEF, sinus pauses DS: Diagnosis Discharge Diagnosis (1) Acute on chronic HFrEF (heart failure with reduced ejection fraction): Status: Acute (2) Essential hypertension: Status: Acute (3) Morbid obesity: Status: Acute (4) JONI (obstructive sleep apnea): Status: Acute (5) Pneumonia: Status: Acute (6) Nonischemic cardiomyopathy: Status: Acute (7) NSVT (nonsustained ventricular tachycardia): Status: Acute (8) Sinus pause: Status: Acute (9) Acute decompensated heart failure: Status: Acute (10) Tobacco abuse: Status: Acute DS: Medications Discharge Medications Home Medications: Home Medications Medication Instructions Recorded Confirmed spironolactone 50 mg tablet 50 mg PO DAILY 02/11/20 06/04/20 cetirizine 1 tab PO DAILY 06/04/20 06/04/20 Previous Rx's Medication Instructions Recorded blood pressure monitor #1 ea 02/11/20 metolazone 2.5 mg tablet 2.5 mg PO .weekly #20 tab 02/11/20 bumetanide 2 mg tablet 2 mg PO BID #60 tab 03/16/20 cefuroxime axetil 500 mg PO BID #4 tab 06/09/20 doxycycline hyclate 100 mg PO Q12H #4 tab 06/09/20 nicotine (polacrilex) 4 mg BUCCAL Q2H PRN #100 ea 06/09/20 sacubitril-valsartan [Entresto] 1 tab PO BID #60 tab 06/09/20 DS: Summary Hospital Course Hospital Course: From my admission history and physical, 06/04/2020: Ms Gonzales is a 44 year-old Faroese- and Slovenian-speaking woman with severe nonischemic cardiomyopathy (LVEF 25% 12/10/20) followed by Abdias Yu here at [facility], essential hypertension, JONI on CPAP, and morbid obesity who presents with approximately 3 months of worsening swelling of her legs and abdomen, nearly 50- pound weight gain (dry weight approximately 220 lb), increasing dyspnea on exertion, and 3-pillow orthopnea. She also notes an intermittent dry cough over the last month or so, and today coughed up some blood. She denies fever, nasal congestion, anosmia, or sore throat. She denies contact with any COVID-19 cases. Her , with whom she lives, had his 2nd dose of the COVID-19 vaccine today; the patient has not had any COVID-19 vaccination. Over the last 2 weeks, she has also developed severe pain in her right upper quadrant, just un chilo her ribcage. The pain is constant and not exacerbated by eating fatty foods. It is associated with nausea and bloating. In the ED, she was noted to be severely hypertensive with BP 200/130; currently 170/116. Room air SaO2 was 100% EKG showed NSR with LAE and LVH with strain pattern. CXR demonstrated cardiac enlargement with asymmetric opacity in the right mid-to lower-lung field concerning for asymmetric pulmonary edema or infiltrate or layering effusion, with a small left-sided effusion. CT of the abdomen demonstrated bibasilar groundglass opacities of the lungs, an anterior RLL infiltrate, enhancement and thickening of the gallbladder with surrounding fluid suspicious for acalculous cholecystitits, stable periumbilical hernias, and haziness of the abdominal wall. She was given about 500 mL of normal saline and a dose of IV piperacillin/tazobactam. At that point, the hospitalist team was called to evaluate and admit the patient. The patient was [place] [facility] She was diuresed with bumetanide infusion and also given IV chlorothiazide, then PO metolazone. Potassium was repleted. She became briefly hypotensive, so Entresto, carvedilol, and spironolactone were held. Eventually, spironolactone was resumed and Entresto also resumed but at a lower dosage. She had some episodes sinus pauses as well as 1 episode of NSVT. Carvedilol was not restarted and should be held until she gets an AICD/pacer, which will be arranged by her Cardiology practice once her pneumonia resolves. She was transitioned back to PO bumetanide and metolazone upon discharge. As for pneumonia, she was treated with ceftriaxone and doxycycline and transition to cefuroxime plus doxycycline upon discharge; she requires 2 more days of antibiotic therapy. Cultures were negative and 2 separate molecular tests for SARS-CoV-2 were negative. HIDA scan argued against cholecystitis and her abdominal symptoms improved as the pneumonia was treated. She was seen by pulmonology and needs a new CPAP machine which will be arranged. Smoking cessation was counseled and she was prescribed NRT upon discharge. She was discharged home with VNA services and should have repeat set of laboratory studies including BNP, BMP, and magnesium tomorrow. She will need to follow up with Cardiology within a week and with Pulmonology within a month. Time Spent with Patient Time attestation: Total time spent providing and/or coordinating discharge services: 45 Discharge coordination time: Greater than 30 minutes Physical Exam Vital Signs: Vital Signs: Last Vital Signs Temp 97.8 F 06/09/20 11:45 Pulse 80 06/09/20 11:45 Resp 18 06/09/20 11:45 BP 125/66 06/09/20 11:45 Pulse Ox 94 06/09/20 11:45 Body Mass Index 48.7 Gen: NAD HEENT: sclera anicteric, moist mucus membranes Neck: supple Lungs: clear bilaterally Heart: regular rate and rhythm, no murmurs Abd: soft, obese, non-tender Ext: no edema Skin: warm/well-perfused Neuro: alert and oriented x3, no focal findings Psych: appropriate affect DS: Data Data Completed and Pending Completed studies during hospitalization [Text1]: Laboratory Results WBC 11.5 X10*3/uL (4.8-10.8) H 06/09/20 05:34 RBC 6.47 X10*6/uL (4.20-5.50) H 06/09/20 05:34 Hgb 16.5 g/dl (12.0-16.0) H 06/09/20 05:34 Hct 52.4 % (37-47) H 06/09/20 05:34 MCV 81.0 fL (80-98) 06/09/20 05:34 MCH 25.5 pg (27.0-33.0) L 06/09/20 05:34 MCHC 31.5 g/dl (31.0-35.0) 06/09/20 05:34 RDW 18.1 % (11.0-16.0) H 06/09/20 05:34 Plt Count 334 X10*3/uL (160-400) 06/09/20 05:34 MPV 10.5 fL (9.4-12.3) 06/09/20 05:34 Immature Gran % (Auto) 0.5 % (0.0-0.4) H 06/09/20 05:34 Neut % (Auto) 73.0 % (45-73) 06/09/20 05:34 Lymph % (Auto) 17.2 % (20-40) L 06/09/20 05:34 Prairie % (Auto) 7.5 % (2-11) 06/09/20 05:34 Eos % (Auto) 1.5 % (0-4) 06/09/20 05:34 Baso % (Auto) 0.3 % (0-2) 06/09/20 05:34 Lymph # (Auto) 2.0 X10*3/uL (1.2-4.9) 06/09/20 05:34 [place]irie # (Auto) 0.9 X10*3/uL (0.1-1.2) 06/09/20 05:34 Eos # (Auto) 0.2 X10*3/uL (0.0-0.4) 06/09/20 05:34 Baso # (Auto) 0.0 X10*3/uL (0.0-0.2) 06/09/20 05:34 Abs Immat Gran (auto) 0.06 X10*3/uL (0.00-0.03) H 06/09/20 05:34 Absolute Neuts (auto) 8.4 X10*3/uL (2.0-8.3) H 06/09/20 05:34 Absolute Nucleated RBC 0.000 X10*3/uL (0.0-0.012) 06/09/20 05:34 Nucleated RBC % (auto) 0.0 /100WBC (0.0-0.2) 06/09/20 05:34 PT 14.9 SEC (10.8-13.0) H 06/04/20 14:24 INR 1.3 (0.9-1.1) H 06/04/20 14:24 APTT 30.3 SEC (24.1-38.0) 06/04/20 14:24 Sodium 136 mmol/L (135-145) 06/09/20 05:34 Potassium 3.1 mmol/L (3.3-5.1) L 06/09/20 05:34 Chloride 86 mmol/L (96-108) L 06/09/20 05:34 Carbon Dioxide 31 mmol/L (22-29) H 06/09/20 05:34 Anion Gap 22 (12-20) H 06/09/20 05:34 BUN 52 mg/dL (9-16) H D 06/09/20 05:34 Creatinine 1.10 mg/dL (0.5-1.4) 06/09/20 05:34 Estim Creat Clear Calc 78.8 06/09/20 05:34 Estimated GFR 54 06/09/20 05:34 Random Glucose 120 mg/dL (60-115) H 06/09/20 05:34 Lactic Acid 1.2 mmol/L (0.5-2.0) 06/04/20 13:33 Calcium 10.1 mg/dL (8.4-10.2) 06/09/20 05:34 Magnesium 1.8 mg/dL (1.6-2.6) 06/09/20 05:34 Ferritin 82 ng/mL (10-250) 06/04/20 13:33 Total Bilirubin 1.7 mg/dL (0.0-1.0) H 06/04/20 13:33 AST 24 U/L (5-31) 06/04/20 13:33 ALT 22 U/L (0-31) 06/04/20 13:33 Alkaline Phosphatase 75 U/L (39-117) 06/04/20 13:33 Lactate Dehydrogenase 307 U/L (122-220) H 06/04/20 13:33 Troponin I High Sens 43.8 ng/L (<3.5-17.0) H 06/04/20 16:53 C-Reactive Protein 0.73 mg/dL (< or = 0.50) H 06/04/20 13:33 B-Natriuretic Peptide 84 pg/mL (<100) 06/09/20 05:34 Total Protein 6.7 g/dL (6.5-8.0) 06/04/20 13:33 Albumin 3.7 g/dL (3.5-5.0) 06/04/20 13:33 Lipase 8 U/L (8-78) 06/04/20 13:33 Procalcitonin 0.06 ng/mL 06/08/20 04:07 Urine Color YELLOW 06/04/20 20:17 Urine Appearance CLEAR 06/04/20 20:17 Urine pH 5.5 (5.0-8.0) 06/04/20 20:17 Ur Specific Le[place]on 1.015 (1.005-1.025) 06/04/20 20:17 Urine Protein 2+ MG/DL (NEG-TRACE) H 06/04/20 20:17 Urine Glucose (UA) NEG MG/DL (NEG) 06/04/20 20:17 Urine Ketones NEG MG/DL (NEG) 06/04/20 20:17 Urine Blood TRACE (NEG) 06/04/20 20:17 Urine Nitrite NEG (NEG) 06/04/20 20:17 Ur Leukocyte Esterase NEG (NEG) 06/04/20 20:17 Urine RBC 1-4 /HPF (0) 06/04/20 20:17 Urine WBC 0 /HPF (0-4) 06/04/20 20:17 Ur Squamous Epith Cells 1+ /LPF 06/04/20 20:17 Urine Bacteria NONE /LPF 06/04/20 20:17 Urine Test NEGATIVE (NEGATIVE) 06/04/20 20:17 Respiratory Panel Lund See Note 06/04/20 20:18 Adenovirus (Rapid PCR) Not Detected (Not Detect.) 06/04/20 20:18 B.pert (TEM-PCR) Not Detected (Not Detect.) 06/04/20 20:18 B.parapertussis DNA PCR Not Detected (Not Detect.) 06/04/20 20:18 C. pneumoniae DNA (PCR) Not Detected (Not Detect.) 06/04/20 20:18 Coronavirus OC43 (PCR) Not Detected (Not Detect.) 06/04/20 20:18 Coronavirus HKU1 (PCR) Not Detected (Not Detect.) 06/04/20 20:18 Coronavirus 229E (PCR) Not Detected (Not Detect.) 06/04/20 20:18 COVID-19 (ANABELLA) Negative (Negative) 06/04/20 13:20 COVID-19 Clin Com See Note 06/04/20 13:20 Coronavirus NL63 (PCR) Not Detected (Not Detect.) 06/04/20 20:18 Human Metapneumovir PCR Not Detected (Not Detect.) 06/04/20 20:18 Influenza A (RT-PCR) Not Detected (Not Detect.) 06/04/20 20:18 Influenza B (RT-PCR) Not Detected (Not Detect.) 06/04/20 20:18 M. pneumoniae (PCR) Not Detected (Not Detect.) 06/04/20 20:18 Parainfluenza 1 (PCR) Not Detected (Not Detect.) 06/04/20 20:18 Parainfluenza 2 (PCR) Not Detected (Not Detect.) 06/04/20 20:18 Parainfluenza 3 (PCR) Not Detected (Not Detect.) 06/04/20 20:18 Parainfluenza 4 (PCR) Not Detected (Not Detect.) 06/04/20 20:18 RSV (PCR) Not Detected (Not Detect.) 06/04/20 20:18 Entero/Rhino (PCR) Not Detected (Not Detect.) 06/04/20 20:18 SARS-CoV-2 RNA (RT-PCR) Not Detected (Not Detect.) 06/04/20 20:18 Impressions Abdomen/Pelvis CT 06/04/20 12:58 IMPRESSION: Right lateral small pleural effusions with bibasilar groundglass attenuation likely low-grade inflammation. Addition there is a right lower lobe anterior segment infiltrate. Mild cardiomegaly. Slight interval or dense area or enhancement in the gallbladder lumen with mild thickening and surrounding fluid suspicious for acalculus cholecystitis. Similar findings were seen on the previous exam 2019. Hepatic cyst is stable. Umbilical, supraumbilical and infraumbilical midline hernias containing fat. These are stable. Mild haziness in abdominal wall could be secondary to mild edema. There is minimal haziness in the parametrium bilaterally similar previous study. Bilateral sacroiliitis similar to previous study from 2019 Hepatobiliary Scan Nuclear Medicine 06/04/20 16:00 IMPRESSION: Normal hepatobiliary scintigraphy. Radiotracer accumulation in the gallbladder is strong evidence of a patent cystic duct. Normal gallbladder ejection fraction. Chest CT 06/04/20 16:39 IMPRESSION: Cardiomegaly and increased interstitial markings with bilateral pleural effusions. The most likely diagnosis is CHF with interstitial edema. Associated focal infiltrates in the right middle lobe and right lower lobe may be infectious. Nonspecific mediastinal nodes most likely reactive. Chest X-Ray 06/09/20 08:00 IMPRESSION: 1. Groundglass opacity right lateral base similar to CT 06/04/2020. 2. Subsegmental atelectasis right mid zone. 3. Small bibasilar effusions decreased. Labs on day of discharge: Laboratory Results - last 24 hr 06/09/20 06/09/20 06/09/20 05:34 05:34 05:34 WBC 11.5 H RBC 6.47 H Hgb 16.5 H Hct 52.4 H MCV 81.0 MCH 25.5 L MCHC 31.5 RDW 18.1 H Plt Count 334 MPV 10.5 Immature Gran % (Auto) 0.5 H Neut % (Auto) 73.0 Lymph % (Auto) 17.2 L [place] % (Auto) 7.5 Eos % (Auto) 1.5 Baso % (Auto) 0.3 Lymph # (Auto) 2.0 [place] # (Auto) 0.9 Eos # (Auto) 0.2 Baso # (Auto) 0.0 Abs Immat Gran (auto) 0.06 H Absolute Neuts (auto) 8.4 H Absolute Nucleated RBC 0.000 Nucleated RBC % (auto) 0.0 Sodium 136 Potassium 3.1 L Chloride 86 L Carbon Dioxide 31 H Anion Gap 22 H BUN 52 H D Creatinine 1.10 Estim Creat Clear Calc 78.8 Estimated GFR 54 Random Glucose 120 H Calcium 10.1 Magnesium 1.8 B-Natriuretic Peptide 84 Preliminary micro results at discharge 06/04/20 17:00 Blood Culture - Preliminary Blood - Venous No growth after 48 hours. 06/04/20 16:53 Blood Culture - Preliminary Blood - Venous No growth after 48 hours. Discharge Plan Discharge Patient Disposition: Home Health Service Discharge Diagnosis: CHF exacerbation, cardiomyopathy, pneumonia, obstructive sleep apnea Referrals: [facility] [Outside] - 1 Week Elin Onofre MD [Primary Care Provider] - 1 Week (Please call and schedule a follow up appointment.) Fred Velez MD [Physician] - 1 Week Abdias Yu MD [Physician] - 1 Week Discharge Medications: New doxycycline hyclate 100 mg Tablet 100 mg PO Q12H Qty: 4 RF: 0 Entresto 24-26 mg Tablet 1 tab PO BID Qty: 60 RF: 0 nicotine (polacrilex) 4 mg Mini Lozenge 4 mg buccal Q2H PRN (Reason: Nicotine Cravings) Qty: 100 RF: 0 cefuroxime axetil 500 mg tablet 500 mg PO BID Qty: 4 RF: 0 Continued bumetanide 2 mg tablet 2 mg PO BID Qty: 60 RF: 0 cetirizine 10 mg tablet 1 tab PO DAILY RF: 0 spironolactone 50 mg tablet 50 mg PO DAILY RF: 0 metolazone 2.5 mg tablet 2.5 mg PO .weekly Qty: 20 RF: 5 (DME) blood pressure monitor [Blood Pressure Kit] Kit See Rx Instructions .ROUTE .MEDSUPPLY Qty: 1 RF: 0 Discontinued bumetanide 2 mg tablet 1 tab PO BID RF: 0 carvedilol 25 mg tablet 25 mg PO BID RF: 0 Discharge Orders: Discharge Order (Routine); Ordered 06/09/20 Ordered By: Yoselin Brower Diet: low salt diet Activity on Discharge: As tolerated Stand Alone Forms: Patient Portal Discharge page Other Ambulatory Orders: Basic Metabolic Panel (Routine) Timeframe: 1 Day Facility: [facility] - Location: Laboratory Ordered By: Yoselin Brower B Type Natriuretic Peptide (Routine) Timeframe: 1 Day Facility: [facility] - Location: Laboratory Ordered By: Yoselin Brower Magnesium (Routine) Timeframe: 1 Day Facility: [facility] - Location: Laboratory Ordered By: Yoselin Brower Care Plan Goals: avoid hospitalization, prevent complications of heart disease Health Concerns: cardiomyopathy/congestive heart failure obstructive sleep apnea pneumonia Plan of Treatment: follow up with Cardiology next week; defibrillator/pacer to be arranged by their clinic take bumetanide 2 mg twice daily, and metolazone 2.5 mg once weekly reduce Entresto dose to 24/26 mg twice daily continue spironolactone 50 mg once daily HOLD carvedilol until you have the defibrillator/pacer instructions to VNA: please draw BMP, BNP, and magnesium on 06/10/20 use CPAP as prescribed and follow up with Pulmonology in 2-3 weeks finish antibiotics for pneumonia: cefuroxime 500 mg twice daily PLUS doxycycline 100 mg twice daily, both for two days Assessment: see above Patient Instructions: Pneumonia (DC), Implantable Cardioverter Defibrillator (DC), Pacemaker (DC)
[2020-06-10 20:02] LABS: Strep Pneumo Ag urine Not Detected (Not Detected)
[2020-06-11 18:22] LABS: Legionella Ag Urine Not Detected (Not Detected)
== END 2020-06-09 14:45 | disposition home health service (06) | DRG 194 ==
LOC: HO.ED 16:44 → HO.EDOVER 18:42 → HO.IMC 21:37
PROVIDERS: Admitting Provider Family Medicine; Emergency Provider Emergency Medicine Emergency Medical Services; PCP Internal Medicine; Visit Provider Family Medicine
DX: I11.0 Hypertensive heart disease with heart failure (principal); J18.9 Pneumonia, unspecified organism; I95.9 Hypotension, unspecified; I49.5 Sick sinus syndrome; I42.8 Other cardiomyopathies; E66.01 Morbid (severe) obesity due to excess calories; E83.42 Hypomagnesemia; K81.9 Cholecystitis, unspecified; I50.23 Acute on chronic systolic (congestive) heart failure; I47.1 Supraventricular tachycardia; R04.2 Hemoptysis; Z68.42 Body mass index [BMI] 45.0-49.9, adult; I34.0 Nonrheumatic mitral (valve) insufficiency; G47.33 Obstructive sleep apnea (adult) (pediatric); F17.210 Nicotine dependence, cigarettes, uncomplicated; Z71.6 Tobacco abuse counseling; I16.0 Hypertensive urgency; Z20.822 Contact with and (suspected) exposure to COVID-19; Z79.899 Other long term (current) drug therapy
CPT/HCPCS: 36415; 71046; 71250; 74177; 78227; 80048; 80053; 81001; 81025; 82728; 83605; 83615; 83690; 83735; 83880; 84145; 84484; 85025; 85610; 85730; 86140; 87040; 87449; 87633; 87635; 87899; 93005; 93306; 94660; 96365; 96375; 99285; A9537; J0696; J1205; J2270; J2405; J2543; J2805; J3475; Q9967

== ENCOUNTER 2020-06-21 11:40 | Outpatient (REF) | payer MEDICAID, SELFPAY ==
[2020-06-21 14:40] LABS: B Type Natriuretic Peptide 637 pg/mL (<100)
[2020-06-21 14:45] LABS: Anion Gap 14 (12-20); Blood Urea Nitrogen 12 mg/dL (9-16); Calcium 9.6 mg/dL (8.4-10.2); Carbon Dioxide 25 mmol/L (22-29); Chloride 104 mmol/L (96-108); Estimated Glomerular Filt Rate > 60; Glucose Random 88 mg/dL (60-115); Magnesium 1.9 mg/dL (1.6-2.6); Potassium 4.4 mmol/L (3.3-5.1); Sodium 139 mmol/L (135-145)
== END 2020-06-21 11:41 | disposition home or self-care (01) ==
LOC: HO.LAB 11:40
PROVIDERS: Family Medicine; Absent Provider Internal Medicine Cardiovascular Disease; PCP Internal Medicine; Visit Provider Nurse Practitioner Family
DX: I11.0 Hypertensive heart disease with heart failure (principal); I50.23 Acute on chronic systolic (congestive) heart failure; I42.8 Other cardiomyopathies; I45.5 Other specified heart block
CPT/HCPCS: 36415; 80048; 83735; 83880; 99212

== ENCOUNTER 2020-08-31 15:11 | Outpatient (REF) | payer OTHER, SELFPAY ==
--- NOTE | ~2020-08-31 | XR_ITS ---
EXAMINATION: XR CHEST CLINICAL INFORMATION: CHF COMPARISON: Previous chest x-ray most recent May 2020 TECHNIQUE: 2 views of the chest were obtained. FINDINGS: The cardiac silhouette is enlarged and. There is pulmonary venous redistribution. There is increased perihilar and attenuation. There is a focal airspace disease at the right lung base. There are small bilateral pleural effusions, right greater than left. Findings are suggestive of CHF. This is new or increased from May 2020 exam. Difficult to exclude a superimposed right base pneumonia. Bony structures are unremarkable. XR/XR chest 2V IMPRESSION: New CHF. More focal airspace disease of the right lung base. It is difficult to exclude a right base pneumonia.
[2020-08-31 16:40] LABS: B Type Natriuretic Peptide 2567 pg/mL (<100)
[2020-08-31 16:43] LABS: Anion Gap 17 (12-20); Blood Urea Nitrogen 12 mg/dL (9-16); Calcium 9.4 mg/dL (8.4-10.2); Carbon Dioxide 24 mmol/L (22-29); Chloride 105 mmol/L (96-108); Estimated Glomerular Filt Rate > 60; Glucose Random 135 mg/dL (60-115); Potassium 4.5 mmol/L (3.3-5.1); Sodium 141 mmol/L (135-145)
== END 2020-08-31 15:12 | disposition home or self-care (01) ==
LOC: HO.XRAY 15:11
PROVIDERS: PCP Internal Medicine; Visit Provider Internal Medicine Cardiovascular Disease
DX: I50.22 Chronic systolic (congestive) heart failure (principal)
CPT/HCPCS: 36415; 71046; 80048; 83880; 99212

== ENCOUNTER 2020-10-06 15:09 | Outpatient (REF) | payer OTHER, SELFPAY ==
[2020-10-06 17:57] LABS: Anion Gap 16 (12-20); Blood Urea Nitrogen 17 mg/dL (9-16); Calcium 9.7 mg/dL (8.4-10.2); Carbon Dioxide 28 mmol/L (22-29); Chloride 104 mmol/L (96-108); Estimated Glomerular Filt Rate > 60; Glucose Random 91 mg/dL (60-115); Magnesium 1.8 mg/dL (1.6-2.6); Potassium 4.7 mmol/L (3.3-5.1); Sodium 143 mmol/L (135-145)
[2020-10-06 18:04] LABS: B Type Natriuretic Peptide 1592 pg/mL (<100)
== END 2020-10-06 15:10 | disposition home or self-care (01) ==
LOC: HO.LAB 15:09
PROVIDERS: PCP Internal Medicine; Visit Provider Internal Medicine Cardiovascular Disease
DX: I42.8 Other cardiomyopathies (principal); I50.22 Chronic systolic (congestive) heart failure; I47.2 Ventricular tachycardia
CPT/HCPCS: 36415; 80048; 83735; 83880; 93005; 99212

== ENCOUNTER 2020-10-17 08:07 | Outpatient (REF) | payer OTHER, SELFPAY ==
[2020-10-17 09:41] LABS: Anion Gap 12 (12-20); Blood Urea Nitrogen 17 mg/dL (9-16); Carbon Dioxide 29 mmol/L (22-29); Chloride 103 mmol/L (96-108); Estimated Glomerular Filt Rate > 60; Glucose Random 104 mg/dL (60-115); Potassium 4.9 mmol/L (3.3-5.1); Sodium 139 mmol/L (135-145)
[2020-10-17 09:43] LABS: B Type Natriuretic Peptide 228 pg/mL (<100)
== END 2020-10-17 08:08 | disposition home or self-care (01) ==
LOC: HO.LAB 08:07
PROVIDERS: PCP Internal Medicine; Visit Provider Internal Medicine Cardiovascular Disease
DX: I50.22 Chronic systolic (congestive) heart failure (principal)
CPT/HCPCS: 36415; 80048; 83880

== ENCOUNTER 2021-04-06 14:59 | Outpatient (REF) | payer OTHER, SELFPAY ==
[2021-04-06 16:39] LABS: MANUAL DIFF FLAG NO
[2021-04-06 16:47] LABS: Basophils Percent Auto 0.2 % (0-2); Eosinophils Absolute Auto 0.1 X10*3/uL (0.0-0.4); Eosinophils Percent Auto 0.7 % (0-4); Hematocrit 47.2 % (37.0-47.0); Hemoglobin 15.2 g/dl (12.0-16.0); Imm Gran Abs Auto 0.03 X10*3/uL (0.00-0.03); Imm Gran Pct Auto 0.3 % (0.0-0.4); Lymphocytes Absolute Auto 2.6 X10*3/uL (1.2-4.9); Lymphocytes Percent Auto 25.5 % (20-40); Mean Corpuscular HGB Conc 32.2 g/dl (31.0-35.0); Mean Corpuscular Hemoglobin 28.4 pg (27.0-33.0); Mean Corpuscular Volume 88.1 fL (80.0-98.0); Mean Platelet Volume 10.8 fL (9.4-12.3); Monocytes Absolute Auto 0.5 X10*3/uL (0.1-1.2); Monocytes Percent Auto 4.9 % (2-11); Neutrophils Absolute Auto 6.9 x10*3/uL (2.0-8.3); Neutrophils Percent Auto 68.4 % (45-73); Platelet Count 165 X10*3/uL (160-400); Red Blood Count 5.36 X10*6/uL (4.20-5.50); Red Cell Distribution Width 13.4 % (11.0-16.0); White Blood Count 10.1 X10*3/uL (4.8-10.8)
[2021-04-06 17:05] LABS: Anion Gap 10 (12-20); Blood Urea Nitrogen 10 mg/dL (9-16); Calcium 9.8 mg/dL (8.4-10.2); Carbon Dioxide 28 mmol/L (22-29); Chloride 103 mmol/L (96-108); Estimated Glomerular Filt Rate > 60; Glucose Random 95 mg/dL (60-115); Magnesium 1.6 mg/dL (1.6-2.6); Potassium 4.3 mmol/L (3.3-5.1); Sodium 137 mmol/L (135-145)
[2021-04-06 17:13] LABS: B Type Natriuretic Peptide 354 pg/mL (<100)
== END 2021-04-06 15:00 | disposition home or self-care (01) ==
LOC: HO.LAB 14:59
PROVIDERS: PCP Internal Medicine; Visit Provider Internal Medicine Cardiovascular Disease
DX: I45.5 Other specified heart block (principal); I50.22 Chronic systolic (congestive) heart failure
CPT/HCPCS: 36415; 80048; 83735; 83880; 85025; 99212

== ENCOUNTER → 2021-06-09 12:19 | Outpatient (REF) | payer OTHER, SELFPAY ==
--- NOTE | 2021-06-09 12:27 | CA_ITS ---
Transthoracic Echocardiogram Patient (Last, First, Middle): Brook Gonzales, Gender: Female Date of : 1975 Age: 45 Procedure Date: 06/09/2021 Procedure Type: Transthoracic Echocardiogram Location: OP Height: 157.48 cm Weight: 117.94 kg BSA: 2.14 m2 Heart Rate: bpm BP: 120 / 80 mmHg Patient Services Manager: CP/TO Referring MD: Abdias Yu MD Symptoms: I50.22 - Chronic systolic (congestive) heart failure Study Quality: Fair Conclusions: - Normal left ventricular cavity size. There is mildly increased left ventricular wall thickness. The left ventricular systolic function is severely decreased. The visually estimated ejection fraction is between 20-25%. - Elevated filling pressures. - The basal inferior segment is akinetic. - There is mild dilatation of the sinuses of Valsalva measuring 3.73 cm, mild dilatation of the ascending aorta measuring 3.40 cm, and mild dilatation of the aortic arch measuring 3.30 cm. Findings Left Ventricle Normal left ventricular cavity size. There is mildly increased left ventricular wall thickness. The left ventricular systolic function is severely decreased. The visually estimated ejection fraction is between 20 25%. There is evidence of regional wall motion abnormalities. There is severe global hypokinesis. Abnormal diastolic function is noted. Spectral Doppler is indicative of a restrictive filling pattern. Elevated filling pressures. Wall Motion Rest Echo Findings The basal inferior segment is akinetic. Right Ventricle Normal right ventricular cavity size and systolic function. Atria The left atrium is mildly dilated. The right atrium is mildly dilated. Aortic Valve There is a normal trileaflet aortic valve. There is no aortic valve stenosis. There is no aortic valve regurgitation. Mitral Valve The mitral valve appears normal. There is mild mitral valve regurgitation. There is no mitral valve stenosis. Pulmonic Valve Normal pulmonic valve structure and function. Tricuspid Valve Normal tricuspid valve structure and function. There is trace tricuspid valve regurgitation. Tricuspid regurgitation envelope is inadequate for calculation of right ventricular systolic pressure. Normal right atrial pressure. Great Vessels There is mild dilatation of the sinuses of Valsalva measuring 3.73 cm, mild dilatation of the ascending aorta measuring 3.40 cm, and mild dilatation of the aortic arch measuring 3.30 cm. The visualized portions of the pulmonary artery and branches are normal. Venous The inferior vena cava is normal in size and collapses greater than 50% with inspiration. Prior Study Comparison Changes noted compared to prior study dated: 06/06/2020. Mild dilation of aorta. Measurements 2D Linear Measurements IVSd: 1.00 0.6-0.9/0.6-1.0 cm LVIDd: 6.26 3.9-5.3/4.2-5.9 cm LVIDd Index: 2.93 2.4-3.2/2.2-3.1 cm/m2 LVIDs: 5.06 2.0-3.6 cm LVPWd: 1.16 0.7-1.1 cm LA Diam: 4.80 2.7-3.8/3.0-4.0 cm LAIDs Index: 2.24 1.5-2.3 cm/m2 LV Mass: 365.70 67-162/88-224 g LV Mass Index: 170.89 43-95/49-115 g/m2 LVOT Diam: 2.30 3.0+(-)1.3 cm 2D Systolic Function EF 4C: 26.60 >55% EF 2C: 27.00 >55% EF BiP: 26.90 >55% Mitral Valve E'Lateral: 2.94 E'Medial: 2.83 Aortic Valve AoV Pk Gennaro: 1.41 AoV Mn Gennaro: 0.97 AoV VTI: 0.23 AoV Pk Grad: 8.00 Aov Mn Grad: 4.00 MICHELLE Cont.VTI: 2.58 LVOT LVOT Pk Gennaro: 0.93 LVOT Mn Gennaro: 0.59 LVOT VTI: 0.14 LVOT Pk Grad: 3.00 LVOT Mn Grad: 2.00 LVOT Diam: 2.30 LVOT Area: 4.15 Diastolic Function E'Medial: 2.83 E' Laterial: 2.94 Right Ventricle TAPSE (mm): 18.00 TVS' Gennaro: 8.38 Tricuspid Valve RA Press: 3.00 Great Vessels Aorta Sinus of Valsalva: 3.73 2.0-3.[address] Ridge: 2.93 1.7-3.4 cm Ao Asc: 3.40 2.1-3.4 cm Ao Arch: 3.30 Updated in Other Vendor System with Status of Final Kaiser Hu MD electronically signed on 06/10/2021 10:43:44 PM with status of Final
--- NOTE | 2021-06-09 12:27 | HM_ITS ---
* Total monitoring time 18 days, 1 hour. * Underlying rhythm is sinus. Average rate 98/Min. Range 79 to 157/Min. About 33% the time, rate greater than 100/Min. * No atrial fibrillation or flutter or AV blocks or pauses. * Rare ventricular ectopy; minimal burden. 2 short runs, longest 4 beats. * No patient events. MTDD
== END ==
LOC: HO.CARD 12:19
PROVIDERS: Visit Provider Internal Medicine Cardiovascular Disease
DX: I45.5 Other specified heart block (principal); I50.22 Chronic systolic (congestive) heart failure
CPT/HCPCS: 93242; 93306

== ENCOUNTER → 2021-08-10 10:04 | Outpatient (BNVA) | payer OTHER, SELFPAY | PROVIDERS: Visit Provider Internal Medicine Cardiovascular Disease | DX: I11.0 Hypertensive heart disease with heart failure (principal); I50.22 Chronic systolic (congestive) heart failure | CPT/HCPCS: 99212 ==

== ENCOUNTER 2022-02-15 12:25 | Outpatient (REF) | payer MEDICARE, MEDICAID, SELFPAY ==
[2022-02-15 15:31] LABS: Anion Gap 20 (12-20); Blood Urea Nitrogen 12 mg/dL (9-16); Calcium 9.8 mg/dL (8.4-10.2); Carbon Dioxide 23 mmol/L (22-29); Chloride 103 mmol/L (96-108); Estimated Glomerular Filt Rate > 60; Glucose Random 94 mg/dL (60-115); Potassium 4.5 mmol/L (3.3-5.1); Sodium 141 mmol/L (135-145)
[2022-02-15 15:36] LABS: B Type Natriuretic Peptide 592 pg/mL (<100)
== END 2022-02-15 12:26 | disposition home or self-care (01) ==
LOC: HO.LAB 12:25
PROVIDERS: Visit Provider Internal Medicine Cardiovascular Disease
DX: I50.22 Chronic systolic (congestive) heart failure (principal)
CPT/HCPCS: 36415; 80048; 83880; 93005; 99212

== ENCOUNTER → 2022-06-01 12:59 | Outpatient (BNVA) | payer MEDICARE, MEDICAID, SELFPAY | PROVIDERS: PCP Internal Medicine; Visit Provider Internal Medicine Cardiovascular Disease | DX: I50.22 Chronic systolic (congestive) heart failure (principal); Z79.899 Other long term (current) drug therapy | CPT/HCPCS: 99212 ==

== ENCOUNTER 2023-01-14 14:54 | Outpatient (AMB) | payer MEDICARE, MEDICAID, SELFPAY ==
--- NOTE | 2023-01-14 14:56 | MHC.OFFVIS ---
Intake Vital Signs 01/14/23 14:58 Height 5 ft 1 in Weight 286 lb 9.615 oz BMI 54.1 BP 126/70 Blood Pressure Location Rt brachial Position Sitting Pulse 102 H Intake Visit Reasons: 6 mth fu Intake Note: 6 month follow-up Allergies SEASONAL ALLERGIES Allergy (Unknown, Uncoded 06/21/20 12:09) ASTHMA, NASAL CONGESTION Medication List - Last Reconciled 01/14/23 by Abdias Yu MD albuterol sulfate 90 mcg/actuation (Ventolin HFA) 2 puffs inhalation Q4H PRN amitriptyline 25 mg PO BEDTIME PRN biotin 1,000 mcg PO DAILY PRN blood pressure monitor (Blood Pressure Kit) As directed bumetanide 2 mg PO DAILY carvedilol 6.25 mg PO BID cetirizine 10 mg PO DAILY empagliflozin (Jardiance) 10 mg PO DAILY magnesium oxide 400 mg PO DAILY sacubitril-valsartan 49-51 mg (Entresto) 1 tab PO BID spironolactone 50 mg PO DAILY 30 days HPI HPI Comments History of Present Illness Details Brook comes for follow-up. She has been doing well. She has been trying to lose weight with diet modification. Trying to exercise as well. Taking all her medications. Denies any worsening heart failure symptoms or hospitalization in the last 6 months. Denies any palpitations, lightheadedness, syncope. Denies worsening orthopnea, PND, shortness of breath. No chest pain. [facility] Medical History Morbid obesity Essential hypertension Acute on chronic HFrEF (heart failure with reduced ejection fraction) Pneumonia Obesity JONI (obstructive sleep apnea) HTN (hypertension) Nonischemic cardiomyopathy Chronic HFrEF (heart failure with reduced ejection fraction) Surgical History Hx of section Family History Mother HTN (hypertension) Social History Household Members: Spouse and Children Housing: Apartment Do you presently have visiting nurse or other home services: No Alcohol intake: never Tobacco use type: Cigarette Cigarette Packs Per Day: 1 Second Hand Smoke Exposure: Yes service: No Review of Systems Const Denies chills, Denies fatigue, Denies fever(s), Denies frequent falls, Denies weakness, Denies weight gain and Denies weight loss ENT Denies dizziness Card Denies chest pain, Denies leg edema, Denies lightheadedness, Denies palpitations, Denies dyspnea, Denies dyspnea on exertion, Denies orthopnea and Denies other (loss of consciousness) Resp Denies cough, Denies dyspnea and Denies dyspnea on exertion GI Denies hematochezia and Denies change in stool character Musc Denies abnormal gait, Denies muscle weakness, Denies numbness, Denies radiating pain into limb and Denies tingling Neuro Denies abnormal gait, Denies dizziness, Denies frequent falls, Denies numbness, Denies tingling and Denies weakness Endo Denies fatigue and Denies palpitations Physical Exam Vital Signs: Last Vital Signs Pulse 102 H 01/14/23 14:58 BP 126/70 01/14/23 14:58 BMI result Body Mass Index 54.1 Const General: cooperative, alert, awake and in distress mild and respiratory Nutritional Appearance: obese centrally obese Orientation/consciousness: patient oriented x3 Neck Neck: Yes trachea midline, Yes supple and Yes JVD Resp Effort & Inspection: normal respiratory effort Auscultation: no wheezes and diminished lung sounds Cardio Jugular venous distension: JVD Palpation: abnormal PMI displaced PMI Rate: regular rate Rhythm: regular rhythm Heart sounds: S1 normal heart sound present and S2 normal heart sound present GI Auscultation: normal bowel sounds Neuro General: patient oriented x3 and no focal motor deficits Extrem General: No clubbing, No cyanosis and Yes edema Office Procedures EKG Details: EKG shows sinus tachycardia with nonspecific ST T wave changes [id number], Complete Assessment & Plan Assessment & Plan (1) Chronic HFrEF (heart failure with reduced ejection fraction): Code(s): I50.22 - Chronic systolic (congestive) heart failure Plan: Patient with heart failure with reduced ejection fraction secondary to severe nonischemic cardiomyopathy. Clinically appears to be euvolemic and well compensated. Continue current diuretic dose. Will further maximize carvedilol to 12.5 mg b.i.d. given elevated heart rate. Continue Jardiance, Entresto and spironolactone for neurohormonal modulation as well. Continue current diuretic dose. Daily weight monitoring avoidance of salt loading was discussed. Encouraged to continue participate in weight loss program. Also discussed about regular physical activity and consideration of phase 2 cardiac rehabilitation. Although she says she does not have a proper transport to go back and forth. Also discussed about ICD and she currently declines. Follow-up in 6 months after echocardiogram. Thank you for allowing me to partake in the care Orders: Orders CA echo transthoracic complete 5 Months I50.22 - Chronic systolic (congestive) heart failure Coding Level of Care Code Est Pt Level 4 (57985) Diagnoses Chronic HFrEF (heart failure with reduced ejection fraction) I50.22 CPT Codes EKG - CPT: 36021-[id number], Complete ([id number])
[2023-01-14 14:58] VITALS: BP 126/70; PULSE 102; BMI 54.1
== END 2023-01-14 15:23 | disposition home or self-care (01) ==
PROVIDERS: Visit Provider Internal Medicine Cardiovascular Disease
DX: I50.22 Chronic systolic (congestive) heart failure (principal)
CPT/HCPCS: 93010; 99214

== ENCOUNTER → 2023-01-14 14:54 | Outpatient (BNVA) | payer MEDICARE, MEDICAID, SELFPAY | PROVIDERS: Visit Provider Internal Medicine Cardiovascular Disease | DX: I11.0 Hypertensive heart disease with heart failure (principal); I50.22 Chronic systolic (congestive) heart failure | CPT/HCPCS: 93005; 99212 ==

== ENCOUNTER → 2023-08-19 12:25 | Outpatient (REF) | payer MEDICARE, MEDICAID, SELFPAY ==
--- NOTE | 2023-08-19 12:28 | CA_ITS ---
Transthoracic Echocardiogram Patient (Last, First, Middle): Brook Gonzales, Gender: Female Date of : 1975 Age: 47 Procedure Date: 08/19/2023 Procedure Type: Transthoracic Echocardiogram Location: OP Height: 154.94 cm Weight: 129.73 kg BSA: 2.20 m2 Heart Rate: 89 bpm BP: 130 / 68 mmHg Advertising Manager: AKHIL Referring MD: Abdias Yu MD Rfid Manager: Abdias Yu MD Symptoms: I50.22 - Chronic systolic (congestive) heart failure Study Quality: Fair parasternal/adequate apical windows ECG Rhythm: Sinus Conclusions: - 1. Mildly dilated left ventricle with moderate to severe LV systolic dysfunction with LVEF of 30 35% with impaired relaxation filling pattern 2. Cardiac valvular Dopplers within normal limits Findings Procedure Information The quality of the study was technically difficult. The study quality is limited by patients body habitus. Left Ventricle Mildly increased left ventricular cavity size. There is mildly increased left ventricular wall thickness. The left ventricular systolic function is moderate to severely decreased. The visually estimated ejection fraction is between 30-35%. Spectral Doppler is indicative of an impaired relaxation filling pattern. E/E prime ratio is between 8 and 15 consistent with indeterminate filling pressures. Right Ventricle The right ventricle was not well visualized. Atria The left atrium is mildly dilated. Interatrial shunt cannot be excluded. The right atrium is normal in size. Aortic Valve The aortic valve structure and function is likely normal. There is no aortic valve stenosis. There is no aortic valve regurgitation. Mitral Valve Likely normal mitral valve structure and function. There is trace mitral valve regurgitation. There is no mitral valve stenosis. Pulmonic Valve The pulmonic valve is likely normal. Tricuspid Valve Normal tricuspid valve structure. Tricuspid regurgitation envelope is inadequate for calculation of right ventricular systolic pressure. Normal right atrial pressure. Great Vessels The aorta was not well visualized. The pulmonary artery was not well visualized. There is no dilatation of the ascending aorta measuring 3.40 cm. Venous The inferior vena cava is normal in size. Pericardium/Pleural The pericardium was not well visualized. Prior Study Comparison No significant change compared to prior study dated: 06/09/2021. Measurements 2D Linear Measurements IVSd: 1.30 0.6-0.9/0.6-1.0 cm LVIDd: 5.87 3.9-5.3/4.2-5.9 cm LVIDd Index: 2.67 2.4-3.2/2.2-3.1 cm/m2 LVIDs: 4.89 2.0-3.6 cm LVPWd: 1.19 0.7-1.1 cm LA Diam: 4.70 2.7-3.8/3.0-4.0 cm LAIDs Index: 2.14 1.5-2.3 cm/m2 LV Mass: 397.30 67-162/88-224 g LV Mass Index: 180.59 43-95/49-115 g/m2 LVOT Diam: 2.30 3.0+(-)1.3 cm Mitral Valve MV Pk E: 0.83 MV PK A: 1.03 MV Decel Time: 129.00 E/A: 0.80 PHT: 38.00 MVA PHT: 5.79 Decel Karnes: 6.47 Aortic Valve AoV Pk Gennaro: 1.41 AoV Pk Grad: 8.00 MICHELLE: 2.55 LVOT LVOT Pk Gennaro: 0.87 LVOT Mn Gennaro: 0.64 LVOT VTI: 0.15 LVOT Pk Grad: 3.00 LVOT Mn Grad: 2.00 LVOT Diam: 2.30 LVOT Area: 4.15 Diastolic Function MV Pk E: 0.83 MV Pk A: 1.03 E/A: 0.80 Right Ventricle TAPSE (mm): 27.60 TVS' Gennaro: 11.70 Tricuspid Valve RA Press: 3.00 Great Vessels Aorta Sinus of Valsalva: 3.30 2.0-3.5 cm Ao Asc: 3.40 2.1-3.4 cm Pulmonary Valve PV Pk Gennaro: 0.99 Peak PV Grad: 4.00 Updated in Other Vendor System with Status of Final Abdias Yu MD electronically signed on 08/19/2023 2:13:29 PM with status of Final
== END ==
LOC: HO.CARD 12:25
PROVIDERS: PCP Internal Medicine; Visit Provider Internal Medicine Cardiovascular Disease
DX: I50.22 Chronic systolic (congestive) heart failure (principal)
CPT/HCPCS: 93306

== ENCOUNTER → 2023-08-19 12:28 | Outpatient (BNV) | payer MEDICARE, MEDICAID, SELFPAY | PROVIDERS: PCP Internal Medicine; Visit Provider Internal Medicine Cardiovascular Disease | DX: I50.22 Chronic systolic (congestive) heart failure (principal) | CPT/HCPCS: 93306 ==

== ENCOUNTER 2024-04-02 09:51 | Outpatient (REF) | payer MEDICARE, MEDICAID, SELFPAY ==
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
[2024-04-02 11:09] LABS: Hematocrit 44.1 % (37.0-47.0); Hemoglobin 14.1 g/dl (12.0-16.0); Mean Corpuscular Hemoglobin 27.4 pg (27.0-33.0); Mean Corpuscular Volume 85.6 fL (80.0-98.0); Mean Platelet Volume 10.9 fL (9.4-12.3); Platelet Count 200 X10*3/uL (160-400); Red Blood Count 5.15 X10*6/uL (4.20-5.50); Red Cell Distribution Width 14.6 % (11.0-16.0); White Blood Count 9.6 X10*3/uL (4.8-10.8)
[2024-04-02 11:46] LABS: Anion Gap 11 (12-20); Blood Urea Nitrogen 18 mg/dL (9-16); Calcium 9.8 mg/dL (8.4-10.2); Carbon Dioxide 23 mmol/L (22-29); Chloride 106 mmol/L (96-108); Estimated Glomerular Filt Rate > 60; Glucose Random 102 mg/dL (60-115); Potassium 4.6 mmol/L (3.3-5.1); Sodium 135 mmol/L (135-145)
== END 2024-04-02 09:52 | disposition home or self-care (01) ==
LOC: HO.LAB 09:51
PROVIDERS: PCP Internal Medicine; Visit Provider Internal Medicine Cardiovascular Disease
DX: I50.22 Chronic systolic (congestive) heart failure (principal)
CPT/HCPCS: 36415; 80048; 85027; 93005; 99212

== ENCOUNTER → 2024-09-02 12:55 | Outpatient (REF) | payer MEDICARE, MEDICAID, SELFPAY ==
--- NOTE | 2024-09-02 12:59 | CA_ITS ---
Transthoracic Echocardiogram Patient (Last, First, Middle): Brook Gonzales, Gender: Female Date of : 1975 Age: 48 Procedure Date: 09/02/2024 Procedure Type: Transthoracic Echocardiogram Location: OP Height: 157.48 cm Weight: 125.19 kg BSA: 2.19 m2 Heart Rate: bpm BP: 120 / 74 mmHg Bathroom Tiling Professional: FITO/RUDOLPH Referring MD: Abdias Yu MD Nuclear Equipment Test Engineer: Abdias Yu MD Symptoms: I50.22 - Chronic systolic (congestive) heart failure Study Quality: Technically Difficult ECG Rhythm: Sinus with extra beats Conclusions: - 1. Technically difficult parasternal windows 2. Moderate to severe LV systolic dysfunction with LVEF of 30 35% with impaired relaxation filling pattern 3. Cardiac valvular Dopplers within normal limits Findings Left Ventricle Normal left ventricular cavity size. There is normal left ventricular wall thickness. The left ventricular systolic function is moderate to severely decreased. The visually estimated ejection fraction is between 30-35%. Spectral Doppler is indicative of an impaired relaxation filling pattern. E/E prime ratio is between 8 and 15 consistent with indeterminate filling pressures. Right Ventricle Mildly increased right ventricular cavity size. There is normal right ventricular systolic function. Atria The left atrium is normal in size. There is no evidence of interatrial shunt. The right atrium was not well visualized. Aortic Valve The aortic valve was not well visualized. There is no aortic valve stenosis. There is no aortic valve regurgitation. Mitral Valve Likely normal mitral valve structure and function. There is trace mitral valve regurgitation. There is no mitral valve stenosis. Pulmonic Valve The pulmonic valve was not well visualized. Tricuspid Valve Likely normal tricuspid valve structure and function. Tricuspid regurgitation envelope is inadequate for calculation of right ventricular systolic pressure. Great Vessels The aorta was not well visualized. The pulmonary artery was not well visualized. Venous The inferior vena cava is normal in size and collapses greater than 50% with inspiration. Pericardium/Pleural The pericardium was not well visualized. Prior Study Comparison No significant change compared to prior study dated: 08/19/2023. Measurements 2D Linear Measurements IVSd: 1.33 0.6-0.9/0.6-1.0 cm LVIDd: 5.82 3.9-5.3/4.2-5.9 cm LVIDd Index: 2.66 2.4-3.2/2.2-3.1 cm/m2 LVIDs: 4.53 2.0-3.6 cm LVPWd: 1.02 0.7-1.1 cm Ao Root: 3.20 2.1-3.5 cm LA Diam: 4.50 2.7-3.8/3.0-4.0 cm LAIDs Index: 2.05 1.5-2.3 cm/m2 LV Mass: 362.13 67-162/88-224 g LV Mass Index: 165.36 43-95/49-115 g/m2 LVOT Diam: 2.30 3.0+(-)1.3 cm 2D Systolic Function EF 4C: 36.50 >55% EF 2C: 29.10 >55% EF BiP: 34.90 >55% Mitral Valve MV Pk E: 0.81 MV PK A: 1.07 MV Decel Time: 117.00 E/A: 0.80 E'Lateral: 7.51 E'Medial: 7.62 E/E' Med: 10.60 E/E' Lat: 10.80 PHT: 34.00 MVA PHT: 6.47 Decel Rutherford: 6.93 Aortic Valve AoV Pk Gennaro: 1.85 AoV Mn Gennaro: 1.21 AoV VTI: 0.29 AoV Pk Grad: 14.00 Aov Mn Grad: 7.00 MICHELLE Cont.VTI: 2.24 LVOT LVOT Pk Gennaro: 0.78 LVOT Mn Gennaro: 0.53 LVOT VTI: 0.16 LVOT Pk Grad: 2.00 LVOT Mn Grad: 1.00 LVOT Diam: 2.30 LVOT Area: 4.15 Diastolic Function MV Pk E: 0.81 MV Pk A: 1.07 E/A: 0.80 E'Medial: 7.62 E/E' Med: 10.60 E' Laterial: 7.51 E/E' Lat: 10.80 Right Ventricle TAPSE (mm): 23.10 TVS' Gennaro: 9.25 Tricuspid Valve TR Pk Gennaro: 2.27 TR Pk Grad: 21.00 Great Vessels Aorta Ao Root-2D: 3.20 2.0-3.7 cm Ao Asc: 3.40 2.1-3.4 cm Ao Arch: 2.70 Updated in Other Vendor System with Status of Final Abdias Yu MD electronically signed on 09/02/2024 3:38:40 PM with status of Final
--- OUTSIDE RECORDS SUMMARY | 2024-09-02 13:44 | XMS_ITS | Clinical Summary ---
Author Organization [facility] [address] [place] [address] [address] [place] [phone] Phone Care Team Providers Care Emergency Telecommunications Dispatcher Name Role Phone Steve Oreilly MD Primary Care Provider [phone] Allergies Active Allergy Reactions Criticality Noted Date Comments Levonorgestrel-Ethinyl Estrad 2019 Seasonal Medications amitriptyline (ELAVIL) 25 mg tablet TAKE 1 TABLET BY MOUTH AT BEDTIME NEEDED FOR SLEEP 30 tablet 02/10/20 24 Active bumetanide (BUMEX) 2 mg tablet Take 1 Tablet by mouth 2 times daily. Active carvediloL (COREG) 25 mg tablet Take 1 Tab by mouth 2 times daily (with meals). 11/19/19 19 Active cetirizine (ZyrTEC) 10 mg tablet TAKE 1 TABLET BY MOUTH EVERYDAY AT BEDTIME 12/02/19 24 Active dapagliflozin propanediol (Farxiga) 5 mg tablet Take 5 mg by mouth daily. 08/07/19 24 Active nicotine polacrilex (NICORETTE) 2 mg gum Take 2 mg by mouth every 2 hours as needed (Nicotine crawing). Max 16mg/day 04/23/19 23 Active magnesium oxide (MAG-OX) 400 mg (241.3 elemental magnesium) tablet Magnesium Oxide -Mg Supplement 400 (240 Mg) MG Tab TAKE 1 TABLET BY MOUTH EVERY DAY 12/02/19 24 Active miscellaneous medical supply misc CPAP Historical (HISTORICAL CPAP) Inhale into the lungs. SMS-pressure 6-16 Active albuterol 2.5 mg /3 mL (0.083 %) nebulizer solutionIndicat ions:JONI on CPAP Take 3 mL (2.5 mg total) by nebulization 4 (four) times a day if needed for wheezing. 300 mL 1 05/12/19 25 Active semaglutide (OZEMPIC) 0.25 mg or 0.5 mg (2 mg/3 mL) injection penIndications: Morbid obesity with BMI of 50.0-59.9, adult ([facility] V24, [facility] V28) Inject 0.5 mg under the skin every 7 (seven) days. 2 mL 1 08/13/19 25 Active PARoxetine (PAXIL) 10 mg tablet Take 1 tablet (10 mg total) by mouth 1 (one) time each day in the morning. 90 each 08/13/19 25 Active cyanocobalamin (VITAMIN B-12) 1,000 mcg tablet Take 1 tablet (1,000 mcg total) by mouth 1 (one) time each day. 90 tablet 1 08/13/19 25 Active spironolactone (ALDACTONE) 50 mg tabletIndicatio ns:Chronic systolic (congestive) heart failure ([facility] V24, [facility] V28) Take 1 tablet (50 mg total) by mouth 1 (one) time each day. 90 tablet 1 08/13/19 25 Active sacubitriL-vals isi (Entresto) 49-51 mg per tablet Take 1 tablet by mouth 2 (two) times a day. 180 tablet 1 08/13/19 25 Active albuterol HFA (Ventolin HFA) 90 mcg/actuation inhaler Inhale 2 puffs by mouth every 4 (four) hours if needed for wheezing. 18 each 2 08/13/19 25 Active cyanocobalamin (VITAMIN B-12) 1,000 mcg tablet TAKE 1 TABLET BY MOUTH EVERY DAY 90 tablet 1 02/10/20 24 025 Discontin ued(Reord er) sacubitriL-vals isi (Entresto) 49-51 mg per tablet Take 1 Tab by mouth 2 times daily. 08/12/19 20 025 Discontin ued(Reord er) Ventolin HFA 90 mcg/actuation inhaler INHALE 2 PUFFS INTO THE LUNGS EVERY 6 HOURS NEEDED FOR COUGH OR WHEEZING. 18 each 04/07/19 25 025 Discontin ued(Reord er) semaglutide (OZEMPIC) 0.25 mg or 0.5 mg (2 mg/3 mL) injection penIndications: Morbid obesity ([facility] V24, [facility] V28),Anxiety and depression Inject 0.25 mg under the skin every 7 (seven) days. 2 mL 1 05/12/19 25 025 Discontin ued(Dose adjustmen t) PARoxetine (PAXIL) 10 mg tablet Take 1 tablet (10 mg total) by mouth 1 (one) time each day in the morning. 30 each 1 05/12/19 25 025 Discontin ued(Reord er) spironolactone (ALDACTONE) 50 mg tabletIndicatio ns:Chronic systolic (congestive) heart failure ([facility] V24, [facility] V28) TAKE 1 TABLET BY MOUTH EVERY DAY 90 tablet 1 06/09/19 025 Discontin ued(Reord er) Active Problems Problem Noted Date Diagnosed Date Asthma-COPD overlap syndrome ([facility] V24, [facility]/ [facility] V28) 08/11/2024 Hypertension 02/12/2024 Insomnia 02/12/2024 Knee osteoarthritis 02/12/2024 Overview (02/12/2024): left, follows with orthopedic, rheumatology and PT JONI on CPAP 02/12/2024 Overview (02/12/2024): not using CPAP, referred to pulmonary 03/19/2017 [facility] Polysomnogram: Date 03/15/2017; Wt 270# SE 70%; [...] sleep related hypoventilation by 2018 diagnostic polysomnogram. Chronic systolic CHF (conges tive heart failure) ([facility]/HCC V24, CMS/HCC V28) 04/23/2022 Acute on chronic combined sy stolic and diastolic congestive heart failure (CMS/HCC V24, CMS/HCC V28) 11/07/2018 Nonischemic cardiomyopathy (CMS/HCC V24, CMS/HCC V28) 11/04/2018 Thyroid nodule 05/16/2018 Overview (02/12/2024): US pending Syncopal episodes 04/21/2018 Overview (02/12/2024): Follows with neurology CT head wnl 03/2018 EEG 2018 wnl Anxiety and depression 09/18/2017 Overview (02/12/2024): Following with therapy Hyperlipidemia 11/29/2016 Morbid obesity with BMI of 5 0.0-59.9, adult ([facility] V24, [facility] V28) 11/02/2016 Encounters Date Type Department Care Team Description 08/12/2024 3:30 PM EDT Office Visit Adult Medicine [address] [phone] Steve Oreilly MD Primary hypertension (Primary Dx); Nonischemic cardiomyopathy (CMS/HCC V24, CMS/HCC V28); Chronic systolic (congestive) heart failure (CMS/HCC V24, CMS/HCC V28); Chronic systolic CHF (congestive heart failure) (CMS/HCC V24, CMS/HCC V28); Asthma-COPD overlap syndrome (CMS/HCC V24, CMS/HCC V28); JONI on CPAP; Anxiety and depression; Prediabetes; Morbid obesity with BMI of 50.0-59.9, adult ([facility] V24, CMS/HCC V28) 07/06/2024 4:04 PM EDT - 07/06/2024 11:59 PM EDT Hospital Encounter Radiology Department - [address] [phone] Encounter for screening mammogram for breast cancer Discharge Disposition: Home or Self Care from Last 3 Months Immunizations Name Administration Dates Next Due Hepatitis A Adult (Havrix; V aqta) 19yo and older 11/17/2012 Hepatitis B (Tnshhyc-C-Vkkvl , Recombivax HB-Adult) 19yo and older 03/19/2013,12/15/2012,11/17/2012 Measles 11/12/2012 Mumps 11/12/2012 Rubella 11/12/2012 Tdap Tetanus diptheria acell ular pertussis (Boostrix; Adacel) 7yo and older 11/17/2012 Varicella live (Varivax) 12mo and older 11/13/19 13 Surgical History Surgery Date Site/Laterality Comments LEG SURGERY 1999 PROCEDURE: HISTORICAL LEG SURGERY; COMMENT: left tibia fracture, s/p metal plates and screws SECTION PROCEDURE: ME DELIVERY ONLY Medical History Medical History Date Comments Insomnia DX:Insomnia Hypertension DX:Hypertension Tobacco abuse DX:Tobacco abuse ; COMMENT: 02/26 PPD for 30 yrs, started age 16 Morbid obesity with BMI of 4 5.0-49.9, adult ([facility] V24, [facility] V28) 11/02/2016 DX:Morbid obesity wit h BMI of 45.0-49.9, adult ([facility]) Hyperlipidemia 11/29/2016 DX:Hyperlipidemi a History of tibial fracture DX:Hi story of tibial fracture; COMMENT: right ankle, tibia JONI (obstructive sleep apnea) DX :JONI (obstructive sleep apnea); COMMENT: not using CPAP, referred to pulmonary 03/19/2017 [facility] Polysomnogram: Date 03/15/2017; Wt 270# SE 70%; [...] with neurology CT head wnl 03/2018 EEG 2019 wnl Nonischemic cardiomyopathy ( [facility] V24, [facility] V28) 11/04/2018 DX:Nonischemic cardiomyopath y (HCC) Acute on chronic combined sy stolic and diastolic congestive heart failure ([facility] V24, [facility] V28) 11/07/2018 DX:Acute on chronic combine d systolic and diastolic congestive heart failure (HCC) Morbid obesity with BMI of 5 0.0-59.9, adult ([facility] V24, [facility] V28) 11/02/2016 DX:Morbid obesity wit h BMI of 50.0-59.9, adult (HCC) Family History Medical History Relation Name Comments [...] Tobacco: Every Day Cigarettes Smokeless Tobacco: Never Tobacco Cessation:Ready to Q uit: Not Asked; Counseling Given: Not Answered Alcohol Use Standard Drinks/Week Comments Yes 0 (1 standard drink = 0.6 oz pur e alcohol) Housing Instability Answer Date Recorde d Are you worried that in the next 2 months you may not have stable housing? Patient declined 08/12/2024 Food Access & Nutrition Answer Date Rec orded Do you have access to a vari ety of food including fruits and vegetables? Patient declined 08/12/2024 Health Literacy Answer Date Recorded How often do you need to hav e someone help you when you read instructions, pamphlets, or other written material from your doctor or pharmacy? Patient declined 08/12/2024 Caregiver: How often do you need to have someone help you when you read instructions, pamphlets, or other written material from your doctor or pharmacy? Not on file 025 Financial Risk Answer Date Recorded How hard is it for you to pa y for the very basics like food, housing, medical care, and air conditioning / heating? Somewhat hard 08/12/2024 Transportation Answer Date Recorded Has the lack of transportati on kept you from meetings, work, or from getting things needed for daily living? Patient declined 08/12/2024 Has the lack of transportati on kept you from medical appointments or from getting medications? Patient declined 08/12/2024 Social Isolation Answer Date Recorded How often do you feel lonely or isolated from those around you? Patient declined 08/12/2024 Food Risk Answer Date Recorded Within the past 12 months we worried whether our food would run out before we got money to buy more. Patient declined 025 Within the past 12 months th e food we bought just didn't last and we didn't have money to get more. Patient declined 07/26 Dependent Care Answer Date Recorded Do you need help finding or paying for care for your loved ones. For example, child support investigator or elderly care for an older adult? Patient declined 08/12/2024 Education Answer Date Recorded Do you think completing more education or training, like finishing a GED, going to college, or learning a trade, would be helpful for you? Patient declined 08/12/2024 Employment and Income Answer Date Recor ded During the last four weeks, have you been actively looking for work? Patient declined 08/12/2024 Living Situation Answer Date Recorded What is your living situation? 0 08/12/2024 Comments No Sex and Gender Information Value Date Recorded Sex Assigned at Not on file Legal Sex Female 11:06 AM EST Gender Identity Not on file Sexual Orientation Not on file Obstetrics History Para Term AB IAB SAB Ectopic Multiple Livin g Live Births 3 3 3 3 Date Outcome GA Total Labor Labor/2nd/3rd Weight Sex Type Anes PTL Karen A1 A5 Name Clin Term Term Term Last Filed Vital Signs Vital Sign Reading Time Taken Comments Blood Pressure 130/86 08/12/2024 3:16 PM EDT Pulse 78 08/12/2024 3:16 PM EDT Temperature 36.6 C (97.9 F) 08/12/2024 3:16 PM EDT Respiratory Rate 18 08/12/2024 3:16 PM EDT Oxygen Saturation - - Inhaled Oxygen Concentration - - Weight 125 kg (276 lb) 08/12/2024 3:16 PM EDT Height 157.5 cm (5' 2 ) 08/12/2024 3:16 PM EDT Body Mass Index 50.48 08/12/2024 3:16 PM EDT Plan of Treatment Upcoming Encounters Date Type Department Care Team (Late st Contact Info) Description 11/18/2024 3:30 PM EDT Office Visit Adult Medicine [facility] [address] [place] [phone] Steve Oreilly MD [address] [place] [id number] Health Maintenance Due Date Last Done Comments Pneumococcal Vaccine: Pediatrics (0 to 5 Years) and At-Risk Patients (6 to 49 Years) (1 of 2 - PCV) 09/25/1995 Colorectal Cancer Screening: Colonoscopy 02/03/2022 Medicare Annual Wellness Visit 02/03/2022 DTaP,Tdap,and Td Vaccines (2 - Td or Tdap) 11/17/2022 11/17/2012 COVID-19 Vaccine (3 - season) 2023 08/01/2020, 07/04/2020 Hypertension/CHF/CAD Annual BMP Blood Test 08/20/2024 08/21/2023, 08/21/2023 Influenza Vaccine (#1) 2024 Depression Screening 08/12/2025 08/12/2024, 11/29/19 24 Social Influencers of Health Screening 08/12/2025 08/12/2024 Breast Cancer Screening 07/06/2026 07/07/19 25, 05/17/2023, 05/15/2022, Additional history exists Cholesterol Screening (Lipid Panel) [...] patient's age to complete this topic Meningococcal B Vaccine Aged Out No l onger eligible based on patient's age to complete this topic RSV Immunization Patients Under 20 months Aged Out No longer eligible based on patient's age to complete this topic Procedures Procedure Name Priority Date/Time Associated Diagnosis Comments MG MAMMO DIGITAL SCREENING W MARLON BILAT Routine 07/06/2024 4:16 PM EDT Encounter for screening mammogram for breast cancer DEPRESSION SCREENING Routine 11/29/2023 HPV Routine 11/07/2023 HEPATITIS C SCREENING Routine 11/07/2023 HIV SCREENING Routine 11/07/2023 ANNUAL BMP BLOOD TEST Routine 08/21/2023 LIPID PANEL Routine 08/21/2023 from Last 3 Months or Most Recently Relevant to Health Maintenance Results * MG Mammo Digital Screening w Marlon bilat (07/06/2024 4:16 PM EDT) Anatomical Region Laterality Modality Breast Bilateral Mammography 07/07/2024 2:55 PM EDT Impressions 07/07/2024 3:01 PM EDT 1. No mammographic evidence of malignancy 2. Scattered fibroglandular tissue BI-RADS CATEGORY: 2 - BENIGN RECOMMENDATION: Screening bilateral mammogram is recommended in 1 year. Mammo Location: [facility], [address] [place] [address], [id number], . -------- FINAL REPORT -------- Dictated By: Nena Mukherjee Dictated Date: 07/07/2024 14:55 ET Assigned Physician: Nena Mukherjee Reviewed and Electronically Signed By: Nena Mukherjee Signed Date: 07/07/2024 15:01 ET Workstation ID: [id number] Transcribed By: Self Edit Transcribed Date: 07/07/2024 14:55 ET Narrative 07/07/2024 3:01 PM EDT A BILATERAL DIGITAL 3D SCREENING MAMMOGRAPHY HISTORY: Routine screening. No family history of breast cancer. COMPARISON: Multiple priors dating back to 03/05/2020 Technique: Bilateral full field digital mammography (3D) was performed using standard CC and MLO projections , left breast exaggerated CC CAD was used to evaluate this mammogram. FINDINGS: Right: No suspicious masses, groups of microcalcification or areas of architectural distortion identified. Stable typically benign parenchymal asymmetries. Left: No suspicious masses, groups of microcalcification or areas of architectural distortion identified. Stable typically benign parenchymal asymmetries. BREAST DENSITY: B - There are scattered areas of fibroglandular density. Procedure Note Nena Mukherjee MD - 07/07/2024 A BILATERAL DIGITAL 3D SCREENING MAMMOGRAPHY HISTORY: Routine screening. No family history of breast cancer. COMPARISON: Multiple priors dating back to 03/05/2020 Technique: Bilateral full field digital mammography (3D) was performedusing standard CC and MLO projections , left breast exaggerated CC CAD was used to evaluate this mammogram. FINDINGS: Right: No suspicious masses, groups of microcalcification or areas ofarchitectural distortion identified. Stable typically benign parenchymalasymmetries. Left: No suspicious masses, groups of microcalcification or areas ofarchitectural distortion identified. Stable typically benign parenchymalasymmetries. BREAST DENSITY: B - There are scattered areas of fibroglandular density. IMPRESSION: 1. No mammographic evidence of malignancy 2. Scattered fibroglandular tissue BI-RADS CATEGORY: 2 - BENIGN RECOMMENDATION: Screening bilateral mammogram is recommended in 1 year. Mammo Location: [facility], [address] [place] [address], [id number], . -------- FINAL REPORT -------- Dictated By: Nena Mukherjee Dictated Date: 07/07/2024 14:55 ET Assigned Physician: Nena Mukherjee Reviewed and Electronically Signed By: Nena Mukherjee Signed Date: 07/07/2024 15:01 ET Workstation ID: [id number] Transcribed By: Self Edit Transcribed Date: 07/07/2024 14:55 ET Result [facility] Steve Oreilly MD IMG BI PROCEDURES Final Res ult * Depression Screening (11/29/2023) [facility] Depression Screening abstracted Result [facility] Provider HEALTH MAINTENANCE Final Result * Cervical Cancer Screening: HPV (11/07/2023) [facility] Cervical Cancer Screening: HPV negative, abstracted Result [facility] Provider HEALTH MAINTENANCE Final Result * HIV Screening (11/07/2023) [facility] HIV Screening abstracted Result [facility] Provider HEALTH MAINTENANCE Final Result * Hepatitis C Screening (11/07/2023) [facility] Hepatitis C Screening abstracted Result [facility] Provider HEALTH MAINTENANCE Final Result * Annual BMP Blood Test (08/21/2023) [facility] Annual BMP Blood Test abstracted Result [facility] Provider HEALTH MAINTENANCE Final Result * (ABNORMAL) Lipid panel (08/21/2023) [facility] LDL/HDL Ratio 5(A) 0 - 4 Triglycerides 105 0 - 150 mg/dL Cholesterol 187 0 - 200 mg/dL HDL 42 >=40 mg/dL LDL Cholesterol 124(A) 0 - 100 mg/dL Blood Venous blood specimen / Unknown Result [facility] Provider LAB BLOOD ORDERABLES Iesha l Result from Last 3 Months or Most Recently Relevant to Health [place] [address] MEDICARE MEDICAID - [place] Care Teams Emergency Telecommunications Dispatcher Relationship Specialty Start Date End Date Steve Oreilly MD [address] [place] [address] PCP - General Internal Medicine 08/31/21
== END ==
LOC: HO.CARD 12:55
PROVIDERS: Visit Provider Internal Medicine Cardiovascular Disease
DX: I50.22 Chronic systolic (congestive) heart failure (principal)
CPT/HCPCS: 93306

== ENCOUNTER → 2024-09-02 12:59 | Outpatient (BNV) | payer MEDICARE, MEDICAID, SELFPAY | PROVIDERS: Visit Provider Internal Medicine Cardiovascular Disease | DX: I51.89 Other ill-defined heart diseases (principal) | CPT/HCPCS: 93306 ==

== ENCOUNTER 2024-12-14 13:20 | Outpatient (AMB) | payer MEDICARE, MEDICAID, SELFPAY ==
--- NOTE | 2024-12-14 13:25 | A.OFFVIS_ITS ---
Vital Signs 12/14/24 13:27 Height 5 ft 1 in Weight 266 lb 12.149 oz BMI 50.4 BP 120/74 Blood Pressure Location Lt brachial Position Sitting Pulse 72 Intake Visit Reasons: 6m follow up r/s 10-01-24 Intake Note: 6 month follow-up feeling good Director Sales And Marketing Required: No Allergies SEASONAL ALLERGIES Allergy (Unknown, Uncoded 06/21/20 12:09) ASTHMA, NASAL CONGESTION Medication List - Last Reconciled 12/14/24 by Abdias Yu MD albuterol sulfate 90 mcg/actuation (Ventolin HFA) 2 puffs inhalation Q4H PRN amitriptyline 25 mg PO BEDTIME PRN biotin 1,000 mcg PO DAILY PRN blood pressure monitor (Blood Pressure Kit) As directed bumetanide 2 mg PO DAILY carvedilol 12.5 mg PO BID cetirizine 10 mg PO DAILY cyanocobalamin (vitamin B-12) 1,000 mcg PO DAILY dapagliflozin propanediol (Farxiga) 5 mg PO DAILY sacubitril-valsartan 49-51 mg (Entresto) 1 tab PO BID semaglutide (Ozempic) 1 mg subcut QWEEK spironolactone 50 mg PO DAILY 30 days HPI Comments Details: Brook comes for follow-up. He has been doing well from cardiac perspective. She is currently on GLP 1 antagonist and has lost about 40 lb. She is very excited about it. Her main complaint is pain in her anterior belly, she thinks she has a ventral hernia. She is planning to undergo colonoscopy in near future. Most recent echocardiogram shows persistent moderate to severe LV systolic dysfunction with LVEF of 30-35%. She has been taking all her medications. She has not worsening shortness of breath, orthopnea, PND, leg edema. She denies any palpitations, lightheadedness, syncope. [facility]LY [facility] Medical History Morbid obesity Essential hypertension Acute on chronic HFrEF (heart failure with reduced ejection fraction) Pneumonia Obesity JONI (obstructive sleep apnea) HTN (hypertension) Nonischemic cardiomyopathy Chronic HFrEF (heart failure with reduced ejection fraction) Surgical History Hx of section Family History Mother HTN (hypertension) Social History Household Members: Spouse and Children Housing: Apartment Do you presently have visiting nurse or other home services: No Alcohol intake: never Tobacco use type: Cigarette Cigarette Packs Per Day: 1 Second Hand Smoke Exposure: Yes service: No Review of Systems Const Denies chills, Denies fatigue, Denies fever(s), Denies frequent falls, Denies weakness, Denies weight gain and Denies weight loss ENT Denies dizziness Card Denies chest pain, Denies leg edema, Denies lightheadedness, Denies palpitations, Denies dyspnea, Denies dyspnea on exertion, Denies orthopnea and Denies other (loss of consciousness) Resp Denies cough, Denies dyspnea and Denies dyspnea on exertion GI Denies hematochezia and Denies change in stool character Musc Denies abnormal gait, Denies muscle weakness, Denies numbness, Denies radiating pain into limb and Denies tingling Neuro Denies abnormal gait, Denies dizziness, Denies frequent falls, Denies numbness, Denies tingling and Denies weakness Endo Denies fatigue and Denies palpitations Physical Exam Vital Signs: Last Vital Signs Pulse 72 12/14/24 13:27 BP 120/74 12/14/24 13:27 BMI result Body Mass Index 50.4 Const General: cooperative, alert, awake and in distress mild and respiratory Nutritional Appearance: obese centrally obese Orientation/consciousness: patient oriented x3 Neck Neck: Yes trachea midline, Yes supple and Yes JVD Resp Effort & Inspection: normal respiratory effort Auscultation: no wheezes and diminished lung sounds Cardio Jugular venous distension: JVD Palpation: abnormal PMI displaced PMI Rate: regular rate Rhythm: regular rhythm Heart sounds: S1 normal heart sound present and S2 normal heart sound present GI Auscultation: normal bowel sounds Neuro General: patient oriented x3 and no focal motor deficits Extrem General: No clubbing, No cyanosis and Yes edema Assessment & Plan Assessment & Plan (1) Chronic HFrEF (heart failure with reduced ejection fraction): Code(s): I50.22 - Chronic systolic (congestive) heart failure Category: Medical Plan: Heart failure with reduced ejection fraction with moderate to severe LV systolic dysfunction, persistent despite adequate medical therapy. She has no signs or symptoms of heart failure. She is doing well with losing weight. NYHA class 1- 2 symptoms. Continue current diuretic dose. Continue current neurohormonal modulation with carvedilol, spironolactone, Entresto as well as Farxiga therapy. He is encouraged to continue to participate in regular physical activity and weight loss program and continue with GLP 1 antagonist which should help her significantly. She is very excited about it. Her main issues now pain in his belly from possible ventral hernia. Will refer to General surgery on her behest. We discussed a can protection from ventricular arrhythmias with a primary prevention ICD. She is not interested (2) Preoperative cardiovascular examination: Code(s): Z01.810 - Encounter for preprocedural cardiovascular examination Plan: Preoperative cardiovascular risk stratification prior to colonoscopy. This is considered low risk procedure. From cardiac perspective she is optimized to undergo the procedure with low to intermediate risk for perioperative cardiovascular morbidity mortality. Continue all medications in the periprocedural time except for bumetanide which can be held on the day of the procedure. Will follow up in the clinic in 6 months time, sooner PRN. Thank you for allowing me to partake in her care Coding Level of Care Code Est Pt Level 4 (10263) Complex EM visit Add On G2211 Diagnoses Chronic HFrEF (heart failure with reduced ejection fraction) I50.22 Preoperative cardiovascular examination Z01.810
[2024-12-14 13:27] VITALS: BP 120/74; PULSE 72; BMI 50.4
--- OUTSIDE RECORDS SUMMARY | 2024-12-14 16:21 | XMS_ITS | Clinical Summary ---
Author Organization [facility] [address] [place] [address] [address] [place] [address] Phone Care Team Providers Care Behavioral Health Director Name Role Phone Steve Oreilly MD Primary [...] MOUTH EVERYDAY AT BEDTIME 12/02/19 24 Active nicotine polacrilex (NICORETTE) 2 mg [...] wheezing. 300 mL 1 05/12/19 25 Active PARoxetine (PAXIL) 10 mg tablet Take 1 tablet (10 mg total) by mouth 1 (one) time each day in the morning. 90 each 08/13/19 25 Active cyanocobalamin (VITAMIN B-12) 1,000 mcg tablet Take 1 tablet (1,000 mcg total) by mouth 1 (one) time each day. 90 tablet 1 08/13/19 25 Active spironolactone (ALDACTONE) 50 mg tabletIndicatio ns:Chronic systolic (congestive) heart failure (CMS/[facility] V24, CMS/[facility] V28) Take 1 tablet (50 mg total) by mouth 1 (one) time each day. 90 tablet 1 08/13/19 25 Active albuterol HFA (Ventolin HFA) 90 mcg/actuation inhaler Inhale 2 puffs by mouth every 4 (four) hours if needed for wheezing. 18 each 2 08/13/19 25 Active Entresto 49-51 mg per tablet Take 1 tablet by mouth 2 (two) times a day. 180 tablet 1 11/19/19 25 Active semaglutide (OZEMPIC) 1 mg/dose (4 mg/3 mL) injection penIndications: Morbid obesity (CMS/[facility] V24, CMS/[facility] V28) Inject 1 mg under the skin every 7 (seven) days. 3 mL 2 11/19/19 25 Active dapagliflozin propanediol (Farxiga) 5 mg tablet Take 1 tablet (5 mg total) by mouth 1 (one) time each day. 90 tablet 1 11/19/19 25 Active dapagliflozin propanediol (Farxiga) 5 mg tablet Take 5 mg by mouth daily. 08/07/19 24 025 Discontin ued(Reord er) sacubitriL-vals isi (Entresto) 49-51 mg per tablet Take 1 tablet by mouth 2 (two) times a day. 180 tablet 1 08/13/19 25 025 Discontin ued(Reord er) semaglutide (OZEMPIC) 1 mg/dose (4 mg/3 mL) injection penIndications: Morbid obesity with BMI of 50.0-59.9, adult (CMS/[facility] V24, CMS/[facility] V28) Inject 1 mg under the skin every 7 (seven) days. 3 mL 2 10/07/19 25 025 Discontin ued(Reord er) Active Problems Problem Noted Date Diagnosed Date Asthma-COPD overlap syndrome ([facility] V24, [facility] V28) 08/11/2024 Hypertension 02/12/2024 Insomnia 02/12/2024 Knee osteoarthritis 02/12/2024 Overview (02/12/2024): left, follows with orthopedic, rheumatology and PT JONI on CPAP 02/12/2024 Overview (02/12/2024): not using CPAP, referred to pulmonary [place] [facility] [place]: Date 03/15/2017; Wt 270# SE 70%; [...] Chronic systolic CHF (conges tive heart failure) ([facility] V24, [facility] V28) 04/23/2022 Acute on chronic combined sy stolic and diastolic congestive heart failure ([facility] V24, [facility] V28) 11/07/2018 Nonischemic cardiomyopathy ([facility] V24, [facility] V28) 11/04/2018 Thyroid nodule 05/16/2018 Overview (02/12/2024): US pending Syncopal episodes 04/21/2018 Overview (02/12/2024): Follows with neurology CT head wnl 03/2018 EEG 2019 wnl Anxiety and depression 09/18/2017 Overview (02/12/2024): Following with therapy Hyperlipidemia 11/29/2016 Morbid obesity with BMI of 5 0.0-59.9, adult ([facility] V24, [facility] V28) 11/02/2016 Encounters Date Type Department Care Team Description 11/24/2024 Telephone Adult Medicine [address] [phone] Steve Oreilly MD 11/19/2024 Telephone Gastroenterology - [place] [facility] [address] [facility] [address] [place] [address] Rojelio Cochran MD 11/18/2024 3:30 PM EDT Office Visit Adult [address] [phone] Steve Oreilly MD Morbid obesity ([facility] V24, [facility] V28) (Primary Dx); Prediabetes; Urinary incontinence, unspecified type; Primary hypertension; Chronic systolic CHF (congestive heart failure) ([facility] V24, [facility] V28); Asthma-COPD overlap syndrome ([facility] V24, [facility] V28); JONI on CPAP; Anxiety and depression; Screening for colorectal cancer 11/18/2024 Telephone Adult Medicine [address] [phone] Steve Oreilly MD from Last 3 Months Immunizations Immunization Administration Dates Next Due Hepatitis A Adult (Havrix; V aqta) 19yo and older 11/17/2012 Hepatitis B (Yggxbxq-X-Floxm , Recombivax HB-Adult) 19yo and older 03/19/2013,12/15/2012,11/17/2012 Measles 11/12/2012 Mumps 11/12/2012 Rubella 11/12/2012 Tdap Tetanus diptheria acell ular pertussis (Boostrix; Adacel) 7yo and older 11/17/2012 Varicella live (Varivax) 12mo and older 11/13/19 13 Surgical History Surgery Date Site/Laterality Comments LEG SURGERY 1999 PROCEDURE: HISTORICAL LEG SURGERY; COMMENT: left tibia fracture, s/p metal plates and screws SECTION PROCEDURE: [place] DELIVERY ONLY Medical History Medical History Date Comments Insomnia DX:Insomnia Hypertension DX:Hypertension Tobacco abuse DX:Tobacco abuse ; COMMENT: 02/26 PPD for 30 yrs, started age 16 Morbid obesity with BMI of 4 5.0-49.9, adult ([facility] V24, [facility] V28) 11/02/2016 DX:Morbid obesity wit h BMI of 45.0-49.9, adult ([facility]) Hyperlipidemia 11/29/2016 DX:Hyperlipidemi a History of tibial [...] 03/2018 EEG 2019 wnl Nonischemic cardiomyopathy ( [facility] V24, [facility] V28) 11/04/2018 DX:Nonischemic cardiomyopath y (HCC) Acute on chronic combined sy stolic and diastolic congestive heart failure (CMS/HCC V24, CMS/HCC V28) 11/07/2018 DX:Acute on chronic combine d systolic and diastolic congestive heart failure (HCC) Morbid obesity with BMI of 5 0.0-59.9, adult (CMS/HCC V24, CMS/HCC V28) 11/02/2016 DX:Morbid obesity wit h BMI [...] Alive Daughter 3 Alive Father Alive unknown, cony t does not know her father Maternal [...] your loved ones. For example, child support case officer or elderly care for an older adult? [...] Date Recorded What is your living situation? Unrecognized valu e 08/12/2024 Comments No Sex and Gender Information [...] Sign Reading Time Taken Comments Blood Pressure 130/88 11/18/2024 3:54 PM EDT Pulse 94 11/18/2024 3:21 PM EDT Temperature 36 C (96.8 F) 11/18/2024 3:21 PM EDT Respiratory Rate 18 08/12/2024 3:16 PM EDT Oxygen Saturation - - Inhaled Oxygen Concentration - - Weight 123 kg (271 lb) 11/18/2024 3:21 PM EDT Height 157.5 cm (5' 2 ) 11/18/2024 3:21 PM EDT Body Mass Index 49.57 11/18/2024 3:21 PM EDT Plan of Treatment Upcoming Encounters Date Type Department Care Team (Late st Contact Info) Description 01/04/2025 3:00 PM EST Appointment [facility] [address] [place] [address] Rojelio Cochran MD [address] [id number] 02/23/2025 2:00 PM EST Office Visit Adult Medicine [address] [phone] Padmini Islas PA [address] [place], [place] Health Maintenance Due Date Last Done Comments Colorectal Cancer Screening: Colonoscopy 1976 Pneumococcal Vaccine: Pediatrics (0 to 5 Years) and At-Risk Patients (6 to 49 Years) (1 of 2 - PCV) 09/25/1995 Medicare Annual Wellness Visit 02/03/2022 DTaP,Tdap,and Td Vaccines (2 - Td or Tdap) 11/17/2022 11/17/2012 Hypertension/CHF/CAD Annual BMP Blood Test 08/20/2024 08/21/2023, 08/21/2023 COVID-19 Vaccine (3 - season) 2024 08/01/2020, 07/04/2020 Influenza Vaccine (#1) 2024 Social Influencers of Health Screening 08/12/2025 08/12/2024 Breast Cancer Screening 07/06/2026 07/07/19 25, 05/17/2023, 05/15/2022, Additional history exists Cholesterol Screening (Lipid Panel) 08/20/2028 08/21/2023, 08/21/2023 Cervical Cancer Screening: HPV 11/06/2028 11/07/2023 RSV Immunization Adult Patients (1 - 1-dose 75+ series) 09/25/2051 Varicella Vaccines Aged Out 11/12/2012 No longer eligible based on patient's age to complete this topic Hepatitis A Vaccines Aged Out 11/17/2012 No long er eligible based on patient's age to complete this topic Hepatitis B Vaccines Completed 03/19/2013, 12/15/2012, 11/17/2012 HIV Screening Completed 11/07/2023, 11/07/2023 Hepatitis C Screening Completed 11/07/2023 Depression Screening Completed 08/12/2024, 11/29/19 24 HIB Vaccines Aged Out No longer eligi [...] on patient's age to complete this topic Goals Goal Patient Goal Type Associated Problems Recent Progress Patient-Stated? Author Autogenerat ed Goal Care Plan Autogenerated Problem No Raven Velasco Procedures Procedure Name Priority Date/Time Associated Diagnosis [...] is recommended in 1 year. Mammo Location: [facility], [address] [place] [address], [phone], . -------- FINAL REPORT -------- Dictated By: Nena Mukherjee Dictated Date: 07/07/2024 14:55 ET Assigned Physician: Nena Mukherjee Reviewed and Electronically Signed By: Nena Mukherjee Signed Date: 07/07/2024 15:01 ET Workstation ID: [id number] Transcribed By: Self Edit Transcribed Date: 07/07/2024 [...] is recommended in 1 year. Mammo Location: [facility], [address] [place] [address], [phone], . -------- FINAL REPORT -------- Dictated By: Nena Mukherjee Dictated Date: 07/07/2024 14:55 ET Assigned Physician: Nena Mukherjee Reviewed and Electronically Signed By: Nena Mukherjee Signed Date: 07/07/2024 15:01 ET Workstation ID: [id number] Transcribed By: Self Edit Transcribed Date: 07/07/2024 14:55 ET Result [facility] Steve Oreilly MD IMG BI PROCEDURES Final Res ult * Depression Screening (11/29/2023) [facility] Depression Screening abstracted Result [facility] Provider HEALTH MAINTENANCE Final Result * Cervical Cancer Screening: HPV (11/07/2023) [facility] Cervical Cancer Screening: HPV negative, abstracted Result [facility] Provider HEALTH MAINTENANCE Final Result * HIV Screening (11/07/2023) [facility] HIV Screening abstracted Result [facility] Provider HEALTH MAINTENANCE Final Result * Hepatitis C Screening (11/07/2023) [facility] Hepatitis C Screening abstracted Result [facility] Provider HEALTH MAINTENANCE Final Result * Annual BMP Blood Test (08/21/2023) [facility] Annual BMP Blood Test abstracted Result [facility] Provider HEALTH MAINTENANCE Final Result * (ABNORMAL) Lipid panel (08/21/2023) [facility] LDL/HDL Ratio 5(A) 0 - 4 Triglycerides 105 0 - 150 mg/dL Cholesterol 187 0 - 200 mg/dL HDL 42 >=40 mg/dL LDL Cholesterol 124(A) 0 - 100 mg/dL Blood Venous blood specimen / Unknown Result [facility] Historical Provider LAB BLOOD ORDERABLES Iesha l Result from Last 3 Months or Most Recently Relevant to Health Maintenance Additional Health Concerns Active Problems Noted Date Diagnosed Date Autogenerated Problem 12/06/2024 Insurance MEDICARE MEDICAID - [place] Care Teams Behavioral Health Director Relationship Specialty Start Date End Date Steve Oreilly MD [address] [place] [address] PCP - General Internal Medicine 08/31/21
--- OUTSIDE RECORDS SUMMARY | 2024-12-14 16:22 | XMS_ITS | Clinical Summary ---
Author Organization [facility] Address [address] [facility] [address] [place] [phone] Phone Care Team Providers Care Oncology Social Worker Name Role Phone Sobia Cannon MD Primary Care Provider [phone] Allergies No known active allergies Medications Medication-Free Text Inhale into the lungs. CPAP Historical (HISTORICAL CPAP) Active sacubitriL-vals isi (SACUBITRIL-DELL SARTAN) 49-51 mg per tablet Take 1 tablet by mouth. 0 Active spironolactone (ALDACTONE) 50 MG tablet Take 50 mg by mouth daily. Active bumetanide (BUMEX) 2 MG tablet Take 2 mg by mouth 2 (two) times a day. Active Active Problems Problem Noted Date Diagnosed Date Nonischemic cardiomyopathy 07/12/2020 Sinus bradycardia 07/12/2020 Tobacco abuse 07/12/2020 Social History Tobacco Use Types Packs/Day Years Used Date Smoking Tobacco: Every Day Cigarettes Smokeless Tobacco: Never Alcohol Use Standard Drinks/Week Comments Not Currently 0 (1 standard drink = 0.6 oz pur e alcohol) rare Education Answer Date Recorded Are you interested in more education? Not on kimberlee e 06/23/2022 Are you concerned about learning? Not on file 06/23/2022 No 06/23/2022 No 06/23/2022 Digital Access Answer Date Recorded No 07/21/2022 No 07/21/2022 No 07/21/2022 Reliable internet access at home? Not on file 07/21/2022 Device with a working camera? Not on file Comments Unknown Sex and Gender Information Value Date Recorded Sex Assigned at Not on file Legal Sex Female 8:15 AM EDT Gender Identity Not on file Sexual Orientation Not on file Last Filed Vital Signs Vital Sign Reading Time Taken Comments Blood Pressure 142/80 07/12/2020 1:24 PM EDT Pulse 56 07/12/2020 1:24 PM EDT Temperature - - Respiratory Rate - - Oxygen Saturation 98% 07/12/2020 1:24 PM EDT Inhaled Oxygen Concentration - - Weight 118.4 kg (261 lb) 07/12/2020 1:24 PM EDT Height 157.5 cm (5' 2 ) 07/12/2020 1:24 PM EDT Body Mass Index 47.74 07/12/2020 1:24 PM EDT Plan of Treatment Health Maintenance Due Date Last Done Comments LIPID PANEL 1976 POTASSIUM LEVEL 1976 DEPRESSION SCREENING 1988 SMOKING Hx and SMOKELESS TOB ACCO SCREENING 1989 HEPATITIS C SCREENING 1994 HIV ONE-TIME SCREENING (18-6 5 YEARS) 1994 PNEUMOCOCCAL VACCINES (0-49 years) (1 of 2 - PCV) 09/25/1995 PAP SMEAR 1997 MAMMOGRAM 2016 COLOGUARD 2021 COLONOSCOPY 2021 COLORECTAL CANCER SCREENING 2021 FIT TEST 2021 FOBT 2021 SIGMOIDOSCOPY 2021 VIRTUAL COLONOSCOPY 2021 Adult Td,Tdap Booster 11/17/2022 11/17/2012 INFLUENZA VACCINE (#1) 2024 COVID-19 VACCINE (2 - 2024-2 6 season) 2024 07/04/2020 HEPATITIS A VACCINES Aged Out 11/17/2012 No long er eligible based on patient's age to complete this topic HIB VACCINES Aged Out No longer eligi ble based on patient's age to complete this topic MENINGOCOCCAL VACCINES (ACWY) Aged Out No longer eligible based on patient's age to complete this topic MENINGOCOCCAL VACCINES (B) Aged Out N o longer eligible based on patient's age to complete this topic Medical Devices Not on file Insurance [employer] [facility] [employer] Care Teams Oncology Social Worker Relationship Specialty Start Date End Date Sobia Cannon MD [address] [facility] [place] [id number] PCP - General Pediatrics 06/28/20 Additional Source Comments The information contained in this document represents components of the legal health record. It is not the complete legal health record.[facility]
== END 2024-12-14 13:43 | disposition home or self-care (01) ==
PROVIDERS: Family Provider Internal Medicine; Visit Provider Internal Medicine Cardiovascular Disease
DX: I50.22 Chronic systolic (congestive) heart failure (principal); Z01.810 Encounter for preprocedural cardiovascular examination
CPT/HCPCS: 99214; G2211

== ENCOUNTER → 2024-12-14 13:20 | Outpatient (BNVA) | payer MEDICARE, MEDICAID, SELFPAY | PROVIDERS: Visit Provider Internal Medicine Cardiovascular Disease | DX: Z01.810 Encounter for preprocedural cardiovascular examination (principal); I11.0 Hypertensive heart disease with heart failure; I50.22 Chronic systolic (congestive) heart failure | CPT/HCPCS: 99212 ==